=== PATIENT | male | born 1935 | race Caucasian/White ===

== ENCOUNTER 2018-11-22 13:33 | Inpatient (IN) | payer MEDICARE, OTHER ==
[~2018-11-22] VITALS: Ht 167.6 cm; Wt 80.3 kg
--- NOTE | 2018-11-22 13:55 | NUR ---
REPORT RECEIVED FROM ADELINA SHAFFER AT [facility]. THIS RN WILL AWAIT PT'S ARRIVAL.
[2018-11-22] MEDS ORDERED: ONDANSETRON 4 MG/2 ML (SDV) Z0FRAN IV PRN (14:00)
[2018-11-22] MEDS ORDERED: MILK OF MAGNESIA 400 MG/5 ML 30 ML UDC PO PRN (14:00)
[2018-11-22] MEDS ORDERED: ACETAMINOPHEN 500 MG TAB (TYLENOL) PO PRN (14:00)
[2018-11-22] MEDS ORDERED: BENZONATATE 100 MG (TESSALON) CAPSULE PO PRN (14:00)
[2018-11-22] MEDS ORDERED: ANTACID SUSP 30 ML UDC (MYLANTA) PO PRN (14:00)
--- NOTE | 2018-11-22 14:40 | NUR ---
MARIA L CORREA admitted to room 404-1, with an admitting diagnosis of SEPSIS, on 11/22/18 from [facility] ED via EMS. MARIA L CORREA introduced to surroundings, call light, bed controls, phone, TV, temperature control, lights, meal times, smoking policy, visitor policy, side rail policy, bathrooms and showers. Patient Rights given to patient in the handbook. MARIA L CORREA verbalizes understanding that [facility] is not responsible for the loss or damage to any personal effects or valuables that are kept in the patients possession during their hospitalization. MARIA L CORREA verbalizes understanding of Interdisciplinary Patient Education. Patient and family were informed about the Rapid Response Team and its purpose. THIS RN WILL ASSUME PT CARE AT THIS TIME.
[2018-11-22] MEDS ORDERED: PIPERACILLIN/TAZO 4.5 GM/NS 100 ML IV NR ×2 (15:00)
[2018-11-22] MEDS ORDERED: CATHETER FLUSH 10 ML SYR IV PRN (15:15)
[2018-11-22] MEDS: NS IV 1000 ML 1,000 ML IV SCH (15:26)
[2018-11-22 15:30] VITALS: BP 107/70
--- NOTE | 2018-11-22 15:35 | History & Physical-Hospitalist ---
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 He states he just couldn't wake up this morning and really dang snot give much other detail. He is very tearful during exam and states it is due to his stroke. He becomes easily distraught and states that his knows his history. No family is at bedside to assist with HPI or ROS. Most o fhistory is from report from MD at OSH. He reportedly has had a cough and fever and that is why his brought him to the ER. He was found to have an elevated white count and left sided infiltrate on CXR there and was transferred here for admission. Source: patient Exam Limitations: clinical condition Date Seen 11/22/18 Time Seen by a Provider: 15:35 Attending Physician Luis Tony MD PCP SelfSumeet MD Referring Physician Date of Admission Nov 22, 2018 at 14:40 Home Medications & Allergies Home Medications Reviewed patient Home Medication Reconciliation performed by pharmacy medication reconciliations mechanical system technician and/or nursing. Patients Allergies have been reviewed. Allergies Allergies Coded Allergies aspirin (Verified Allergy, Severe, 11/22/18) butalbital (Verified Allergy, Severe, 11/22/18) caffeine (Verified Allergy, Severe, 11/22/18) atropine (Verified Allergy, Unknown, 11/22/18) celecoxib (Verified Allergy, Unknown, 11/22/18) diphenoxylate (Verified Allergy, Unknown, 11/22/18) levofloxacin (Verified Allergy, Unknown, 11/22/18) strawberry (Verified Allergy, Unknown, 11/22/18) Uncoded Allergies BEE STING ( Allergy, Severe, 11/22/18) Past Snoiykq-Hxpult-Yvqwjp Hx Past Med/Social Hx: Reviewed Nursing Past Med/Soc Hx Patient Social History Marrital Status: Employed/Student: retired Smoking Status: Former Smoker Past Medical History Cardiac: Atrial Fibrillation, Hypertension Neurological: Stroke Genitourinary: Prostate Problems Endocrine: Diabetes, Non-Insulin dep Psychosocial: Depression Family History Reviewed Nursing Family Hx No Pertinent Family Hx Review of Systems ROS-Unable to Obtain: very limited but tearfulness Constitutional: see HPI, fever Respiratory: cough; No phlegm Physical Exam Physical Exam Vital Signs Vital Signs - First Documented 11/22/18 11/22/18 15:00 15:30 Temp 100.5 Pulse 134 Resp 18 B/P (MAP) 107/70 (82) Pulse Ox 95 O2 Delivery Nasal Cannula O2 Flow Rate 4.00 Capillary Refill : Height, Weight, BMI Height: '" Weight: 177lbs. 2.0oz. [id number]; BMI Method: General Appearance: Chronically ill, Other (tearful throughout must of exam) HEENT: PERRL/EOMI, Moist Mucous Membranes, Other (sunken eyes) Neck: Non Tender, Supple Respiratory: No Accessory Muscle Use, No Respiratory Distress, Crackles (left sided) Cardiovascular: Systolic Murmur, Tachycardia Gastrointestinal: Normal Bowel Sounds, Non Tender, Soft Extremity: Normal Capillary Refill, No Calf Tenderness, No Pedal Edema Neurologic/Psychiatric: Alert, Oriented x3, Other (labile affect, went from conversant and pleasant to weaping in seconds) Skin: Normal Color, Warm/Dry Results Results/Procedures Labs Laboratory Tests 11/23/18 06:00 Patient resulted labs reviewed. Assessment/Plan Admission Diagnosis Sepsis from CAP Admission Status: Inpatient Order (span 2 midnights) Reason for Inpatient Admission: Sepsis, needs IV abx, curb score elevated Diagnosis/Problems Diagnosis/Problems (1) Sepsis Status: Acute Assessment & Plan: Febrile with leukocytosis No hypotension, lactic acid normal at outside facility Received Zosyn, will continue Cultures done there, will await results Qualifiers: Sepsis type: sepsis due to unspecified organism Qualified Codes: A41.9 - Sepsis, unspecified organism (2) CAP (community acquired pneumonia) Status: Acute Assessment & Plan: LLL per outside records Contineu abx as above Will get strep pna and legionella antigens Qualifiers: Laterality: left Lung location: lower lobe of lung Qualified Codes: J18.1 - Lobar pneumonia, unspecified organism (3) CVA, old, hemiparesis Assessment & Plan: left sided weakness predates this admission from CVA 7 years ago PT/OT will in the hospital LUIS TONY MD Nov 22, 2018 15:35
[2018-11-22] MEDS: ACETAMINOPHEN 325 MG TABLET PO PRN (15:37)
[2018-11-22] MEDS ORDERED: METF-398 PO (15:49)
[2018-11-22] MEDS ORDERED: MONT10TA24 PO (15:49)
[2018-11-22] MEDS ORDERED: FINA5TAB6 PO (15:49)
[2018-11-22] MEDS ORDERED: WARF3TAB56 PO (15:49)
[2018-11-22] MEDS ORDERED: ATOR10TA66 PO (15:49)
[2018-11-22] MEDS ORDERED: TAMS0.4C2 PO (15:49)
[2018-11-22] MEDS ORDERED: TRIM100T PO (15:49)
[2018-11-22] MEDS ORDERED: LISI-556 PO (15:49)
[2018-11-22] MEDS ORDERED: SITA100T12 PO (15:49)
[2018-11-22] MEDS ORDERED: OMEP20CA12 PO (15:49)
[2018-11-22] MEDS ORDERED: WARF1TAB82 PO (15:49)
[2018-11-22] MEDS ORDERED: FLU QUADRIvalent (5+ YOA) 2018-2019 (AFLURIA) 0.5 ML IM ONE (16:00)
[2018-11-22] MEDS ORDERED: ASCO-262 PO (16:09)
[2018-11-22] MEDS ORDERED: MULT-35 PO (16:09)
[2018-11-22] MEDS ORDERED: NIAC500T24 PO (16:09)
[2018-11-22] MEDS ORDERED: IRON150C3 PO (16:09)
[2018-11-22] MEDS ORDERED: ACET-2267 PO (16:09)
[2018-11-22] MEDS ORDERED: FLAX100031 PO (16:09)
[2018-11-22] MEDS ORDERED: CHOL2000 PO (16:09)
[2018-11-22] MEDS ORDERED: FAMO-119 PO (16:09)
--- NOTE | 2018-11-22 16:11 | NUR ---
WENT OVER THE EXT MED HX WITH THE PATIENTS , SHE VERIFIED HOW HE TAKES HIS MEDICATIONS WELL LISTED HIS OTC MEDS. SHE STATES HIS LIPITOR DOSE HAS BEEN DECREASED TO 1/2 TAB DAILY RECENTLY.
--- NOTE | 2018-11-22 16:57 | NUR ---
THIS RN SPOKE WITH DR SHELLEY IN REGARDS TO PT DIET. NEW ORDER RECEIVED AT THIS TIME
[2018-11-22 17:05] VITALS: BP 107/70
[2018-11-22] MEDS ORDERED: RT-ALBUTEROL/IPRATROPIUM 3 ML (DUONEB) VIAL INH PRN (17:30)
[2018-11-22] MEDS ORDERED: RT-ALBUTEROL SULF 2.5 MG/3 ML PRE-MIX VIAL IH PRN (18:00)
[2018-11-22 19:20] VITALS: BP 106/71
[2018-11-22] MEDS: RT-ALBUTEROL SULF 2.5 MG/3 ML PRE-MIX VIAL IH SCH (19:33)
--- NOTE | 2018-11-22 20:00 | NUR ---
UPON ASSESSMENT, PATIENTS SCROTUM DOES HAVE SEVERAL SMALL AREAS WHERE SKIN IS BROKEN. CLEANSED WELL, APPLIED ZINC AND A SCROTAL SLING TO HELP KEEP AREA DRY. PATIENT SPILLS WHEN USING HIS URINAL. Addendum: 11/22/18 at 2257 by CHAVA HARVEY RN Amended: Links added.
[2018-11-22] MEDS ORDERED: RT-ALBUTEROL/IPRATROPIUM 3 ML (DUONEB) VIAL INH SCH (21:00)
[2018-11-22] MEDS: inSUlin ASPART (NovoLOG) 1 UNIT/0.01 ML (CHARGE PER UNIT) SC SCH (21:02)
[2018-11-22] MEDS: PIPERACILLIN SODIUM/TAZOBACTAM 4.5 GM in NS (IVPB) 100 ML IV SCH (21:02)
[2018-11-22 23:17] VITALS: BP 130/63
[2018-11-23] MEDS: NS IV 1000 ML 1,000 ML IV SCH (01:10)
[2018-11-23] MEDS: RT-ALBUTEROL SULF 2.5 MG/3 ML PRE-MIX VIAL IH SCH ×4 (03:06→20:18)
[2018-11-23 04:19] VITALS: BP 125/59
[2018-11-23] MEDS: PIPERACILLIN SODIUM/TAZOBACTAM 4.5 GM in NS (IVPB) 100 ML IV SCH ×3 (05:13→21:28)
[2018-11-23] MEDS: inSUlin ASPART (NovoLOG) 1 UNIT/0.01 ML (CHARGE PER UNIT) SC SCH ×4 (05:44→21:00)
[2018-11-23 06:15] LABS: BASOPHILS % (AUTO) 0 % (0-10); EOSINOPHILS # (AUTO) 0.1 10^3/uL (0.0-0.3); EOSINOPHILS % (AUTO) 1 % (0-10); HEMATOCRIT 29 % (40-54); HEMOGLOBIN 9.1 G/DL (13.3-17.7); LYMPHOCYTES # (AUTO) 2.8 X 10^3 (1.0-4.0); LYMPHOCYTES % (AUTO) 20 % (12-44); MEAN CORPUSCULAR HEMOGLOBIN 28 PG (25-34); MEAN CORPUSCULAR HGB CONC 31 G/DL (32-36); MEAN CORPUSCULAR VOLUME 90 FL (80-99); MEAN PLATELET VOLUME 9.5 FL (7.4-10.4); MONOCYTES # (AUTO) 1.2 X 10^3 (0.0-1.0); MONOCYTES % (AUTO) 8 % (0-12); NEUTROPHILS # (AUTO) 10.2 X 10^3 (1.8-7.8); NEUTROPHILS % (AUTO) 71 % (42-75); PLATELET COUNT 260 10^3/uL (130-400); RED BLOOD COUNT 3.24 10^6/uL (4.35-5.85); RED CELL DISTRIBUTION WIDTH 16.2 % (10.0-14.5); WHITE BLOOD COUNT 14.3 10^3/uL (4.3-11.0)
[2018-11-23 06:31] LABS: ANISOCYTOSIS SLIGHT; BAND NEUTROPHILS 4 %; BASOPHILS % (MANUAL) 0 %; EOSINOPHILS % (MANUAL) 0 %; HYPOCHROMASIA SLIGHT; LYMPHOCYTES % (MANUAL) 17 %; MONOCYTES % (MANUAL) 3 %; NEUTROPHILS % (MANUAL) 75 %; REACTIVE LYMPHOCYTES 1 %; ROULEAUX SLIGHT; TEAR DROP CELLS SLIGHT
[2018-11-23 06:46] LABS: ALANINE AMINOTRANSFERASE 8 U/L (0-55); ALBUMIN 2.6 GM/DL (3.2-4.5); ALKALINE PHOSPHATASE 39 U/L (40-136); BILIRUBIN,TOTAL 0.3 MG/DL (0.1-1.0); BUN/CREATININE RATIO 11; CALCIUM 8.1 MG/DL (8.5-10.1); CARBON DIOXIDE 17 MMOL/L (21-32); CHLORIDE 108 MMOL/L (98-107); CREATININE SERUM 1.15 MG/DL (0.60-1.30); GFR ESTIMATED > 60; GLUCOSE 135 MG/DL (70-105); POTASSIUM 4.4 MMOL/L (3.6-5.0); SODIUM 133 MMOL/L (135-145); TOTAL PROTEIN 5.4 GM/DL (6.4-8.2)
[2018-11-23 08:00] VITALS: BP 119/60
[2018-11-23] MEDS: ACETAMINOPHEN 325 MG TABLET PO PRN ×2 (08:17→17:43)
--- NOTE | 2018-11-23 09:09 | Physical Therapy Evaluation ---
PT Evaluation-General Medical Diagnosis Admission Date Nov 22, 2018 at 14:40 Medical Diagnosis: pneumonia Onset Date: Nov 22, 2018 Therapy Diagnosis Therapy Diagnosis: debility/weakness Height/Weight Height (Feet): 5 Height (Inches): 6.00 Weight (Pounds): 177 Weight (Ounces): 2.0 Precautions Precautions/Isolations: Fall Prevention, Standard Precautions Weight Bear Status Right Lower Extremity: Right Weight Bearing/Tolerated Left Lower Extremity: Left Weight Bearing/Tolerated Referral Physician: Cecily Reason for Referral: Evaluation/Treatment Medical History Pertinent Medical History: CVA (7yr left hemiparesis) Current History ER with fatigue/cough/fever Reviewed History: Yes Social History Home: Single Level Current Living Status: Spouse Entry Into Home: Ramp Prior/Core FIM Prior Level of Function Therapy Code Descriptions/Definitions Functional Barre Measure: 0=Not Assessed/NA 4=Minimal Assistance 1=Total Assistance 5=Supervision or Setup 2=Maximal Assistance 6=Modified Barre 3=Moderate Assistance 7=Complete Barre Therapy Quality Codes: 6 Independent with activity with or without an assistive device 5 Patient requires set up or clean up by helper. Patient completes activity by themselves 4 Supervision or touching assist (CGA). [place] provide cues , steadying assist 3 The helper provides less than half the effort to complete the activity 2 The helper provides more than half the effort to complete the activity 1 Dependent. The helper does all the effort to complete an activity 7 Patient refused to complete or attempt activity 9 The patient did not perform the activity before the current illness or injury 88 Not attempted due to Medical conditions or safety concerns Functional Abilities and Goals: Independent: Patient completed the activities by him/herself, with or without an assistive device, with no assistance from a helper. Needed Some Help: Patient needed partial assistance from another person to complete activities. Dependent: A helper completed the activities for the patient. Unknown: Not Applicable: Bed Mobility: 1 Transfers (B,C,W/C) (FIM): 1 Wheelchair Mobility: 1 Indoor Mobility (Ambulation): Dependent Stairs: Dependent Prior Devices Use: Manual wheelchair Prior Device Use: left chair Spouse performs all functional mobility/bed mobility/transfers to w/c and lift chair. Patient is dependent and non ambulatory PLOF PT Evaluation-Current Subjective Patient and spouse agree to up in recliner. Pain Numeric Pain Scale: 0-No Pain Location: No Pain Reported Objective Patient Orientation: Confused Problem Solving: Poor Attachments: Oxygen, IV ROM/Strength ROM Lower Extremities bilateral LE WFL Strength Lower Extremities right LE 3-/5 grossly left LE flaccid Integumentary/Posture Integumentary refer to nursing notes Bowel Incontinence: Yes Bladder Incontinence: Yes Posture WFL Neuromuscular (Tone, Coordination, Reflexes) flaccid left side/right side grossly intact Sensory Vision: Functional Hearing: Impaired Sensation Right Lower Extremit: Impaired Sensation Left Lower Extremity: Impaired Transfers Therapy Code Descriptions/Definitions Functional Barre Measure: 0=Not Assessed/NA 4=Minimal Assistance 1=Total Assistance 5=Supervision or Setup 2=Maximal Assistance 6=Modified Barre 3=Moderate Assistance 7=Complete Barre Transfers (B, C, W/C) (FIM): 1 Scootin Rollin Supine to/from Sit: 1 Sit to/from Stand: 1 bed t/f WC(FIM only if WC use): 1 dependent with all mobility to right Gait Mode of Locomotion: Wheelchair Anticipated Mode of Locomotion: Wheelchair Balance Sitting Static: Fair Sitting Dynamic: Poor Standing Static: Poor Standing Dynamic: Poor Assessment/Needs 83 y.o. male, will be seen short term by skilled PT to address functional mobility. Patient is dependent PLOF with all gross motor skills, ADLs, etc. Spouse performs all PLOF. Rehab Potential: Guarded PT Short Term Goals Short Term Goals Time Frame: Nov 30, 2018 Transfers (B,C,W/C) (FIM): 1 PT Plan Problem List Problem List: Activity Tolerance, Functional Strength, Safety, Balance, Transfer, Bed Mobility Treatment/Plan Treatment Plan: Continue Plan of Care Treatment Plan: Bed Mobility, Education, Functional Activity Don, Functional Strength, Safety, Therapeutic Exercise, Transfers Treatment Duration: Nov 30, 2018 Frequency: 5 times per week Estimated Hrs Per Day: .25 hour per day Patient and/or Family Agrees t: Yes Discharge Recommendations Therapy D/C Recommendations: Home w/ Family Support, Longterm Placement Time/GCodes Time In: 838 Time Out: 855 Total Billed Treatment Time: 17 Total Billed Treatment 1 visit EVMod 17 min MARLON BROWER PT Nov 23, 2018 09:09
[2018-11-23] MEDS: lisINopril 5 MG (PRINIVIL) TABLET PO SCH (09:19)
[2018-11-23] MEDS: FINASTERIDE (PROSCAR) 5 MG TAB PO SCH (09:19)
--- NOTE | 2018-11-23 11:25 | Progress Note-Hospitalist ---
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 He states he just couldn't wake up this morning and really dang snot give much other detail. He is very tearful during exam and states it is due to his stroke. He becomes easily distraught and states that his knows his history. No family is at bedside to assist with HPI or ROS. Most o fhistory is from report from MD at OSH. He reportedly has had a cough and fever and that is why his brought him to the ER. He was found to have an elevated white count and left sided infiltrate on CXR there and was transferred here for admission. Subjective/Events-last exam Pt reports feeling much better. States he is "great" Objective Exam Vital Signs Vital Signs Date Time Temp Pulse Resp B/P (MAP) Pulse Ox O2 Delivery O2 Flow Rate FiO2 11/23/18 08:00 97.7 100 20 119/60 (79) 98 Nasal Cannula 4.00 Capillary Refill : General Appearance: No Apparent Distress, Chronically ill Respiratory: No Accessory Muscle Use, No Respiratory Distress, Decreased Breath Sounds, Other (on oxygen) Cardiovascular: Regular Rate, Rhythm, No Murmur Neurologic/Psychiatric: Alert, Oriented x3 Results/Procedures Lab Laboratory Tests 11/23/18 06:00 Patient resulted labs reviewed. Assessment/Plan Assessment and Plan Assess & Plan/Chief Complaint Sepsis Diagnosis/Problems Diagnosis/Problems (1) Sepsis Status: Acute Assessment & Plan: No longer febrile, leukocytosis trending down Continue on Zosyn Cultures done there, will await results Qualifiers: Sepsis type: sepsis due to unspecified organism Qualified Codes: A41.9 - Sepsis, unspecified organism (2) CAP (community acquired pneumonia) Status: Acute Assessment & Plan: LLL per outside records Continue abx as above Will get strep pna and legionella antigens ST to evaluate to make sure no concerns for aspiration Qualifiers: Laterality: left Lung location: lower lobe of lung Qualified Codes: J18.1 - Lobar pneumonia, unspecified organism (3) CVA, old, hemiparesis Assessment & Plan: left sided weakness predates this admission from CVA 7 years ago PT/OT will in the hospital Clinical Quality Measures DVT/VTE Risk/Contraindication: Risk Factor Score Per Nursin RFS Level Per Nursing on Admit: 4+=Very High LUIS SHELLEY MD Nov 23, 2018 11:25
--- NOTE | 2018-11-23 11:42 | ST Dysphagia Evaluation ---
Speech Evaluation-General Medical Diagnosis pneumonia Onset Date: Nov 22, 2018 Therapy Diagnosis Therapy Diagnosis: Oropharyngeal Dysphagia Precautions Precautions: Aspiration Precautions/Isolations: Aspiration, Fall Prevention, Standard Precautions Medical History Pertinent Medical History: CVA (7yr left hemiparesis) Reviewed History: Yes Social History Current Living Status: Spouse Speech PLF/Current-Dysphagia Prior Level of Function Patient lived at home with his . He states he ate whatever he wanted without any problems. Subjective Patient was pleasant with the Bedside Dysphagia Evaluation. Patient's was present for the evaluation. Cognitive Status Patient Orientation: Person, Place, Time, Situation Oral Motor Skills Denture Type: Full- Upper & Lower Current Food Consistancy: Dysphagia Soft, Thin Liquids Ability to Follow Directions: Excellent Oral Expression Ability: No Impairment Patient does cry quite frequently which is a residual effect of his CVA approximately 7 years ago. Voice Voice Phonatory-Based Quality: Normal Voice Pitch: Normal Voice Loudness: Normal Face Facial Symmetry: Symmetrical Oral-Facial Assessment Oral-Facial Dentition: Normal Labial Seal Description: Normal Puff Cheeks: Normal Lingual Protrusion: Normal Lingual ROM: Normal Lingual Strength: Normal Gag Reflex Response: Normal Pharynx Velopharyngeal Move.: Normal Volitional Dry Swallow: Yes Voluntary Cough: Yes Can Clear Throat Volitionally: Yes Dysphagia Evaluation Consistencies Presented: Thin Liquid, Mechanical Soft, Ground, Pureed Patient exhibits adequate bolus management. Funct. Velo/Pharyngeal Symptom: Clears Throat Dietary Recommendations: Mechanical Soft Liquid Recommendations: Thin Swallowing Precautions: Alternate Liquids/Solids, Double Swallow, Liquids from Straw, Small Bites and Sips, Sitting Upright 90 Degrees, Sitting 90 Degrees 30 Post Intake Dysphagia Evaluation Summary Patient is an 83 year old male who came to the ED with a diagnosis of pneumonia. Patient was evaluated for swallow function via Bedside Dysphagia Evaluation. Patient stated he eats most everything he wanted when he was home as long as he has his teeth in. Patient did not exhibit any difficulty with all consistencies presented. Patient is on a Dysphagia II diet level at this time. Barriers to Learning Patient has residual effects of a previous CVA approximately 7 years ago. Speech Short Term Goals Short Term Goals Short Term Goals 1) Patient will tolerate least restrictive diet level without s/s of aspiration at 90% or greater. 2) Patient will utilize compensatory strategies for safety of oral intake at 90 % or greater. Speech Fourchette Sewer Goals Fourchette Sewer Goals Patient will maintain adequate nutrition and hydration via safe effective swallow function. Speech-Plan Patient/Family Goals Patient/Family Goals: Patient will return home with his when released from the hospital. Treatment Plan Speech Therapy Treatment Plan: Continue Plan of Care Patient is progressing well with diet level. Treatment Duration: Nov 27, 2018 Frequency: 3 times per week Estimated Hrs Per Day: .25 hour per day Rehab Potential: Guarded Barriers to Learning: Patient has residual effects of a previous CVA approximately 7 years ago. Pt/Family Agrees to Plan: Yes Safety Risks/Education Teaching Recipient: Patient, Significant Other Teaching Methods: Discussion Response to Teaching: Verbalize Understanding Education Topics Provided: Safety of oral intake, compensatory strategies. Time Speech Therapy Time In: 11:20 Speech Therapy Time Out: 11:35 Total Billed Time: 15 Billed Treatment Time LoulouABELARDO BETHANIA ST Nov 23, 2018 11:42
[2018-11-23 12:00] VITALS: BP 111/63
--- NOTE | 2018-11-23 12:49 | Occupational Therapy Eval ---
OT Evaluation-General/PLF Medical Diagnosis Admission Date Nov 22, 2018 at 14:40 Medical Diagnosis: pneumonia Onset Date: Nov 22, 2018 Therapy Diagnosis Therapy Diagnosis: debility Height/Weight Height (Feet): 5 Height (Inches): 6.00 Weight (Pounds): 177 Weight (Ounces): 2.0 Precautions Precautions/Isolations: Aspiration, Fall Prevention, Standard Precautions Safety Interventions: Notify Family, Bed Exit Alarm, Reorient-PRN Referral Physician: Cecily Medical History Pertinent Medical History: CVA (7yr left hemiparesis) Current History Pt admitted with pneumonia Social History Home: Single Level Current Living Status: Spouse Entry Into Home: Ramp ADL-Prior Level of Function Therapy Code Descriptions/Definitions Functional Meta Measure: 0=Not Assessed/NA 4=Minimal Assistance 1=Total Assistance 5=Supervision or Setup 2=Maximal Assistance 6=Modified Meta 3=Moderate Assistance 7=Complete Meta Therapy Quality Codes: 6 Independent with activity with or without an assistive device 5 Patient requires set up or clean up by helper. Patient completes activity by themselves 4 Supervision or touching assist (CGA). [place] provide cues , steadying assist 3 The helper provides less than half the effort to complete the activity 2 The helper provides more than half the effort to complete the activity 1 Dependent. The helper does all the effort to complete an activity 7 Patient refused to complete or attempt activity 9 The patient did not perform the activity before the current illness or injury 88 Not attempted due to Medical conditions or safety concerns Functional Abilities and Goals: Independent: Patient completed the activities by him/herself, with or without an assistive device, with no assistance from a helper. Needed Some Help: Patient needed partial assistance from another person to complete activities. Dependent: A helper completed the activities for the patient. Unknown: Not Applicable: ADL PLOF Comments Spouse states she assisted pt with all ADLs and transfers. Pt has a manual w/c for inside mobility and a power w/c when outside. Self Care: Dependent DME/Equipment: Grab Bars Pt does not get into the shower secondary to fall risk. Spouse gives him sponge baths. Drive Self: No OT Current Status Subjective Pt sitting in chair with spouse present, agrees to evaluation. No c/o pain Mental Status/Objective Patient Orientation: Person Attachments: Oxygen Current Glasses/Contacts: Yes Dentures/Partials: Yes Hand Dominance: Right Upper Extremity ROM Right Grossly WFL Left UE impaired secondary to prior CVA Upper Extremity Coordination Intact ADL-Treatment ADL-Current Pt sitting in chair. Participated in UE assessment. Pt able to move right UE ( somewhat limited elbow flexion secondary to placement of IV). No active movement of left UE secondary to prior CVA. Pt and spouse report that spouse assists pt with all ADLs and transfers at baseline. They state they have figured out a system to complete functional tasks and pt has the needed home equipment. Pt states he spends most of his time in the w/c or his lift chair. Pt was assisted to recliner this morning with PT, requiring total assist. Pt does not required skilled OT services at this time as he is at baseline, requiring assist for ADLs and transfers. Pt sitting in chair with all needs met and spouse present after session. Therapy Code Descriptions/Definitions Functional Meta Measure: 0=Not Assessed/NA 4=Minimal Assistance 1=Total Assistance 5=Supervision or Setup 2=Maximal Assistance 6=Modified Meta 3=Moderate Assistance 7=Complete Meta Therapy Quality Codes: 6 Independent with activity with or without an assistive device 5 Patient requires set up or clean up by helper. Patient completes activity by themselves 4 Supervision or touching assist (CGA). [place] provide cues , steadying assist 3 The helper provides less than half the effort to complete the activity 2 The helper provides more than half the effort to complete the activity 1 Dependent. The helper does all the effort to complete an activity 7 Patient refused to complete or attempt activity 9 The patient did not perform the activity before the current illness or injury 88 Not attempted due to Medical conditions or safety concerns Education OT Patient Education: Rehab process Teaching Recipient: Patient, Family Teaching Methods: Discussion OT Short Term Goals Short Term Goals Transfers (B,C,W/C) (FIM): 1 1=Demonstrate adherence to instructed precautions during ADL tasks. 2=Patient will verbalize/demonstrate understanding of assistive devices/ modifications for ADL. 3=Patient will improve strength/tolerance for activity to enable patient to perform ADL's. OT Snf Goals Snf Goals 1=Demonstrate adherence to instructed precautions during ADL tasks. 2=Patient will verbalize/demonstrate understanding of assistive devices/ modifications for ADL. 3=Patient will improve strength/tolerance for activity to enable patient to perform ADL's. OT Education/Plan Problem List/Assessment Assessment: No Skilled OT Needs ID'd Pt receives assist for ADLs and transfers at baseline. Pt admitted to hospital with pneumonia. No skilled OT intervention indicated at this time as pt is at baseline functioning, requiring assist for all functional tasks. Discharge Recommendations Plan/Recommendations: Discontinue OT Treatment Plan/Plan of Care Treatment,Training & Education: No Treatment Duration: Nov 23, 2018 Frequency: 1 time per week (one time-evaluation only) Estimated Hrs Per Day: Other (evaluation only-DC OT) Rehab Potential: Guarded Time/GCodes Start Time: 09:58 Stop Time: 10:10 Total Time Billed (hr/min): 12 Billed Treatment Time 1 visit, SMITHA(12minutes) HANS CASTREJON OT Nov 23, 2018 12:49
[2018-11-23 16:00] VITALS: BP 132/77
[2018-11-23] MEDS ORDERED: TAMSULOSIN 0.4 MG (FLOMAX) CAP PO SCH (17:30)
[2018-11-23] MEDS ORDERED: warFARin 2 MG (COUMADIN) TAB PO SCH (18:00)
[2018-11-23 20:34] VITALS: BP 137/77
[2018-11-23] MEDS ORDERED: TRIMETHOPRIM 100 MG TAB (PROLOPRIM) NON-FORMULARY PO SCH (21:00)
[2018-11-23] MEDS ORDERED: ATORVASTATIN 10 MG (LIPITOR) TABLET PO SCH (21:00)
[2018-11-23] MEDS ORDERED: MONTELUKAST 10 MG (SINGULAIR) TAB PO SCH (21:00)
[2018-11-24 00:10] VITALS: BP 132/63
[2018-11-24] MEDS: RT-ALBUTEROL SULF 2.5 MG/3 ML PRE-MIX VIAL IH SCH ×2 (03:18→08:59)
[2018-11-24 04:10] VITALS: BP 130/63
[2018-11-24 05:31] LABS: BASOPHILS % (AUTO) 0 % (0-10); EOSINOPHILS # (AUTO) 0.4 10^3/uL (0.0-0.3); EOSINOPHILS % (AUTO) 4 % (0-10); HEMATOCRIT 30 % (40-54); HEMOGLOBIN 9.3 G/DL (13.3-17.7); LYMPHOCYTES # (AUTO) 3.6 X 10^3 (1.0-4.0); LYMPHOCYTES % (AUTO) 36 % (12-44); MEAN CORPUSCULAR HEMOGLOBIN 28 PG (25-34); MEAN CORPUSCULAR HGB CONC 31 G/DL (32-36); MEAN CORPUSCULAR VOLUME 90 FL (80-99); MEAN PLATELET VOLUME 9.9 FL (7.4-10.4); MONOCYTES # (AUTO) 0.8 X 10^3 (0.0-1.0); MONOCYTES % (AUTO) 8 % (0-12); NEUTROPHILS # (AUTO) 5.4 X 10^3 (1.8-7.8); NEUTROPHILS % (AUTO) 53 % (42-75); PLATELET COUNT 255 10^3/uL (130-400); RED BLOOD COUNT 3.29 10^6/uL (4.35-5.85); RED CELL DISTRIBUTION WIDTH 16.3 % (10.0-14.5); WHITE BLOOD COUNT 10.2 10^3/uL (4.3-11.0)
[2018-11-24] MEDS: PIPERACILLIN SODIUM/TAZOBACTAM 4.5 GM in NS (IVPB) 100 ML IV SCH (05:53)
[2018-11-24 05:55] LABS: CARBON DIOXIDE 18 MMOL/L (21-32); CHLORIDE 108 MMOL/L (98-107); POTASSIUM 3.8 MMOL/L (3.6-5.0); SODIUM 136 MMOL/L (135-145)
[2018-11-24 05:56] LABS: ALANINE AMINOTRANSFERASE < 6 U/L (0-55); ALBUMIN 2.8 GM/DL (3.2-4.5); ALKALINE PHOSPHATASE 42 U/L (40-136); BILIRUBIN,TOTAL 0.4 MG/DL (0.1-1.0); BUN/CREATININE RATIO 9; CALCIUM 8.3 MG/DL (8.5-10.1); CREATININE SERUM 0.99 MG/DL (0.60-1.30); GFR ESTIMATED > 60; GLUCOSE 142 MG/DL (70-105); TOTAL PROTEIN 5.9 GM/DL (6.4-8.2)
[2018-11-24] MEDS: inSUlin ASPART (NovoLOG) 1 UNIT/0.01 ML (CHARGE PER UNIT) SC SCH ×2 (07:00→11:35)
[2018-11-24 08:00] VITALS: BP 132/65
[2018-11-24] MEDS: lisINopril 5 MG (PRINIVIL) TABLET PO SCH (08:26)
[2018-11-24] MEDS: FINASTERIDE (PROSCAR) 5 MG TAB PO SCH (08:27)
[2018-11-24] MEDS ORDERED: PANTOPRAZOLE 20 MG TABLET (PROTONIX) PO SCH (09:00)
--- NOTE | 2018-11-24 11:18 | NUR ---
patient only gets up to use the commode and to get into the chair; patient was moved earlier from bed to commode and then the chair and was still at 92%; patient was left on RA for over 1 hour and was still at 90%. Patient stood up x2 with assistance due to patient not being able to use his left arm and leg and did not drop below 89% and went right back up to 90% and above
[2018-11-24] MEDS ORDERED: AMOX-358 PO (11:20)
[2018-11-24] MEDS ORDERED: L.AC1CAP6 PO (11:20)
--- NOTE | 2018-11-24 11:21 | Discharge Inst-Simple/Standard ---
Discharge Inst-Standard Discharge Medications New, Converted or Re-Newed RX: Transmitted to Pharmacy Patient Instructions/Follow Up Plan of Care/Instructions/FU: Please continue to take your medications as written. Please follow up with your PCP next week. Activity as Tolerated: Yes Discharge Diet: Cardiac Diet Return to The Hospital For: Shortness of breath, chest pain, confusion, worsening fever, if you feel you are getting worse. Planned Outpatient Orders/Ref. Pneu Vac Indicated: Yes LUIS SHELLEY MD Nov 24, 2018 11:21
--- NOTE | 2018-11-24 11:22 | Discharge Summary-Hospitalist ---
Diagnosis/Chief Complaint Date of Admission Nov 22, 2018 at 14:40 Date of Discharge Discharge Date: Nov 24, 2018 Admission Diagnosis Sepsis from CAP Discharge Diagnosis (1) Sepsis Status: Acute Assessment & Plan: No longer febrile, leukocytosis trending down Continue on Zosyn Cultures done there, will await results (2) CAP (community acquired pneumonia) Status: Acute Assessment & Plan: LLL per outside records Continue abx as above Will get strep pna and legionella antigens ST to evaluate to make sure no concerns for aspiration (3) CVA, old, hemiparesis Assessment & Plan: left sided weakness predates this admission from CVA 7 years ago PT/OT will in the hospital Discharge Summary Discharge Physical Exam Allergies: Coded Allergies: aspirin (Verified Allergy, Severe, 11/22/18) butalbital (Verified Allergy, Severe, 11/22/18) atropine (Verified Allergy, Unknown, 11/22/18) celecoxib (Verified Allergy, Unknown, 11/22/18) diphenoxylate (Verified Allergy, Unknown, 11/22/18) levofloxacin (Verified Allergy, Unknown, 11/22/18) strawberry (Verified Allergy, Unknown, 11/22/18) Uncoded Allergies: BEE STING (Allergy, Severe, 11/22/18) Vitals & I&Os Vital Signs Date Time Temp Pulse Resp B/P (MAP) Pulse Ox O2 Delivery O2 Flow Rate FiO2 11/24/18 12:06 96 20 132/65 92 Room Air 11/24/18 10:00 2.00 11/24/18 08:00 99.3 General Appearance: No Apparent Distress, Chronically ill Respiratory: Lungs Clear, No Respiratory Distress Cardiovascular: Regular Rate, Rhythm, No Murmur Neurologic/Psychiatric: Alert, Oriented x3 Hospital Course Pt is an 83yoCM with a PMH of CVA and left sided weakness who was admitted due to sepsis from CAP from [facility]. He was treated with IV antibiotics and recovered well. He had an uneventful hospital course and was discharged home in stable condition. He and his were comfortable with plan to DC home and denied any needs. He is to follow up with his PCP to follow up this hospital stay. Labs (last 24 hrs) Patient resulted labs reviewed. Pending Labs Discussion & Recommendations Discharge Planning: >30 minutes discharge planning Discharge Home Medications: Active Scripts Active Probiotic (L.acidoph & Paracasei,B.lactis) 1 Each Capsule 1 Each PO TIDWM Augmentin 875-125 Tablet (Amoxicillin/Potassium Clav) 1 Each Tablet 1 Each PO BID Reported Pepcid (Famotidine) 20 Mg Tablet 20 Mg PO BID Tylenol Extra Strength (Acetaminophen) 500 Mg Tablet 1,000 Mg PO TID Vitamin D (Cholecalciferol (Vitamin D3)) 2,000 Unit Capsule 2,000 Unit PO DAILY Flax Seed Oil (Flaxseed Oil) 1,000 Mg Capsule 1,000 Mg PO DAILY Niacin (Niacinamide) 500 Mg Tablet 500 Mg PO DAILY Vitamin C (Ascorbate Calcium) 500 Mg Tablet 500 Mg PO DAILY Ferrex 150 (Iron Polysaccharide Complex) 150 Mg Capsule 150 Mg PO BID Daily Multiple Vitamin (Multivitamin) 1 Each Tablet 1 Tab PO DAILY Warfarin Sodium 3 Mg Tablet 1.5 Mg PO Q48H TAKES 1/2 (3MG) TABLET ALTERNATES WITH 2MG DOSE Warfarin Sodium 1 Mg Tablet 2 Mg PO Q48H TAKES 2 (1MG) TABLETS ALTERNATES WITH 1.5MG DOSE Montelukast Sodium 10 Mg Tablet 10 Mg PO HS Finasteride 5 Mg Tablet 5 Mg PO DAILY Atorvastatin Calcium 10 Mg Tablet 5 Mg PO HS TAKES 1/2 (10MG) TABLET Metformin HCl 850 Mg Tablet 850 Mg PO BID Trimethoprim 100 Mg Tablet 100 Mg PO HS Lisinopril 5 Mg Tablet 5 Mg PO DAILY Januvia (Sitagliptin Phosphate) 100 Mg Tablet 100 Mg PO DAILY Tamsulosin HCl 0.4 Mg Cap.er.24h 0.4 Mg PO 1730 Omeprazole 20 Mg Capsule.dr 20 Mg PO DAILY Instructions to patient/family Please see electronic discharge instructions given to patient. Clinical Quality Measures DVT/VTE Risk/Contraindication: Risk Factor Score Per Nursin RFS Level Per Nursing on Admit: 4+=Very High Problem Qualifiers (1) Sepsis: Sepsis type: sepsis due to unspecified organism Qualified Codes: A41.9 - Sepsis, unspecified organism (2) CAP (community acquired pneumonia): Laterality: left Lung location: lower lobe of lung Qualified Codes: J18.1 - Lobar pneumonia, unspecified organism LUIS SHELLEY MD Nov 24, 2018 11:22
[2018-11-24 12:06] VITALS: BP 132/65
[2018-11-24] MEDS ORDERED: warFARin 3 MG (COUMADIN) TAB PO SCH (18:00)
== END 2018-11-24 12:08 | disposition home or self-care (01) | DRG 871 ==
LOC: 4TH 14:40
PROVIDERS: ADMIT Family Medicine; ATTEND Family Medicine
DX: A41.9 Sepsis, unspecified organism (principal); J18.1 Lobar pneumonia, unspecified organism; I69.354 Hemiplegia and hemiparesis following cerebral infarction affecting left non-dominant side; Z88.1 Allergy status to other antibiotic agents; Z88.8 Allergy status to other drugs, medicaments and biological substances; Z87.891 Personal history of nicotine dependence; I48.91 Unspecified atrial fibrillation; I10 Essential (primary) hypertension; E11.9 Type 2 diabetes mellitus without complications; F32.9 Major depressive disorder, single episode, unspecified; Z79.01 Long term (current) use of anticoagulants; Z79.84 Long term (current) use of oral hypoglycemic drugs
CPT/HCPCS: 36415; 80053; 82962; 85007; 85025; 85027; 87449; 87899; 94640; 94760; 94761

== ENCOUNTER → 2019-10-07 | Outpatient (CLI) | payer MEDICARE, OTHER ==
[~2019-10-07] MED LIST: ACET-2267 PO; AMOX-358 PO; ASCO-262 PO; ATOR10TA66 PO; CHOL2000 PO; FAMO-119 PO; FINA5TAB6 PO; FLAX100031 PO; IRON150C3 PO; L.AC1CAP6 PO; LISI-556 PO; METF-398 PO; MONT10TA24 PO; MULT-35 PO; NIAC500T24 PO; OMEP20CA13 PO; SITA100T12 PO; TAMS0.4C2 PO; TRIM100T PO; WARF1TAB82 PO; WARF3TAB56 PO
--- NOTE | 2019-10-07 13:35 | Diagnostic Imaging Report ---
INDICATION: Bronchitis and cough. PA and lateral chest obtained at 1:03 p.m. Heart is top limits normal in size. Mediastinal silhouette is unremarkable. There are chronic-appearing increased interstitial markings. There is no overt consolidation or pneumothorax or pleural fluid. IMPRESSION: Chronic-appearing increased interstitial markings with no definite acute abnormality. Dictated by: Dictated on workstation # [id number]
== END ==
LOC: RAD FS 13:14
PROVIDERS: ATTEND Family Medicine
DX: J20.9 Acute bronchitis, unspecified (principal)
CPT/HCPCS: 71046

== ENCOUNTER 2020-01-12 01:49 | Emergency (ER) | payer MEDICARE, OTHER ==
[~2020-01-12] VITALS: Ht 167.7 cm; Wt 75.0 kg
[~2020-01-12 01:49] MED LIST changes: -MONT10TA24 PO; +MONT10TA26 PO; -OMEP20CA13 PO; +OMEP20CA18 PO
--- NOTE | 2020-01-12 02:13 | ED General ---
General Stated Complaint: GENERAL PROBLEMS Source of Information: Patient, EMS, Spouse History of Present Illness Date Seen by Provider: Jan 12, 2020 Time Seen by Provider: 01:49 Initial Comments 84-year-old male presenting with complaints of vomiting and extensive bruising on his chest and right arm. He recently has been on multiple antibiotics for respiratory infections. He still has a cough and some congestion. He tonight was trying to lay down and had an episode of vomiting with some bilious green colored emesis. He has had no fever or chills. He has no abdominal pain. He still has a little bit of nausea. He continues to have some cough and the was worried that he was having some wheezing after vomiting. He had a good-sized bowel movement today. His bowel movements or dark because of taking iron supplements for anemia. Allergies and Home Medications Allergies Coded Allergies: aspirin (Verified Allergy, Severe, 11/22/18) butalbital (Verified Allergy, Severe, 11/22/18) atropine (Verified Allergy, Unknown, 11/22/18) celecoxib (Verified Allergy, Unknown, 11/22/18) diphenoxylate (Verified Allergy, Unknown, 11/22/18) levofloxacin (Verified Allergy, Unknown, 11/22/18) strawberry (Verified Allergy, Unknown, 11/22/18) Uncoded Allergies: BEE STING (Allergy, Severe, 11/22/18) Home Medications Acetaminophen 500 Mg Tablet, 1,000 MG PO TID, (Reported) Amoxicillin/Potassium Clav 1 Each Tablet, 1 EACH PO BID Prescribed by: LUIS SHELLEY on 11/24/18 1120 Ascorbate Calcium 500 Mg Tablet, 500 MG PO DAILY, (Reported) Atorvastatin Calcium 10 Mg Tablet, 5 MG PO HS, (Reported) TAKES 1/2 (10MG) TABLET Cholecalciferol (Vitamin D3) 2,000 Unit Capsule, 2,000 UNIT PO DAILY, (Reported) Famotidine 20 Mg Tablet, 20 MG PO BID, (Reported) Finasteride 5 Mg Tablet, 5 MG PO DAILY, (Reported) Flaxseed Oil 1,000 Mg Capsule, 1,000 MG PO DAILY, (Reported) Iron Polysaccharide Complex 150 Mg Capsule, 150 MG PO BID, (Reported) L.acidoph & Paracasei,B.lactis 1 Each Capsule, 1 EACH PO TIDWM Prescribed by: LUIS SHELLEY on 11/24/18 1120 Lisinopril 5 Mg Tablet, 5 MG PO DAILY, (Reported) Metformin HCl 850 Mg Tablet, 850 MG PO BID, (Reported) Montelukast Sodium 10 Mg Tablet, 10 MG PO HS, (Reported) Multivitamin 1 Each Tablet, 1 TAB PO DAILY, (Reported) Niacinamide 500 Mg Tablet, 500 MG PO DAILY, (Reported) Omeprazole 20 Mg Capsule.dr, 20 MG PO DAILY, (Reported) Sitagliptin Phosphate 100 Mg Tablet, 100 MG PO DAILY, (Reported) Tamsulosin HCl 0.4 Mg Cap.er.24h, 0.4 MG PO 1730, (Reported) Trimethoprim 100 Mg Tablet, 100 MG PO HS, (Reported) Warfarin Sodium 1 Mg Tablet, 2 MG PO Q48H, (Reported) TAKES 2 (1MG) TABLETS ALTERNATES WITH 1.5MG DOSE Warfarin Sodium 3 Mg Tablet, 1.5 MG PO Q48H, (Reported) TAKES 1/2 (3MG) TABLET ALTERNATES WITH 2MG DOSE Patient Home Medication List Home Medication List Reviewed: Yes Review of Systems Review of Systems Constitutional: No chills, No diaphoresis, No fever; malaise EENTM: no symptoms reported Respiratory: cough; No orthopnea, No phlegm; short of breath; No stridor; wheezing Cardiovascular: No chest pain Gastrointestinal: No constipation, No diarrhea; nausea, vomiting (x1) Genitourinary: no symptoms reported Musculoskeletal: other (presenting and soreness to his right upper extremity and chest) Skin: other (bruising and soreness to the right upper extremity and chest) Psychiatric/Neurological: Weakness (chronic left-sided weakness due to prior stroke) Past Eggkwno-Tzcwgx-Yhigys Hx Past Med/Social Hx: Reviewed Nursing Past Med/Soc Hx Patient Social History Type Used: Cigarettes Former Smoker, Quit: Nov 22, 1968 Recent Foreign Travel: No Contact w/Someone Who Travel: No Seasonal Allergies Seasonal Allergies: Yes Past Medical History Surgeries: Yes Respiratory: No Cardiac: Yes (THROMBOSIS) Atrial Fibrillation, Hypertension Neurological: Yes Stroke Genitourinary: No Prostate Problems Gastrointestinal: Yes Gastroesophageal Reflux Musculoskeletal: Yes Arthritis Endocrine: Yes Diabetes, Non-Insulin dep HEENT: No Cancer: No Psychosocial: No Depression Integumentary: No Family Medical History Cardiovascular disease 19 FATHER, Dementia G8 BROTHER G8 SISTER, FH: cancer 19 MOTHER, FH: cancer 19 MOTHER, No Pertinent Family Hx Physical Exam Vital Signs Vital Signs - First Documented 01/12/20 01:58 Temp 36.8 Pulse 106 B/P (MAP) 145/61 (89) Pulse Ox 96 O2 Delivery Room Air Capillary Refill : Height, Weight, BMI Height: 5'6.00" Weight: 177lbs. 2.0oz. [id number]; 28.6 BMI Method: General Appearance: No Apparent Distress, WD/WN HEENT: PERRL/EOMI, Pharynx Normal Neck: Full Range of Motion, Normal Inspection, Non Tender, Supple Respiratory: Lungs Clear, Normal Breath Sounds, Other (mild tenderness to the chest wall where he has bruising) Cardiovascular: Normal Peripheral Pulses, Tachycardia Gastrointestinal: No Pulsatile Mass, Non Tender, Soft Rectal: Normal Exam, Heme Negative Stool, Black Stool Extremity: Normal Capillary Refill, No Calf Tenderness, No Pedal Edema Neurologic/Psychiatric: Alert, Oriented x3, Other (left-sided weakness from chronic stroke) Skin: Warm/Dry, Ecchymosis (extensive bruising to the right upper arm and across his upper torso) Progress/Results/Core Measures Suspected Sepsis SIRS Temperature: Pulse: Respiratory Rate: Laboratory Tests 01/12/20 02:00: White Blood Count 10.5 Blood Pressure / Mean: Laboratory Tests 01/12/20 02:00: Creatinine 1.36H, INR Comment 1.9H, Platelet Count 220, Total Bilirubin 0.4 Results/Orders Lab Results Laboratory Tests Test 01/12/20 02:00 Range/Units White Blood Count 10.5 4.3-11.0 10^3/uL Red Blood Count 2.41 L 4.35-5.85 10^6/uL Hemoglobin 7.6 L 13.3-17.7 G/DL Hematocrit 24 L 40-54 % Mean Corpuscular Volume 99 80-99 FL Mean Corpuscular Hemoglobin 32 25-34 PG Mean Corpuscular Hemoglobin Concent 32 32-36 G/DL Red Cell Distribution Width 13.8 10.0-14.5 % Platelet Count 220 130-400 10^3/uL Mean Platelet Volume 10.5 H 7.4-10.4 FL Neutrophils (%) (Auto) 44 42-75 % Lymphocytes (%) (Auto) 41 12-44 % Monocytes (%) (Auto) 10 0-12 % Eosinophils (%) (Auto) 4 0-10 % Basophils (%) (Auto) 0 0-10 % Neutrophils # (Auto) 4.6 1.8-7.8 X 10^3 Lymphocytes # (Auto) 4.4 H 1.0-4.0 X 10^3 Monocytes # (Auto) 1.0 0.0-1.0 X 10^3 Eosinophils # (Auto) 0.5 H 0.0-0.3 10^3/uL Basophils # (Auto) 0.0 0.0-0.1 10^3/uL Prothrombin Time 22.4 H 12.2-14.7 SEC INR Comment 1.9 H 0.8-1.4 Activated Partial Thromboplast Time 48 H 24-35 SEC Sodium Level 131 L 135-145 MMOL/L Potassium Level 5.3 H 3.6-5.0 MMOL/L Chloride Level 99 98-107 MMOL/L Carbon Dioxide Level 18 L 21-32 MMOL/L Anion Gap 14 5-14 MMOL/L Blood Urea Nitrogen 20 H 7-18 MG/DL Creatinine 1.36 H 0.60-1.30 MG/DL Estimat Glomerular Filtration Rate 50 BUN/Creatinine Ratio 15 Glucose Level 126 H 70-105 MG/DL Calcium Level 8.2 L 8.5-10.1 MG/DL Corrected Calcium 9.2 8.5-10.1 MG/DL Total Bilirubin 0.4 0.1-1.0 MG/DL Aspartate Amino Transf (AST/SGOT) 16 5-34 U/L Alanine Aminotransferase (ALT/SGPT) 9 0-55 U/L Alkaline Phosphatase 56 40-136 U/L Total Protein 5.9 L 6.4-8.2 GM/DL Albumin 2.7 L 3.2-4.5 GM/DL Lipase 26 8-78 U/L My Orders Orders - RAMANDEEP LUTZ MD Comprehensive Metabolic Panel (01/12/20 02:14) Lipase (01/12/20 02:14) Ed Iv/Invasive Line Start (01/12/20 02:14) Cbc With Automated Diff (01/12/20 02:14) Fecal Occult Bedside (01/12/20 02:14) Protime With Inr (01/12/20 02:14) Partial Thromboplastin Time (01/12/20 02:14) Chest 1 View Ap/Pa Only (01/12/20 02:14) Ondansetron Injection (Zofran Injectio (01/12/20 02:15) Ns Iv 500 Ml (Sodium Chloride 0.9%) (01/12/20 03:03) Rx-Ondansetron Po (Rx-Zofran Po) (01/12/20 03:45) Vital Signs/I&O 01/12/20 01:58 Temp 36.8 Pulse 106 B/P (MAP) 145/61 (89) Pulse Ox 96 O2 Delivery Room Air Capillary Refill : Progress Note #1: Progress Note Obtain basic lab with coags. Order a chest x-ray to evaluate his reported cough and wheezing at home. Progress Note #2: Time: 02:59 Progress Note Labs show mild worsening of his anemia with hemoglobin down to 7.6 from baseline of around 9 from a year ago. Has INR is 1.9. His creatinine is slightly elevated to go along with being little bit dry. His potassium is also a little bit high at 5.3. This is likely somewhat due to the hemolysis of the blood and bruising in his tissue as well as being a little bit dry. Will give a small fluid bolus and then he could be discharged to home to follow up with clinic about his breathing and his anemia from coumadin and antibiotics. Progress Note #3: Time: 03:29 Progress Note Reviewed results with patient and family. Will give him the 500 ML bolus of normal saline prior to discharge. Counseled that the bruising is likely due to his blood being a little to them when he threw up a few days ago. Now looks more therapeutic on his INR. Have him recheck his labs with Dr. Shaffer about his renal insufficiency as well as a mild elevation of his potassium. Encouraged to drink more fluids and water to help flush out his kidneys and the potassium. Diagnostic Imaging Diagonstic Imaging: Xray Plain Films/CT/US/NM/MRI: chest Comments On my review of his 1 view chest x-ray he has no definite acute infiltrate or effusion Departure Impression Primary Impression: Anemia, blood loss Additional Impressions: Dehydration Superficial bruising of chest wall Qualified Codes: S20.211A - Contusion of right front wall of thorax, initial encounter Hyperkalemia Renal insufficiency, mild Disposition: 01 HOME, SELF-CARE Condition: Stable Departure-Patient Inst. Decision time for Depature: 03:32 Referrals: GREGG SEARS MD (PCP/Family) Primary Care Physician Patient Instructions: Gastritis (DC), HEMATOMA, Hyperkalemia (DC), Nausea and Vomiting, Adult (DC) Add. Discharge Instructions: Continue on your regular medicines. Finish out the Cephalexin antibiotic Use the Dissolving nausea medicine if needed to help settle your stomach. Keep your appointment with Dr. Sears on and let him know your Hemoglobin was 7.6 and Potassium was 5.3. Drink more water and stay well hydrated Images Torso/Trunk 1 - Ecchymosis (extensive superficial ecchymosis/bruising to right arm and chest) RAMANDEEP LUTZ MD Jan 12, 2020 02:13
[2020-01-12] MEDS ORDERED: ONDANSETRON 4 MG/2 ML (SDV) Z0FRAN IVP STA (02:15)
[2020-01-12 02:19] LABS: HEMATOCRIT 24 % (40-54); HEMOGLOBIN 7.6 G/DL (13.3-17.7); MEAN CORPUSCULAR HEMOGLOBIN 32 PG (25-34); MEAN CORPUSCULAR VOLUME 99 FL (80-99); WHITE BLOOD COUNT 10.5 10^3/uL (4.3-11.0)
[2020-01-12 02:20] LABS: BASOPHILS % (AUTO) 0 % (0-10); EOSINOPHILS # (AUTO) 0.5 10^3/uL (0.0-0.3); EOSINOPHILS % (AUTO) 4 % (0-10); LYMPHOCYTES # (AUTO) 4.4 X 10^3 (1.0-4.0); LYMPHOCYTES % (AUTO) 41 % (12-44); MEAN CORPUSCULAR HGB CONC 32 G/DL (32-36); MEAN PLATELET VOLUME 10.5 FL (7.4-10.4); MONOCYTES % (AUTO) 10 % (0-12); NEUTROPHILS # (AUTO) 4.6 X 10^3 (1.8-7.8); NEUTROPHILS % (AUTO) 44 % (42-75); PLATELET COUNT 220 10^3/uL (130-400); RED CELL DISTRIBUTION WIDTH 13.8 % (10.0-14.5)
[2020-01-12 02:27] LABS: INR 1.9 (0.8-1.4); PROTHROMBIN TIME PATIENT 22.4 SEC (12.2-14.7)
[2020-01-12 02:37] LABS: CREATININE SERUM 1.36 MG/DL (0.60-1.30); POTASSIUM 5.3 MMOL/L (3.6-5.0)
[2020-01-12 02:38] LABS: ALBUMIN 2.7 GM/DL (3.2-4.5); BILIRUBIN,TOTAL 0.4 MG/DL (0.1-1.0); CALCIUM 8.2 MG/DL (8.5-10.1); TOTAL PROTEIN 5.9 GM/DL (6.4-8.2)
--- NOTE | 2020-01-12 02:40 | NUR ---
PT. REPORTED HIS EMESIS WAS YELLOW IN COLOR.
[2020-01-12] MEDS ORDERED: NS IV 500 ML 500 ML IV STA (03:03)
[2020-01-12 03:37] VITALS: BP 136/72
[2020-01-12] MEDS ORDERED: RX-ONDANSETRON 4 MG ODT (ZOFRAN) PPK #4 PO PRN (03:45)
--- NOTE | 2020-01-12 07:56 | Diagnostic Imaging Report ---
EXAMINATION: Chest 1 view HISTORY: Vomiting. Aching. COMPARISON: 10/07/2019. FINDINGS: Patchy bibasilar opacities are present. No focal consolidation is seen. No large pleural effusion or pneumothorax is seen. The cardiomediastinal silhouette is normal in size and contour. There is calcified aortic atherosclerotic plaque. No acute osseous abnormality is seen. IMPRESSION: 1. Patchy bibasilar opacities, which may represent infectious or inflammatory process. A component of atelectasis may also be present. Dictated by: Dictated on workstation # [id number]
== END 2020-01-12 03:51 | disposition home or self-care (01) ==
LOC: EDUNIT# 01:49 → ER FS 01:58
DX: S20.211A Contusion of right front wall of thorax, initial encounter (principal); D50.0 Iron deficiency anemia secondary to blood loss (chronic); E86.0 Dehydration; E87.5 Hyperkalemia; N28.9 Disorder of kidney and ureter, unspecified; I10 Essential (primary) hypertension; E11.9 Type 2 diabetes mellitus without complications; I48.91 Unspecified atrial fibrillation; F32.9 Major depressive disorder, single episode, unspecified; K21.9 Gastro-esophageal reflux disease without esophagitis; Z86.73 Personal history of transient ischemic attack (TIA), and cerebral infarction without residual deficits; Z88.6 Allergy status to analgesic agent; Z88.1 Allergy status to other antibiotic agents; Z88.8 Allergy status to other drugs, medicaments and biological substances; Z79.84 Long term (current) use of oral hypoglycemic drugs; Z79.01 Long term (current) use of anticoagulants; Z87.891 Personal history of nicotine dependence; Z82.49 Family history of ischemic heart disease and other diseases of the circulatory system
CPT/HCPCS: 36415; 71045; 80053; 82274; 83690; 85025; 85610; 85730

== ENCOUNTER 2022-02-13 00:32 | Emergency (ER) | payer MEDICARE, OTHER ==
[~2022-02-13] VITALS: Ht 167.7 cm; Wt 70.3 kg
[~2022-02-13 00:32] MED LIST changes: -LISI-556 PO; +LISI5TAB20 PO; +MONT-40 PO; -MONT10TA26 PO; -WARF1TAB82 PO; +WRF1T PO
--- NOTE | 2022-02-13 00:38 | ED General ---
General Stated Complaint: NAUSEA;DIZZINESS History of Present Illness Date Seen by Provider: Feb 13, 2022 Time Seen by Provider: 00:35 Initial Comments 86-year-old male sent in by family for evaluation. 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 Family reports that he was getting a breathing treatment shortly prior to arrival when he became very shaky. He had a little bit of nausea associated with it. His reports they gave him Ativan and the shaking resolved. However they wanted him evaluated for potential another stroke. Upon arrival he is at his baseline with no new deficits. Patient himself has no complaints outside of a chronic headache. Allergies and Home Medications Allergies Coded Allergies: aspirin (Verified Allergy, Severe, 11/22/18) butalbital (Verified Allergy, Severe, 11/22/18) atropine (Verified Allergy, Unknown, 11/22/18) celecoxib (Verified Allergy, Unknown, 11/22/18) diphenoxylate (Verified Allergy, Unknown, 11/22/18) levofloxacin (Verified Allergy, Unknown, 11/22/18) strawberry (Verified Allergy, Unknown, 11/22/18) Uncoded Allergies: BEE STING (Allergy, Severe, 11/22/18) Patient Home Medication List Home Medication List Reviewed: Yes Acetaminophen (Tylenol Extra Strength) 500 Mg Tablet, 1,000 MG PO TID, (Reported) Entered as Reported by: OANH SALDAÑA on 11/22/18 1609 Amoxicillin/Potassium Clav (Augmentin 875-125 Tablet) 1 Each Tablet, 1 EACH PO BID Prescribed by: LUIS SHELLEY on 11/24/18 1120 Ascorbate Calcium (Vitamin C) 500 Mg Tablet, 500 MG PO DAILY, (Reported) Entered as Reported by: OANH SALDAÑA on 11/22/18 1609 Atorvastatin Calcium (Atorvastatin Calcium) 10 Mg Tablet, 5 MG PO HS, (Reported) Entered as Reported by: OANH SALDAÑA on 11/22/18 1549 Cephalexin (Cephalexin) 500 Mg Tablet, 500 MG PO QID Prescribed by: CHARLEY APPIAH on 02/13/22 0151 Cholecalciferol (Vitamin D3) (Vitamin D) 2,000 Unit Capsule, 2,000 UNIT PO DAILY, (Reported) Entered as Reported by: OANH SALDAÑA on 11/22/18 160 Famotidine (Pepcid) 20 Mg Tablet, 20 MG PO BID, (Reported) Entered as Reported by: OANH SALDAÑA on 11/22/18 160 Finasteride (Finasteride) 5 Mg Tablet, 5 MG PO DAILY, (Reported) Entered as Reported by: OANH SALDAÑA on 11/22/18 154 Flaxseed Oil (Flax Seed Oil) 1,000 Mg Capsule, 1,000 MG PO DAILY, (Reported) Entered as Reported by: OANH SALDAÑA on 11/22/18 160 Iron Polysaccharide Complex (Ferrex 150) 150 Mg Capsule, 150 MG PO BID, (Reported) Entered as Reported by: OANH SALDAÑA on 11/22/181608 L.acidoph & Paracasei,B.lactis (Probiotic) 1 Each Capsule, 1 EACH PO TIDWM Prescribed by: LUIS SHELLEY on 11/24/18 1120 Lisinopril (Lisinopril) 5 Mg Tablet, 5 MG PO DAILY, (Reported) Entered as Reported by: OANH SALDAÑA on 11/22/18 154 Metformin HCl (Metformin HCl) 850 Mg Tablet, 850 MG PO BID, (Reported) Entered as Reported by: OANH SALDAÑA on 11/22/181548 Montelukast Sodium (Montelukast Sodium) 10 Mg Tablet, 10 MG PO HS, (Reported) Entered as Reported by: OANH SALADÑA on 11/22/18 154 Multivitamin (Daily Multiple Vitamin) 1 Each Tablet, 1 TAB PO DAILY, (Reported) Entered as Reported by: OANH SALDAÑA on 11/22/181608 Niacinamide (Niacin) 500 Mg Tablet, 500 MG PO DAILY, (Reported) Entered as Reported by: OANH SALDAÑA on 11/22/181608 Omeprazole (Omeprazole) 20 Mg Capsule.dr, 20 MG PO DAILY, (Reported) Entered as Reported by: OANH SALDAÑA on 11/22/18 154 Sitagliptin Phosphate (Januvia) 100 Mg Tablet, 100 MG PO DAILY, (Reported) Entered as Reported by: OANH SALDAÑA on 11/22/181548 Tamsulosin HCl (Tamsulosin HCl) 0.4 Mg Cap.er.24h, 0.4 MG PO 1730, (Reported) Entered as Reported by: OANH SALDAÑA on 11/22/181548 Trimethoprim (Trimethoprim) 100 Mg Tablet, 100 MG PO HS, (Reported) Entered as Reported by: OANH SALDAÑA on 11/22/181548 Warfarin Sodium (Warfarin Sodium) 1 Mg Tablet, 2 MG PO Q48H, (Reported) Entered as Reported by: OANH SALDAÑA on 11/22/181548 Warfarin Sodium (Warfarin Sodium) 3 Mg Tablet, 1.5 MG PO Q48H, (Reported) Entered as Reported by: OANH SALDAÑA on 11/22/181548 Review of Systems Review of Systems Constitutional: see HPI EENTM: no symptoms reported Respiratory: no symptoms reported Cardiovascular: no symptoms reported Gastrointestinal: no symptoms reported Genitourinary: no symptoms reported Musculoskeletal: see HPI Skin: no symptoms reported Psychiatric/Neurological: See HPI Physical Exam Vital Signs Vital Signs - First Documented 02/13/22 00:35 Temp 36.2 Pulse 110 Resp 18 B/P (MAP) 172/91 (118) Pulse Ox 97 O2 Delivery Room Air Capillary Refill : Height, Weight, BMI Height: 5'6.00" Weight: 177lbs. 2.0oz. 80.875637nz; 26.00 BMI Method: General Appearance: No Apparent Distress, WD/WN, Other (Patient pleasant) Neck: Supple Respiratory: Lungs Clear, Normal Breath Sounds Cardiovascular: Regular Rate, Rhythm, No Edema Gastrointestinal: Non Tender, Soft Extremity: Normal Capillary Refill Neurologic/Psychiatric: Alert, Oriented x3, Normal Mood/Affect, Other (Patient baseline with complete left-sided flank flaccidity. No new focal deficits.) Progress/Results/Core Measures Suspected Sepsis SIRS Temperature: Pulse: Respiratory Rate: Laboratory Tests 02/13/22 00:43: White Blood Count 11.8H Blood Pressure / Mean: Laboratory Tests 02/13/22 00:43: Creatinine 1.37H, Platelet Count 229, Total Bilirubin 0.2 Results/Orders Lab Results Laboratory Tests Test 02/13/22 00:43 02/13/22 00:45 02/13/22 01:29 Range/Units White Blood Count 11.8 H 4.3-11.0 10^3/uL Red Blood Count 3.13 L 4.30-5.52 10^6/uL Hemoglobin 10.3 L 13.3-17.7 g/dL Hematocrit 32 L 40-54 % Mean Corpuscular Volume 102 H 80-99 fL Mean Corpuscular Hemoglobin 33 25-34 pg Mean Corpuscular Hemoglobin Concent 32 32-36 g/dL Red Cell Distribution Width 13.2 10.0-14.5 % Platelet Count 229 130-400 10^3/uL Mean Platelet Volume 9.9 9.0-12.2 fL Immature Granulocyte % (Auto) 0 % Neutrophils (%) (Auto) 31 L 42-75 % Lymphocytes (%) (Auto) 58 H 12-44 % Monocytes (%) (Auto) 9 0-12 % Eosinophils (%) (Auto) 2 0-10 % Basophils (%) (Auto) 0 0-10 % Neutrophils # (Auto) 3.7 1.8-7.8 10^3/uL Lymphocytes # (Auto) 6.8 H 1.0-4.0 10^3/uL Monocytes # (Auto) 1.0 0.0-1.0 10^3/uL Eosinophils # (Auto) 0.3 0.0-0.3 10^3/uL Basophils # (Auto) 0.0 0.0-0.1 10^3/uL Immature Granulocyte # (Auto) 0.0 0.0-0.1 10^3/uL Sodium Level 130 L 135-145 MMOL/L Potassium Level 5.1 H 3.6-5.0 MMOL/L Chloride Level 96 L 98-107 MMOL/L Carbon Dioxide Level 22 21-32 MMOL/L Anion Gap 12 5-14 MMOL/L Blood Urea Nitrogen 32 H 7-18 MG/DL Creatinine 1.37 H 0.60-1.30 MG/DL Estimat Glomerular Filtration Rate 50 BUN/Creatinine Ratio 23 Glucose Level 189 H 70-105 MG/DL Calcium Level 8.5 8.5-10.1 MG/DL Corrected Calcium 9.5 8.5-10.1 MG/DL Total Bilirubin 0.2 0.1-1.0 MG/DL Aspartate Amino Transf (AST/SGOT) 18 5-34 U/L Alanine Aminotransferase (ALT/SGPT) 8 0-55 U/L Alkaline Phosphatase 80 40-136 U/L Troponin I < 0.30 <0.30 NG/ML C-Reactive Protein 0.87 H <0.50 MG/DL Total Protein 6.5 6.4-8.2 GM/DL Albumin 2.8 L 3.2-4.5 GM/DL Glucometer 181 H 70-110 MG/DL Urine Color YELLOW Urine Clarity CLOUDY Urine pH 5.0 5-9 Urine Specific [place] 1.015 L 1.016-1.022 Urine Protein TRACE H NEGATIVE Urine Glucose (UA) NEGATIVE NEGATIVE Urine Ketones NEGATIVE NEGATIVE Urine Nitrite NEGATIVE NEGATIVE Urine Bilirubin NEGATIVE NEGATIVE Urine Urobilinogen 0.2 < = 1.0 MG/DL Urine Leukocyte Esterase 3+ H NEGATIVE Urine RBC (Auto) 2+ H NEGATIVE Urine RBC /HPF Urine WBC TNTC H /HPF Urine Crystals NONE /LPF Urine Bacteria /HPF Urine Casts NONE /LPF Urine Mucus NEGATIVE /LPF Urine Culture Indicated YES My Orders Orders - CHARLEY APPIAH DO Ct Head Wo (02/13/22 00:38) Cbc With Automated Diff (02/13/22 00:38) Comprehensive Metabolic Panel (02/13/22 00:38) Ua Culture If Indicated (02/13/22 00:38) Crp Fs (02/13/22 00:38) Troponin I Fs (02/13/22 00:38) Ekg Tracing (02/13/22 00:38) Monitor-Rhythm Ecg Trace Only (02/13/22 00:38) Ed Iv/Invasive Line Start (02/13/22 00:41) Ns Iv 500 Ml (Sodium Chloride 0.9%) (02/13/22 00:45) Accucheck Stat ONCE (02/13/22 00:41) Urine Culture (02/13/22 01:29) Medications Given in ED Current Medications Medications Dose Ordered Sig/Mi Route Start Time Stop Time Status Last Admin Dose Admin Sodium Chloride 500 ml @ 0 mls/hr Q0M ONCE IV 02/13/22 00:45 02/13/22 00:46 DC 02/13/22 00:50 999 MLS/HR Vital Signs/I&O 02/13/22 02/13/22 00:35 01:51 Temp 36.2 Pulse 110 112 Resp 18 18 B/P (MAP) 172/91 (118) 164/96 Pulse Ox 97 98 O2 Delivery Room Air Room Air Capillary Refill : Progress Note : Progress Note Patient remained pleasant and at baseline throughout stay with no signs of any strokelike activity or TIA. Patient does have urinalysis consistent with a urinary tract infection. Patient will be be prescribed Keflex which she can start first thing in the morning. Recommend he follow-up with a primary care provider about a week to recheck his urine. Patient stable and discharged home ECG Initial ECG Impression Date: Feb 13, 2022 Initial ECG Impression Time: 00:39 Initial ECG Rhythm: S.Tach, PAC Comment no acute st changes Diagnostic Imaging Diagonstic Imaging: CT Plain Films/CT/US/NM/MRI: head Comments No acute intracranial abnormality Reviewed: Reviewed [place] Study Departure Impression Primary Impression: Acute cystitis with hematuria Disposition: HOME, SELF-CARE Condition: Stable Departure-Patient Inst. Patient Instructions: Urinary Tract Infection, Adult ED Add. Discharge Instructions: Follow-up with your primary care provider in 1 week to recheck your urine or with any other concerns Scripts Cephalexin (Cephalexin) 500 Mg Tablet 500 MG PO QID, #20 TAB 0 Refills Prov: CHARLEY APPIAH DO 02/13/22 CHARLEY APPIAH DO Feb 13, 2022 00:38
[2022-02-13] MEDS ORDERED: NS IV 500 ML 500 ML IV ONE (00:45)
[2022-02-13 00:52] LABS: BASOPHILS % (AUTO) 0 % (0-10); EOSINOPHILS # (AUTO) 0.3 10^3/uL (0.0-0.3); EOSINOPHILS % (AUTO) 2 % (0-10); HEMATOCRIT 32 % (40-54); HEMOGLOBIN 10.3 g/dL (13.3-17.7); LYMPHOCYTES # (AUTO) 6.8 10^3/uL (1.0-4.0); LYMPHOCYTES % (AUTO) 58 % (12-44); MEAN CORPUSCULAR HEMOGLOBIN 33 pg (25-34); MEAN CORPUSCULAR HGB CONC 32 g/dL (32-36); MEAN CORPUSCULAR VOLUME 102 fL (80-99); MEAN PLATELET VOLUME 9.9 fL (9.0-12.2); MONOCYTES % (AUTO) 9 % (0-12); NEUTROPHILS # (AUTO) 3.7 10^3/uL (1.8-7.8); NEUTROPHILS % (AUTO) 31 % (42-75); PLATELET COUNT 229 10^3/uL (130-400); WHITE BLOOD COUNT 11.8 10^3/uL (4.3-11.0)
[2022-02-13 01:12] LABS: ALANINE AMINOTRANSFERASE 8 U/L (0-55); ALBUMIN 2.8 GM/DL (3.2-4.5); ALKALINE PHOSPHATASE 80 U/L (40-136); BILIRUBIN,TOTAL 0.2 MG/DL (0.1-1.0); BUN/CREATININE RATIO 23; CALCIUM 8.5 MG/DL (8.5-10.1); CARBON DIOXIDE 22 MMOL/L (21-32); CHLORIDE 96 MMOL/L (98-107); CREATININE SERUM 1.37 MG/DL (0.60-1.30); GFR ESTIMATED 50; GLUCOSE 189 MG/DL (70-105); POTASSIUM 5.1 MMOL/L (3.6-5.0); SODIUM 130 MMOL/L (135-145); TOTAL PROTEIN 6.5 GM/DL (6.4-8.2)
[2022-02-13 01:43] LABS: BILIRUBIN,URINE NEGATIVE (NEGATIVE); CLARITY,URINE CLOUDY; COLOR,URINE YELLOW; GLUCOSE, URINE (UA) NEGATIVE (NEGATIVE); KETONES,URINE NEGATIVE (NEGATIVE); LEUKOCYTE ESTERASE ,URINE 3+ (NEGATIVE); NITRITE,URINE NEGATIVE (NEGATIVE); PROTEIN,URINE TRACE (NEGATIVE); WBC,URINE TNTC /HPF
[2022-02-13 01:51] VITALS: BP 164/96
[2022-02-13] MEDS ORDERED: CEPH500T PO (01:51)
--- NOTE | 2022-02-13 06:55 | Diagnostic Imaging Report ---
PROCEDURE: CT head without contrast. TECHNIQUE: Multiple contiguous axial images were obtained through the brain without the use of intravenous contrast. Auto Exposure Controls were utilized during the CT exam to meet ALARA standards for radiation dose reduction. INDICATION: History of stroke 10 years ago. Dizziness, nausea. COMPARISON: None FINDINGS: The ventricles and cortical sulci are prominent. There is no midline shift or mass effect. No acute intracranial hemorrhage is seen. There is a focal hypodensity in the right basal ganglia and thalamus, which may be from old infarct. There is calcification in the left cerebellum which may be from chronic insult as well. Areas of decreased attenuation are seen in the subcortical and periventricular white matter. These likely represent chronic microvascular disease. No CT evidence of acute territorial ischemia is seen. The calvarium is intact. The visible paranasal sinuses are clear. There is marked leftward deviation of the anterior nasal septum. There is fluid in the mastoid air cells bilaterally, right greater than left. There is calcific atherosclerosis. IMPRESSION: 1. No acute intracranial hemorrhage. No CT evidence of acute territorial ischemia. 2. Additional chronic findings as described above. No significant changes from the preliminary report. Dictated by: Dictated on workstation # [id number]
== END 2022-02-13 02:20 | disposition home or self-care (01) ==
LOC: EDUNIT# 00:32 → ER FS 00:34
DX: N30.01 Acute cystitis with hematuria (principal)
CPT/HCPCS: 36415; 70450; 80053; 81000; 82947; 84484; 85025; 86141; 87077; 87088; 87186; 93005; 93041

== ENCOUNTER 2022-03-30 19:14 | Emergency (ER) | payer MEDICARE, OTHER ==
[~2022-03-30 19:14] MED LIST changes: +CEPH500T PO
[2022-03-30 19:50] LABS: BASOPHILS % (AUTO) 0 % (0-10); EOSINOPHILS # (AUTO) 0.1 10^3/uL (0.0-0.3); EOSINOPHILS % (AUTO) 2 % (0-10); HEMATOCRIT 28 % (40-54); HEMOGLOBIN 9.5 g/dL (13.3-17.7); LYMPHOCYTES # (AUTO) 2.4 10^3/uL (1.0-4.0); LYMPHOCYTES % (AUTO) 38 % (12-44); MEAN CORPUSCULAR HEMOGLOBIN 33 pg (25-34); MEAN CORPUSCULAR HGB CONC 34 g/dL (32-36); MEAN CORPUSCULAR VOLUME 98 fL (80-99); MEAN PLATELET VOLUME 9.9 fL (9.0-12.2); MONOCYTES # (AUTO) 0.7 10^3/uL (0.0-1.0); MONOCYTES % (AUTO) 11 % (0-12); NEUTROPHILS # (AUTO) 3.1 10^3/uL (1.8-7.8); NEUTROPHILS % (AUTO) 49 % (42-75); PLATELET COUNT 242 10^3/uL (130-400); WHITE BLOOD COUNT 6.3 10^3/uL (4.3-11.0)
[2022-03-30 20:00] LABS: INR 1.8 (0.8-1.4); PROTHROMBIN TIME PATIENT 21.4 SEC (12.2-14.7)
[2022-03-30 20:21] LABS: CLARITY,URINE TURBID; COLOR,URINE YELLOW; GLUCOSE, URINE (UA) NEGATIVE (NEGATIVE); KETONES,URINE NEGATIVE (NEGATIVE); PROTEIN,URINE TRACE (NEGATIVE)
[2022-03-30 20:22] LABS: BACTERIA,URINE LARGE /HPF; BILIRUBIN,URINE NEGATIVE (NEGATIVE); LEUKOCYTE ESTERASE ,URINE 3+ (NEGATIVE); NITRITE,URINE POSITIVE (NEGATIVE); WBC,URINE TNTC /HPF
[2022-03-30 20:28] LABS: CALCIUM 8.7 MG/DL (8.5-10.1); CREATININE SERUM 1.07 MG/DL (0.60-1.30); MAGNESIUM 1.5 MG/DL (1.6-2.4); POTASSIUM 6.1 MMOL/L (3.6-5.0)
[2022-03-30 20:29] LABS: ALBUMIN 3.3 GM/DL (3.2-4.5); BILIRUBIN,TOTAL 0.2 MG/DL (0.1-1.0); TOTAL PROTEIN 6.7 GM/DL (6.4-8.2)
[2022-03-30] MEDS ORDERED: cefTRIAXone 1 GM PRE-MIX 50 ML IV STA (20:44)
[2022-03-30] MEDS ORDERED: MAGNESIUM 1 GM/100 ML IVPB 100 ML IV ONE (20:45)
[2022-03-30] MEDS ORDERED: NS IV 1000 ML 1,000 ML IV SCH (20:45)
--- NOTE | 2022-03-30 21:29 | Diagnostic Imaging Report ---
CLINICAL INDICATION: Patient with malaise and hyponatremia. EXAM: Portable chest x-ray upright view. COMPARISON: Chest x-ray dated 01/12/2020. FINDINGS: Lungs/pleura: There is interval development of mild patchy airspace infiltrates throughout both lungs. There is no pneumothorax. There is no pleural effusion. Mediastinum: Hiatal hernia is again seen. Pulmonary vasculature: Unremarkable. Heart: Unremarkable. Bones/extrathoracic soft tissue: There are degenerative spurs involving the thoracic spine. IMPRESSION: There is interval development of patchy infiltrates throughout both lungs concerning for pneumonia. Dictated by: Dictated on workstation # [id number]
--- NOTE | 2022-03-30 21:47 | ED General ---
General Chief Complaint: General Problems/Pain Stated Complaint: OVERHEATED,NAUSEA Nursing Triage Note: Patient presents per POV drivevn by family arriving into ER in his wheelchair with gait belt noted in place. Pt states he felt "alittle blase' tonight". 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 Pt has no chief c/o. Source of Information: Patient, Family, Old Records Exam Limitations: No Limitations History of Present Illness Date Seen by Provider: March 30, 2022 Time Seen by Provider: 19:20 Initial Comments Mr. Lynn is an 86-year-old gentleman who presents to the emergency room by private vehicle accompanied by his and son with complaints of generally feeling ill this evening. He has a hard time defining his symptoms but states he feels matt. He has had some minor cough but no significant shortness of breath. He denies any significant pain. 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 He denies any vomiting or diarrhea. He is afebrile. He has some tenderness to palpation in the suprapubic region. He does have a history of urinary tract infections. Dr. Sears is his primary care provider. Allergies and Home Medications Allergies Coded Allergies: aspirin (Verified Allergy, Severe, 11/22/18) butalbital (Verified Allergy, Severe, 11/22/18) atropine (Verified Allergy, Unknown, 11/22/18) celecoxib (Verified Allergy, Unknown, 11/22/18) diphenoxylate (Verified Allergy, Unknown, 11/22/18) levofloxacin (Verified Allergy, Unknown, 11/22/18) strawberry (Verified Allergy, Unknown, 11/22/18) Uncoded Allergies: BEE STING (Allergy, Severe, 11/22/18) Patient Home Medication List Home Medication List Reviewed: Yes Acetaminophen (Tylenol Extra Strength) 500 Mg Tablet, 1,000 MG PO TID, (Reported) Entered as Reported by: OANH SALDAÑA on 11/22/181608 Last Action: Last Taken Edited Ascorbate Calcium (Vitamin C) 500 Mg Tablet, 500 MG PO DAILY, (Reported) Entered as Reported by: OANH SALDAÑA on 11/22/181608 Last Action: Last Taken Edited Atorvastatin Calcium (Atorvastatin Calcium) 10 Mg Tablet, 5 MG PO HS, (Reported) Entered as Reported by: OANH SALDAÑA on 11/22/181548 Last Action: Last Taken Edited Cefdinir (Cefdinir) 300 Mg Capsule, 300 MG PO BID Prescribed by: OZIEL POE on 03/30/222217 Cholecalciferol (Vitamin D3) (Vitamin D) 2,000 Unit Capsule, 2,000 UNIT PO DAILY, (Reported) Entered as Reported by: OANH SALDAÑA on 11/22/181608 Last Action: Last Taken Edited Doxycycline Hyclate (Doxycycline Hyclate) 100 Mg Tablet, 100 MG PO BID Prescribed by: OZIEL POE on 03/30/222217 Famotidine (Pepcid) 20 Mg Tablet, 20 MG PO BID, (Reported) Entered as Reported by: OANH SALDAÑA on 11/22/181608 Last Action: Last Taken Edited Finasteride (Finasteride) 5 Mg Tablet, 5 MG PO DAILY, (Reported) Entered as Reported by: OANH SALDAÑA on 11/22/181548 Last Action: Last Taken Edited Flaxseed Oil (Flax Seed Oil) 1,000 Mg Capsule, 1,000 MG PO DAILY, (Reported) Entered as Reported by: OANH SALDAÑA on 11/22/181608 Last Action: Last Taken Edited Iron Polysaccharide Complex (Ferrex 150) 150 Mg Capsule, 150 MG PO BID, (Reported) Entered as Reported by: OANH SALDAÑA on 11/22/181608 Last Action: Last Taken Edited L.acidoph & Paracasei,B.lactis (Probiotic) 1 Each Capsule, 1 EACH PO TIDWM Prescribed by: LUIS SHELLEY on 11/24/18 1120 Last Action: Last Taken Edited Lisinopril (Lisinopril) 5 Mg Tablet, 5 MG PO DAILY, (Reported) Entered as Reported by: OANH SALDAÑA on 11/22/181548 Last Action: Last Taken Edited Magnesium Oxide (Magnesium Oxide) 400 Mg Tablet, 400 MG PO DAILY Prescribed by: OZIEL POE on 03/30/222223 Metformin HCl (Metformin HCl) 850 Mg Tablet, 850 MG PO BID, (Reported) Entered as Reported by: OANH SALDAÑA on 11/22/181548 Last Action: Last Taken Edited Montelukast Sodium (Montelukast Sodium) 10 Mg Tablet, 10 MG PO HS, (Reported) Entered as Reported by: OANH SALDAÑA on 11/22/181548 Last Action: Last Taken Edited Multivitamin (Daily Multiple Vitamin) 1 Each Tablet, 1 TAB PO DAILY, (Reported) Entered as Reported by: OANH SALDAÑA on 11/22/181608 Last Action: Last Taken Edited Niacinamide (Niacin) 500 Mg Tablet, 500 MG PO DAILY, (Reported) Entered as Reported by: OANH SALDAÑA on 11/22/181608 Last Action: Last Taken Edited Omeprazole (Omeprazole) 20 Mg Capsule.dr, 20 MG PO DAILY, (Reported) Entered as Reported by: OANH SALDAÑA on 11/22/181548 Last Action: Last Taken Edited Sitagliptin Phosphate (Januvia) 100 Mg Tablet, 100 MG PO DAILY, (Reported) Entered as Reported by: OANH SALDAAÑ on 11/22/181548 Last Action: Last Taken Edited Tamsulosin HCl (Tamsulosin HCl) 0.4 Mg Cap.er.24h, 0.4 MG PO 1730, (Reported) Entered as Reported by: OANH SALDAÑA on 11/22/181548 Last Action: Last Taken Edited Trimethoprim (Trimethoprim) 100 Mg Tablet, 100 MG PO HS, (Reported) Entered as Reported by: OANH SALDAÑA on 11/22/181548 Last Action: Last Taken Edited Warfarin Sodium (Warfarin Sodium) 1 Mg Tablet, 2 MG PO Q48H, (Reported) Entered as Reported by: OANH SALDAÑA on 11/22/181548 Last Action: Last Taken Edited Warfarin Sodium (Warfarin Sodium) 3 Mg Tablet, 1.5 MG PO Q48H, (Reported) Entered as Reported by: OANH SALDAÑA on 11/22/181548 Last Action: Last Taken Edited Discontinued Medications Amoxicillin/Potassium Clav (Augmentin 875-125 Tablet) 1 Each Tablet, 1 EACH PO BID Discontinued Reason: Referral/FU Appt-Addtl Prescribed by: LUIS SHELLEY on 11/24/18 1120 Last Action: Discontinued Cephalexin (Cephalexin) 500 Mg Tablet, 500 MG PO QID Discontinued Reason: Referral/FU Appt-Addtl Prescribed by: CHARLEY APPIAH on 02/13/22 0151 Last Action: Discontinued Review of Systems Review of Systems Constitutional: see HPI EENTM: no symptoms reported Respiratory: see HPI Cardiovascular: no symptoms reported Gastrointestinal: no symptoms reported Genitourinary: see HPI Musculoskeletal: no symptoms reported Skin: no symptoms reported Psychiatric/Neurological: See HPI Hematologic/Lymphatic: No Symptoms Reported Immunological/Allergic: no symptoms reported Past Ipdkobk-Spipcu-Kjeuzw Hx Patient Social History Tobacco Use?: No Smoking Status: Former Smoker Substance use?: No Alcohol Use?: No Pt feels they are or have been: No Immunizations Up To Date Influenza Vaccine Up-to-Date: No; Not Current First/Initial COVID19 Vaccinat: unvaccinated Seasonal Allergies Seasonal Allergies: Yes Past Medical History Surgery/Hospitalization HX: Essential HTN, DM Type II, CVA with Left hemiparaesis, Hx A Fib, GERD, Depression Surgeries: Yes (HERNIA REPAIR) Vasectomy Respiratory: Yes Pneumonia Currently Using CPAP: No Currently Using BIPAP: No Cardiac: Yes (THROMBOSIS) Atrial Fibrillation, Hypertension Neurological: Yes Stroke Genitourinary: Yes Prostate Problems Gastrointestinal: Yes Gastroesophageal Reflux Musculoskeletal: Yes Arthritis Endocrine: Yes Diabetes, Non-Insulin dep HEENT: No Cancer: No Psychosocial: No Depression Integumentary: No Family Medical History Cardiovascular disease 19 FATHER, Dementia G8 BROTHER G8 SISTER, FH: cancer 19 MOTHER, FH: cancer 19 MOTHER, No Pertinent Family Hx Physical Exam Vital Signs Vital Signs - First Documented 03/30/22 19:20 Temp 36.6 Pulse 104 Resp 20 B/P (MAP) 166/78 (107) Pulse Ox 95 O2 Delivery Room Air Capillary Refill : Less Than 3 Seconds Height, Weight, BMI Height: 5'6.00" Weight: 177lbs. 2.0oz. 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, Other (Left-sided paralysis) Skin: Normal Color, Warm/Dry Progress/Results/Core Measures Suspected Sepsis SIRS Temperature: Pulse: 104 Respiratory Rate: 20 Laboratory Tests 03/30/22 19:30: White Blood Count 6.3 Blood Pressure 166 /78 Mean: 107 Laboratory Tests 03/30/22 19:30: Creatinine 1.07, INR Comment 1.8H, Platelet Count 242, Total Bilirubin 0.2 Results/Orders Lab Results Laboratory Tests Test 03/30/22 19:30 03/30/22 19:48 03/30/22 22:00 Range/Units White Blood Count 6.3 4.3-11.0 10^3/uL Red Blood Count 2.91 L 4.30-5.52 10^6/uL Hemoglobin 9.5 L 13.3-17.7 g/dL Hematocrit 28 L 40-54 % Mean Corpuscular Volume 98 80-99 fL Mean Corpuscular Hemoglobin 33 25-34 pg Mean Corpuscular Hemoglobin Concent 34 32-36 g/dL Red Cell Distribution Width 13.0 10.0-14.5 % Platelet Count 242 130-400 10^3/uL Mean Platelet Volume 9.9 9.0-12.2 fL Immature Granulocyte % (Auto) 0 % Neutrophils (%) (Auto) 49 42-75 % Lymphocytes (%) (Auto) 38 12-44 % Monocytes (%) (Auto) 11 0-12 % Eosinophils (%) (Auto) 2 0-10 % Basophils (%) (Auto) 0 0-10 % Neutrophils # (Auto) 3.1 1.8-7.8 10^3/uL Lymphocytes # (Auto) 2.4 1.0-4.0 10^3/uL Monocytes # (Auto) 0.7 0.0-1.0 10^3/uL Eosinophils # (Auto) 0.1 0.0-0.3 10^3/uL Basophils # (Auto) 0.0 0.0-0.1 10^3/uL Immature Granulocyte # (Auto) 0.0 0.0-0.1 10^3/uL Prothrombin Time 21.4 H 12.2-14.7 SEC INR Comment 1.8 H 0.8-1.4 Sodium Level 128 L 135-145 MMOL/L Potassium Level 6.1 H 3.6-5.0 MMOL/L Chloride Level 100 98-107 MMOL/L Carbon Dioxide Level 19 L 21-32 MMOL/L Anion Gap 9 5-14 MMOL/L Blood Urea Nitrogen 24 H 7-18 MG/DL Creatinine 1.07 0.60-1.30 MG/DL Estimat Glomerular Filtration Rate 68 BUN/Creatinine Ratio 22 Glucose Level 176 H 70-105 MG/DL Calcium Level 8.7 8.5-10.1 MG/DL Corrected Calcium 9.3 8.5-10.1 MG/DL Magnesium Level 1.5 L 1.6-2.4 MG/DL Total Bilirubin 0.2 0.1-1.0 MG/DL Aspartate Amino Transf (AST/SGOT) 18 5-34 U/L Alanine Aminotransferase (ALT/SGPT) 10 0-55 U/L Alkaline Phosphatase 86 40-136 U/L C-Reactive Protein 1.82 H <0.50 MG/DL Total Protein 6.7 6.4-8.2 GM/DL Albumin 3.3 3.2-4.5 GM/DL Urine Color YELLOW Urine Clarity TURBID Urine pH 6.0 5-9 Urine Specific Blanco 1.010 L 1.016-1.022 Urine Protein TRACE H NEGATIVE Urine Glucose (UA) NEGATIVE NEGATIVE Urine Ketones NEGATIVE NEGATIVE Urine Nitrite POSITIVE H NEGATIVE Urine Bilirubin NEGATIVE NEGATIVE Urine Urobilinogen 0.2 < = 1.0 MG/DL Urine Leukocyte Esterase 3+ H NEGATIVE Urine RBC (Auto) 2+ H NEGATIVE Urine RBC 2-5 H /HPF Urine WBC TNTC H /HPF Urine Squamous Epithelial Cells NONE /HPF Urine Crystals NONE /LPF Urine Bacteria LARGE H /HPF Urine Casts NONE /LPF Urine Mucus MODERATE H /LPF Urine Culture Indicated YES SARS-CoV-2 RNA (RT-PCR) Not Detected Not Detecte My Orders Orders - OZIEL CHILEL MD Cbc With Automated Diff (03/30/22 19:34) Comprehensive Metabolic Panel (03/30/22 19:34) Magnesium (03/30/22 19:34) Protime With Inr (03/30/22 19:34) Ua Culture If Indicated (03/30/22 19:34) Crp Fs (03/30/22 19:34) Ed Iv/Invasive Line Start (03/30/22 19:34) Bladder Scan (03/30/22 19:34) Urine Culture (03/30/22 19:48) Ekg Tracing (03/30/22 20:41) Magnesium 1 Gm/100 Ml Ivpb (Magnesium Guzman (03/30/22 20:45) Ns Iv 1000 Ml (Sodium Chloride 0.9%) (03/30/22 20:45) Chest 1 View Ap/Pa Only (03/30/22 20:42) Ceftriaxone 1 Gm Pre-Mix (Rocephin 1 Gm (03/30/22 20:44) Doxycycline Hyclate Tablet (Vibramycin T (03/30/22 22:10) Covid 19 Inhouse Test (03/30/22 22:14) Medications Given in ED Current Medications Medications Dose Ordered Sig/Mi Route Start Time Stop Time Status Last Admin Dose Admin Magnesium Sulfate/ Dextrose 100 ml @ 100 mls/hr ONCE ONCE IV 03/30/22 20:45 03/30/22 21:51 DC 03/30/22 21:19 100 MLS/HR Vital Signs/I&O 03/30/22 03/30/22 19:20 22:29 Temp 36.6 36.4 Pulse 104 95 Resp 20 20 B/P (MAP) 166/78 (107) 158/71 Pulse Ox 95 95 O2 Delivery Room Air Room Air 03/30/22 23:59 Intake Total 1150 ml Output Total 96 ml Balance 1054 ml Capillary Refill : Less Than 3 Seconds Blood Pressure Mean: 107 Progress Note : Progress Note Mr. Lynn was found to have multiple issues including electrolyte abnormalities, urinary tract infection, and suspicion for pneumonia based on chest x-ray. He received a liter of IV normal saline to help treat hyponatremia and hyperkalemia. Urinary tract infection was treated with Rocephin. Pneumonia was treated with Rocephin and doxycycline. Patient and family felt comfortable returning home and caring for him there. COVID and influenza swabs were negative. A gram of magnesium was infused by IV route and further oral magnesium was prescribed. See discharge instructions for further discussion. Patient does have a history of prostate problems and was exhibiting suprapubic tenderness. For this reason a bladder scan was obtained which yielded 97 mL. Catheter was not necessary. ECG Initial ECG Impression Date: March 30, 2022 Initial ECG Impression Time: 21:04 Initial ECG Rate: 92 Initial ECG Rhythm: Normal Sinus Comment Sinus rhythm with no ST elevation or depression. No abnormal intervals. Left axis deviation suggestive of LVH. Diagnostic Imaging Diagonstic Imaging: Xray Plain Films/CT/US/NM/MRI: chest Comments Chest x-ray viewed by me and report reviewed. See report below: NAME: MARIA L LYNN [facility] REC#: [id number] PT STATUS: REG ER : 1935 PHYSICIAN: OZIEL CHILEL MD ADMIT DATE: 03/30/22/ER FS Draft Date of Exam:03/30/22 CHEST 1 VIEW AP/PA ONLY CLINICAL INDICATION: Patient with malaise and hyponatremia. EXAM: Portable chest x-ray upright view. COMPARISON: Chest x-ray dated 01/12/2020. FINDINGS: Lungs/pleura: There is interval development of mild patchy airspace infiltrates throughout both lungs. There is no pneumothorax. There is no pleural effusion. Mediastinum: Hiatal hernia is again seen. Pulmonary vasculature: Unremarkable. Heart: Unremarkable. Bones/extrathoracic soft tissue: There are degenerative spurs involving the thoracic spine. IMPRESSION: There is interval development of patchy infiltrates throughout both lungs concerning for pneumonia. Dictated on workstation # [id number] Dict: 03/30/222125 Trans: 03/30/222128 [facility] [id number] Interpreted by: SARMAD SEGAL MD Departure Impression Primary Impression: Urinary tract infection Qualified Codes: N39.0 - Urinary tract infection, site not specified Additional Impressions: CAP (community acquired pneumonia) Qualified Codes: J18.9 - Pneumonia, unspecified organism Hyponatremia Hyperkalemia Hypomagnesemia Malaise Person under investigation for COVID-19 Disposition: 01 HOME, SELF-CARE Condition: Improved Departure-Patient Inst. Decision time for Depature: 22:15 Referrals: GREGG SEARS MD (PCP/Family) Primary Care Physician Patient Instructions: Community-Acquired Pneumonia in Adults, Urinary Tract In fections in Adults Add. Discharge Instructions: Start your antibiotics tomorrow morning. STOP your potassium supplement as your potassium level in the ER was high. Discussed this with your primary care provider at your follow-up appointment. Drink plenty of water and other clear liquids to stay well-hydrated and to help flush out your bladder infection and high potassium level. Keep your follow-up appointment with Dr. Sears. Call with questions or concerns. Your COVID-19 results should be available by tomorrow morning. If you have not heard from the hospital by midmorning, please call to obtain your result. Return to the ER if you have worsening symptoms despite following these instructions. All discharge instructions reviewed with patient and/or family. Voiced understanding. Scripts Magnesium Oxide (Magnesium Oxide) 400 Mg Tablet 400 MG PO DAILY, #10 TAB Prov: OZIEL CHILEL MD 03/30/22 Cefdinir (Cefdinir) 300 Mg Capsule 300 MG PO BID, #20 CAP Prov: OZIEL CHILEL MD 03/30/22 Doxycycline Hyclate (Doxycycline Hyclate) 100 Mg Tablet 100 MG PO BID, #20 TAB Prov: OZIEL CHILEL MD 03/30/22 Copy Copies To 1: GREGG SEARS MD, JOSHUA T MD March 30, 2022 21:47
[2022-03-30] MEDS ORDERED: DOXYCYCLINE 100 MG (VIBRAMYCIN) TABLET PO STA (22:10)
[2022-03-30] MEDS ORDERED: DOXY100T2 PO (22:18)
[2022-03-30] MEDS ORDERED: CEFD300C3 PO (22:18)
[2022-03-30] MEDS ORDERED: MAGN400T7 PO (22:24)
[2022-03-30 22:29] VITALS: BP 158/71
== END 2022-03-30 22:29 | disposition home or self-care (01) ==
LOC: EDUNIT# 19:14 → ER FS 19:15
DX: J18.9 Pneumonia, unspecified organism (principal); N39.0 Urinary tract infection, site not specified; E87.1 Hypo-osmolality and hyponatremia; E87.5 Hyperkalemia; E83.42 Hypomagnesemia; G83.9 Paralytic syndrome, unspecified; Z86.73 Personal history of transient ischemic attack (TIA), and cerebral infarction without residual deficits; Z87.891 Personal history of nicotine dependence; Z99.89 Dependence on other enabling machines and devices; Z99.3 Dependence on wheelchair; Z20.822 Contact with and (suspected) exposure to COVID-19; Z28.310 Unvaccinated for COVID-19
CPT/HCPCS: 36415; 71045; 80053; 81000; 83735; 85025; 85610; 86141; 87077; 87088; 87186; 87636; 93005

== ENCOUNTER 2022-05-07 15:25 | Emergency (ER) | payer MEDICARE, OTHER ==
[~2022-05-07 15:25] MED LIST changes: +CEFD300C3 PO; +DOXY100T2 PO; +MAGN400T7 PO
[2022-05-07 15:42] LABS: BASOPHILS % (AUTO) 1 % (0-10); EOSINOPHILS # (AUTO) 0.1 10^3/uL (0.0-0.3); EOSINOPHILS % (AUTO) 1 % (0-10); HEMATOCRIT 32 % (40-54); HEMOGLOBIN 10.1 g/dL (13.3-17.7); LYMPHOCYTES # (AUTO) 3.1 10^3/uL (1.0-4.0); LYMPHOCYTES % (AUTO) 51 % (12-44); MEAN CORPUSCULAR HEMOGLOBIN 31 pg (25-34); MEAN CORPUSCULAR HGB CONC 32 g/dL (32-36); MEAN CORPUSCULAR VOLUME 99 fL (80-99); MEAN PLATELET VOLUME 9.6 fL (9.0-12.2); MONOCYTES # (AUTO) 0.5 10^3/uL (0.0-1.0); MONOCYTES % (AUTO) 9 % (0-12); NEUTROPHILS # (AUTO) 2.4 10^3/uL (1.8-7.8); NEUTROPHILS % (AUTO) 38 % (42-75); PLATELET COUNT 212 10^3/uL (130-400); WHITE BLOOD COUNT 6.2 10^3/uL (4.3-11.0)
[2022-05-07 15:52] LABS: INR 2.2 (0.8-1.4); PROTHROMBIN TIME PATIENT 25.2 SEC (12.2-14.7)
--- NOTE | 2022-05-07 15:53 | ED General ---
General Chief Complaint: General Problems/Pain Stated Complaint: FEELING FAINT Nursing Triage Note: Patient has been brought to ER by family. reports that after eating patient was watching TV when he became shakey, felt nauseated, and felt faint. was concerned and brought patient to ER for evaluation. She reports that he is feeling better. Source of Information: Patient, Family Exam Limitations: No Limitations History of Present Illness Date Seen by Provider: May 07, 2022 Time Seen by Provider: 15:28 Initial Comments 86-year-old male with past medical history of previous stroke with residual left-sided weakness, pAfib on Warfarin, HTN, DM coming in due to general shakiness and not feeling well. He had an event just prior to arrival where he felt shaky, lightheaded, and nauseous. Came here for evaluation. Has had similar events within the past several months, this is the third time being seen in the ER for similar presentation. Both times he did have a urinalysis. He is complaining of some suprapubic discomfort. No fever, chest pain, shortness of breath, new weakness or numbness, vomiting, diarrhea, or any other concerns. Have been eating and drinking normally. Allergies and Home Medications Allergies Coded Allergies: aspirin (Verified Allergy, Severe, 11/22/18) butalbital (Verified Allergy, Severe, 11/22/18) atropine (Verified Allergy, Unknown, 11/22/18) celecoxib (Verified Allergy, Unknown, 11/22/18) diphenoxylate (Verified Allergy, Unknown, 11/22/18) levofloxacin (Verified Allergy, Unknown, 11/22/18) strawberry (Verified Allergy, Unknown, 11/22/18) Uncoded Allergies: BEE STING (Allergy, Severe, 11/22/18) Patient Home Medication List Home Medication List Reviewed: Yes Acetaminophen (Tylenol Extra Strength) 500 Mg Tablet, 1,000 MG PO TID, (Reported) Entered as Reported by: OANH SALDAÑA on 11/22/18 1609 Ascorbate Calcium (Vitamin C) 500 Mg Tablet, 500 MG PO DAILY, (Reported) Entered as Reported by: OANH SALDAÑA on 11/22/18 1609 Atorvastatin Calcium (Atorvastatin Calcium) 10 Mg Tablet, 5 MG PO HS, (Reported) Entered as Reported by: OANH SALDAÑA on 11/22/18 1549 Cefdinir (Cefdinir) 300 Mg Capsule, 300 MG PO BID Prescribed by: OZIEL POE on 03/30/222217 Cefdinir (Cefdinir) 300 Mg Capsule, 300 MG PO BID Prescribed by: LALIT BARAJAS on 05/07/22 1620 Cholecalciferol (Vitamin D3) (Vitamin D) 2,000 Unit Capsule, 2,000 UNIT PO DAILY, (Reported) Entered as Reported by: OANH SALDAÑA on 11/22/18 160 Doxycycline Hyclate (Doxycycline Hyclate) 100 Mg Tablet, 100 MG PO BID Prescribed by: OZIEL POE on 03/30/222217 Famotidine (Pepcid) 20 Mg Tablet, 20 MG PO BID, (Reported) Entered as Reported by: OANH SALDAÑA on 11/22/18 160 Finasteride (Finasteride) 5 Mg Tablet, 5 MG PO DAILY, (Reported) Entered as Reported by: OANH SALDAÑA on 11/22/18 154 Flaxseed Oil (Flax Seed Oil) 1,000 Mg Capsule, 1,000 MG PO DAILY, (Reported) Entered as Reported by: OANH SALDAÑA on 11/22/18 160 Iron Polysaccharide Complex (Ferrex 150) 150 Mg Capsule, 150 MG PO BID, (Reported) Entered as Reported by: OANH SALDAÑA on 11/22/18 160 L.acidoph & Paracasei,B.lactis (Probiotic) 1 Each Capsule, 1 EACH PO TIDWM Prescribed by: LUIS SHELLEY on 11/24/18 1120 Lisinopril (Lisinopril) 5 Mg Tablet, 5 MG PO DAILY, (Reported) Entered as Reported by: OANH SALDAAÑ on 11/22/18 154 Magnesium Oxide (Magnesium Oxide) 400 Mg Tablet, 400 MG PO DAILY Prescribed by: OZIEL POE on 03/30/222223 Metformin HCl (Metformin HCl) 850 Mg Tablet, 850 MG PO BID, (Reported) Entered as Reported by: OANH SALDAÑA on 11/22/18 154 Montelukast Sodium (Montelukast Sodium) 10 Mg Tablet, 10 MG PO HS, (Reported) Entered as Reported by: OANH SALDAÑA on 1/3/1548 Multivitamin (Daily Multiple Vitamin) 1 Each Tablet, 1 TAB PO DAILY, (Reported) Entered as Reported by: OANH SALDAÑA on 11/22/181608 Niacinamide (Niacin) 500 Mg Tablet, 500 MG PO DAILY, (Reported) Entered as Reported by: OANH SALDAÑA on 11/22/181608 Omeprazole (Omeprazole) 20 Mg Capsule.dr, 20 MG PO DAILY, (Reported) Entered as Reported by: OANH SALDAÑA on 11/22/181548 Sitagliptin Phosphate (Januvia) 100 Mg Tablet, 100 MG PO DAILY, (Reported) Entered as Reported by: OANH SALDAÑA on 11/22/181548 Tamsulosin HCl (Tamsulosin HCl) 0.4 Mg Cap.er.24h, 0.4 MG PO 1730, (Reported) Entered as Reported by: OANH SALDAÑA on 11/22/181548 Trimethoprim (Trimethoprim) 100 Mg Tablet, 100 MG PO HS, (Reported) Entered as Reported by: OANH SALDAÑA on 11/22/181548 Warfarin Sodium (Warfarin Sodium) 1 Mg Tablet, 2 MG PO Q48H, (Reported) Entered as Reported by: OANH SALDAÑA on 11/22/181548 Warfarin Sodium (Warfarin Sodium) 3 Mg Tablet, 1.5 MG PO Q48H, (Reported) Entered as Reported by: OANH SALDAÑA on 11/22/181548 Review of Systems Review of Systems Constitutional: No fever EENTM: No blurred vision Respiratory: No cough Cardiovascular: No chest pain Gastrointestinal: nausea Genitourinary: no symptoms reported Musculoskeletal: no symptoms reported Skin: no symptoms reported Psychiatric/Neurological: See HPI Hematologic/Lymphatic: No Symptoms Reported Immunological/Allergic: no symptoms reported All Other Systems Reviewed Negative Unless Noted: Yes Past Eelvbfw-Luzfyy-Diyqao Hx Patient Social History Tobacco Use?: Yes Tobacco type used: Cigarettes Smoking Status: Former Smoker Use of E-Cig and/or Vaping dev: No Substance use?: No Alcohol Use?: No Pt feels they are or have been: No Immunizations Up To Date First/Initial COVID19 Vaccinat: unvaccinated Second COVID19 Vaccination Gregorio: unvaccinated Third COVID19 Vaccination Date: unvaccinated Seasonal Allergies Seasonal Allergies: Yes Past Medical History Surgery/Hospitalization HX: Essential HTN, DM Type II, CVA with Left hemiparesis, Hx A Fib, GERD, Depression Surgeries: Yes (HERNIA REPAIR) Vasectomy Respiratory: Yes Pneumonia Currently Using CPAP: No Currently Using BIPAP: No Cardiac: Yes (THROMBOSIS) Atrial Fibrillation, Hypertension Neurological: Yes Stroke Genitourinary: Yes Prostate Problems Gastrointestinal: Yes Gastroesophageal Reflux Musculoskeletal: Yes Arthritis Endocrine: Yes Diabetes, Non-Insulin dep HEENT: No Cancer: No Psychosocial: No Depression Integumentary: No Family Medical History Cardiovascular disease 19 FATHER, Dementia G8 BROTHER G8 SISTER, FH: cancer 19 MOTHER, FH: cancer 19 MOTHER, No Pertinent Family Hx Physical Exam Vital Signs Vital Signs - First Documented 05/07/22 15:46 Temp 36.5 Pulse 100 Resp 20 B/P (MAP) 173/75 (107) Pulse Ox 96 O2 Delivery Room Air Capillary Refill : Height, Weight, BMI Height: 5'6.00" Weight: 177lbs. 2.0oz. [id number]; BMI Method: General Appearance: No Apparent Distress, WD/WN Eyes: Bilateral Eye Normal Inspection HEENT: PERRL/EOMI, Normal ENT Inspection, Pharynx Normal Neck: Full Range of Motion, Normal Inspection, Non Tender, Supple Respiratory: Chest Non Tender, Lungs Clear, Normal Breath Sounds, No Accessory Muscle Use, No Respiratory Distress Cardiovascular: Regular Rate, Rhythm, No Edema, Normal Peripheral Pulses Gastrointestinal: Normal Bowel Sounds, Soft; No Distended, No Guarding; Tenderness (mild suprapubic tenderness) Back: Normal Inspection, No CVA Tenderness Extremity: Normal Capillary Refill, Normal Inspection, Normal Range of Motion, Non Tender, No Calf Tenderness, No Pedal Edema Neurologic/Psychiatric: Alert, Oriented x3, Normal 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, 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 Norm as Tested, Other (L side weak at baseline) Skin: Normal Color, Warm/Dry Lymphatic: No Adenopathy Progress/Results/Core Measures Suspected Sepsis SIRS Temperature: Pulse: 100 Respiratory Rate: 20 Laboratory Tests 05/07/22 15:40: White Blood Count 6.2 Blood Pressure 173 /75 Mean: 107 Laboratory Tests 05/07/22 15:40: Creatinine 1.18, INR Comment 2.2H, Platelet Count 212, Total Bilirubin 0.2 Results/Orders Lab Results Laboratory Tests Test 05/07/22 15:26 05/07/22 15:40 Range/Units Urine Color YELLOW Urine Clarity CLEAR Urine pH 6.0 5-9 Urine Specific [place] 1.010 L 1.016-1.022 Urine Protein TRACE H NEGATIVE Urine Glucose (UA) 3+ H NEGATIVE Urine Ketones NEGATIVE NEGATIVE Urine Nitrite NEGATIVE NEGATIVE Urine Bilirubin NEGATIVE NEGATIVE Urine Urobilinogen 0.2 < = 1.0 MG/DL Urine Leukocyte Esterase NEGATIVE NEGATIVE Urine RBC (Auto) 1+ H NEGATIVE Urine RBC 2-5 H /HPF Urine WBC 10-25 H /HPF Urine Squamous Epithelial Cells 0-2 /HPF Urine Crystals NONE /LPF Urine Bacteria TRACE /HPF Urine Casts NONE /LPF Urine Mucus NEGATIVE /LPF Urine Culture Indicated YES White Blood Count 6.2 4.3-11.0 10^3/uL Red Blood Count 3.23 L 4.30-5.52 10^6/uL Hemoglobin 10.1 L 13.3-17.7 g/dL Hematocrit 32 L 40-54 % Mean Corpuscular Volume 99 80-99 fL Mean Corpuscular Hemoglobin 31 25-34 pg Mean Corpuscular Hemoglobin Concent 32 32-36 g/dL Red Cell Distribution Width 13.3 10.0-14.5 % Platelet Count 212 130-400 10^3/uL Mean Platelet Volume 9.6 9.0-12.2 fL Immature Granulocyte % (Auto) 0 % Neutrophils (%) (Auto) 38 L 42-75 % Lymphocytes (%) (Auto) 51 H 12-44 % Monocytes (%) (Auto) 9 0-12 % Eosinophils (%) (Auto) 1 0-10 % Basophils (%) (Auto) 1 0-10 % Neutrophils # (Auto) 2.4 1.8-7.8 10^3/uL Lymphocytes # (Auto) 3.1 1.0-4.0 10^3/uL Monocytes # (Auto) 0.5 0.0-1.0 10^3/uL Eosinophils # (Auto) 0.1 0.0-0.3 10^3/uL Basophils # (Auto) 0.0 0.0-0.1 10^3/uL Immature Granulocyte # (Auto) 0.0 0.0-0.1 10^3/uL Prothrombin Time 25.2 H 12.2-14.7 SEC INR Comment 2.2 H 0.8-1.4 Sodium Level 132 L 135-145 MMOL/L Potassium Level 5.4 H 3.6-5.0 MMOL/L Chloride Level 101 98-107 MMOL/L Carbon Dioxide Level 20 L 21-32 MMOL/L Anion Gap 11 5-14 MMOL/L Blood Urea Nitrogen 21 H 7-18 MG/DL Creatinine 1.18 0.60-1.30 MG/DL Estimat Glomerular Filtration Rate 60 BUN/Creatinine Ratio 18 Glucose Level 304 H 70-105 MG/DL Calcium Level 9.0 8.5-10.1 MG/DL Corrected Calcium 9.3 8.5-10.1 MG/DL Magnesium Level 1.7 1.6-2.4 MG/DL Total Bilirubin 0.2 0.1-1.0 MG/DL Aspartate Amino Transf (AST/SGOT) 16 5-34 U/L Alanine Aminotransferase (ALT/SGPT) 10 0-55 U/L Alkaline Phosphatase 85 40-136 U/L Troponin I < 0.30 <0.30 NG/ML Total Protein 7.3 6.4-8.2 GM/DL Albumin 3.6 3.2-4.5 GM/DL My Orders Orders - LALIT BARAJAS MD Cbc With Automated Diff (05/07/22 15:31) Comprehensive Metabolic Panel (05/07/22 15:31) Magnesium (05/07/22 15:31) Protime With Inr (05/07/22 15:31) Ua Culture If Indicated (05/07/22 15:31) Ed Iv/Invasive Line Start (05/07/22 15:31) Ekg Tracing (05/07/22 15:31) Urine Culture (05/07/22 15:26) Ceftriaxone 1 Gm Pre-Mix (Rocephin 1 Gm (05/07/22 16:15) Ns Iv 500 Ml (Sodium Chloride 0.9%) (05/07/22 16:07) Insulin (Regular) Human (Novolin R (Per (05/07/22 16:07) Troponin I Fs (05/07/22 16:21) Medications Given in ED Current Medications Medications Dose Ordered Sig/Mi Route Start Time Stop Time Status Last Admin Dose Admin Ceftriaxone Sodium/Dextrose 50 ml @ 100 mls/hr ONCE ONCE IV 05/07/22 16:15 05/07/22 16:44 DC 05/07/22 16:22 100 MLS/HR Vital Signs/I&O 05/07/22 05/07/22 15:46 16:42 Temp 36.5 36.5 Pulse 100 100 Resp 20 20 B/P (MAP) 173/75 (107) 173/75 Pulse Ox 96 96 O2 Delivery Room Air Room Air Capillary Refill : Blood Pressure Mean: 107 Progress Note : Progress Note 86-year-old male with above history coming in after feeling shaky and just not right. ABCs were intact and vitals were stable on presentation. Physical exam shows that he is at his mental and physical baseline. EKG appears similar to multiple prior EKGs in the past several months. An IV was placed and basic labs obtained, sodium 132 improved from prior, potassium slightly elevated but also improved from prior in the 5 range, INR 2.2 which is therapeutic for him, normal creatinine. Urinalysis with bacteria and blood. He does have some urinary symptoms such as frequency and he has some suprapubic tenderness so we will treat him. Prior history shows that he is grown out Klebsiella which is sensitive to cephalosporins. We will give him a dose of ceftriaxone here followed by cefdinir. I am unclear the exact cause of the shakiness earlier. When he was feeling that way, his gave him a bunch of orange juice, and here his glucose is around 300. It is possible he was having a low blood sugar that she treated prior to arrival. Most importantly, he is back to his baseline and I believe stable for discharge with outpatient follow-up. He was sent home with strict return precautions. ECG Initial ECG Impression Date: May 07, 2022 Initial ECG Impression Time: 15:42 Initial ECG Rate: 98 Initial ECG Rhythm: Normal Sinus Comment Narrow QRS, left axis deviation, signs of LVH, no significant ST changes, T wave inversion in lead III and aVF, appears similar to prior EKG Departure Impression Primary Impression: Acute cystitis with hematuria Additional Impressions: Shakiness Diabetes Qualified Codes: E11.65 - Type 2 diabetes mellitus with hyperglycemia Disposition: 01 HOME, SELF-CARE Condition: Improved Departure-Patient Inst. Decision time for Depature: 16:45 Referrals: GREGG DOYLE MD (PCP/Family) Primary Care Physician Patient Instructions: Urinary Tract Infection, Adult ED Add. Discharge Instructions: I am unclear the exact cause of your symptoms, it is possible you had a low blood sugar that was self treated with the orange juice. If you feel this way again I would immediately take your blood sugar. Follow-up with your regular doctor especially if symptoms are not improving or come back. You will be on an antibiotic for the bacteria in your urine. Your first dose will be due tomorrow since you already received an IV antibiotic in the ER. Scripts Cefdinir (Cefdinir) 300 Mg Capsule 300 MG PO BID for 5 Days, #10 CAP 0 Refills Prov: LALIT BARAJAS MD 05/07/22 LALTI BARAJAS MD May 07, 2022 15:53
[2022-05-07 16:00] LABS: BILIRUBIN,URINE NEGATIVE (NEGATIVE); CLARITY,URINE CLEAR; COLOR,URINE YELLOW; GLUCOSE, URINE (UA) 3+ (NEGATIVE); KETONES,URINE NEGATIVE (NEGATIVE); LEUKOCYTE ESTERASE ,URINE NEGATIVE (NEGATIVE); NITRITE,URINE NEGATIVE (NEGATIVE); PROTEIN,URINE TRACE (NEGATIVE)
[2022-05-07 16:03] LABS: CREATININE SERUM 1.18 MG/DL (0.60-1.30); POTASSIUM 5.4 MMOL/L (3.6-5.0)
[2022-05-07 16:04] LABS: ALBUMIN 3.6 GM/DL (3.2-4.5); BILIRUBIN,TOTAL 0.2 MG/DL (0.1-1.0); TOTAL PROTEIN 7.3 GM/DL (6.4-8.2)
[2022-05-07 16:05] LABS: BACTERIA,URINE TRACE /HPF; SQUAMOUS EPITHELIAL CELL,UR 0-2 /HPF
[2022-05-07] MEDS ORDERED: inSUlin (REGULAR) HUMAN 1 UNIT/0.01 ML (CHARGE PER UNIT) SC STA (16:07)
[2022-05-07] MEDS ORDERED: NS IV 500 ML 500 ML IV STA (16:07)
[2022-05-07 16:11] LABS: MAGNESIUM 1.7 MG/DL (1.6-2.4)
[2022-05-07] MEDS ORDERED: cefTRIAXone 1 GM PRE-MIX 50 ML IV ONE (16:15)
[2022-05-07] MEDS ORDERED: CEFD300C3 PO ×2 (16:20→16:45)
[2022-05-07 16:42] VITALS: BP 173/75
== END 2022-05-07 16:50 | disposition home or self-care (01) ==
LOC: EDUNIT# 15:25 → ER FS 15:26
DX: E11.65 Type 2 diabetes mellitus with hyperglycemia (principal); N30.01 Acute cystitis with hematuria; R25.9 Unspecified abnormal involuntary movements; E87.5 Hyperkalemia; Z28.310 Unvaccinated for COVID-19; Z87.891 Personal history of nicotine dependence
CPT/HCPCS: 36415; 80053; 81000; 83735; 84484; 85025; 85610; 87088; 93005

== ENCOUNTER 2022-05-21 13:13 | Inpatient (IN) | payer MEDICARE, OTHER ==
[~2022-05-21] VITALS: Ht 167.7 cm; Wt 67.8 kg
[2022-05-21] MEDS ORDERED: dilTIAZem DRIP PRE-MIX 125 ML IV STA (13:26)
[2022-05-21 13:30] LABS: BASOPHILS # (AUTO) 0.1 10^3/uL (0.0-0.1); BASOPHILS % (AUTO) 0 % (0-10); EOSINOPHILS # (AUTO) 0.3 10^3/uL (0.0-0.3); EOSINOPHILS % (AUTO) 2 % (0-10); HEMATOCRIT 33 % (40-54); HEMOGLOBIN 10.2 g/dL (13.3-17.7); LYMPHOCYTES # (AUTO) 6.8 10^3/uL (1.0-4.0); LYMPHOCYTES % (AUTO) 56 % (12-44); MEAN CORPUSCULAR HEMOGLOBIN 31 pg (25-34); MEAN CORPUSCULAR HGB CONC 31 g/dL (32-36); MEAN CORPUSCULAR VOLUME 99 fL (80-99); MONOCYTES # (AUTO) 0.9 10^3/uL (0.0-1.0); MONOCYTES % (AUTO) 8 % (0-12); NEUTROPHILS # (AUTO) 4.2 10^3/uL (1.8-7.8); NEUTROPHILS % (AUTO) 34 % (42-75); PLATELET COUNT 291 10^3/uL (130-400); WHITE BLOOD COUNT 12.2 10^3/uL (4.3-11.0)
[2022-05-21] MEDS ORDERED: NS IV 1000 ML 1,000 ML IV SCH (13:30)
[2022-05-21] MEDS ORDERED: CEFEPIME INJECTION 1,000 MG in NS (IVPB) 50 ML IV ONE (13:30)
--- NOTE | 2022-05-21 13:35 | ED General ---
General Chief Complaint: Respiratory Problems Stated Complaint: SOB Source of Information: Patient, Caregiver, EMS Exam Limitations: No Limitations History of Present Illness Date Seen by Provider: May 21, 2022 Time Seen by Provider: 13:15 Initial Comments 86-year-old male with past medical history of previous stroke with residual left -sided weakness, pAfib on Warfarin, HTN, DM coming in due to shortness of breath. The patient saw his PCP recently was started on antibiotics. Has been worsening and so they called EMS. On their arrival he was satting 93% on room air so they placed him on oxygen. They gave him a DuoNeb treatment as well as 125 mg of IV Solu-Medrol. The patient is essentially nonverbal since having a stroke, and his does most of the talking for him. Has not had any recent fever, vomiting, diarrhea, rash, chest pain, new weakness or numbness, or any other concerns. Allergies and Home Medications Allergies Coded Allergies: aspirin (Verified Allergy, Severe, 11/22/18) butalbital (Verified Allergy, Severe, 11/22/18) atropine (Verified Allergy, Unknown, 11/22/18) celecoxib (Verified Allergy, Unknown, 11/22/18) diphenoxylate (Verified Allergy, Unknown, 11/22/18) levofloxacin (Verified Allergy, Unknown, 11/22/18) strawberry (Verified Allergy, Unknown, 11/22/18) Uncoded Allergies: BEE STING (Allergy, Severe, 11/22/18) Patient Home Medication List Home Medication List Reviewed: Yes Acetaminophen (Tylenol Extra Strength) 500 Mg Tablet, 1,000 MG PO TID, (Reported) Entered as Reported by: OANH SALDAÑA on 11/22/18 1609 Ascorbate Calcium (Vitamin C) 500 Mg Tablet, 500 MG PO DAILY, (Reported) Entered as Reported by: OANH SALDAÑA on 11/22/18 1609 Atorvastatin Calcium (Atorvastatin Calcium) 10 Mg Tablet, 5 MG PO HS, (Reported) Entered as Reported by: OANH SALDAÑA on 11/22/18 1549 Cefdinir (Cefdinir) 300 Mg Capsule, 300 MG PO BID Prescribed by: OZIEL POE on 03/30/22 2218 Cefdinir (Cefdinir) 300 Mg Capsule, 300 MG PO BID Prescribed by: LLAIT BARAJAS on 05/07/22 1645 Cholecalciferol (Vitamin D3) (Vitamin D) 2,000 Unit Capsule, 2,000 UNIT PO DAILY, (Reported) Entered as Reported by: OANH SALDAÑA on 11/22/18 160 Doxycycline Hyclate (Doxycycline Hyclate) 100 Mg Tablet, 100 MG PO BID Prescribed by: OZIEL POE on 03/30/22 2218 Famotidine (Pepcid) 20 Mg Tablet, 20 MG PO BID, (Reported) Entered as Reported by: OANH SALDAÑA on 11/22/18 160 Finasteride (Finasteride) 5 Mg Tablet, 5 MG PO DAILY, (Reported) Entered as Reported by: OANH SALDAÑA on 11/22/18 154 Flaxseed Oil (Flax Seed Oil) 1,000 Mg Capsule, 1,000 MG PO DAILY, (Reported) Entered as Reported by: OANH SALDAÑA on 11/22/18 160 Iron Polysaccharide Complex (Ferrex 150) 150 Mg Capsule, 150 MG PO BID, (Reported) Entered as Reported by: OANH SALDAÑA on 11/22/18 160 L.acidoph & Paracasei,B.lactis (Probiotic) 1 Each Capsule, 1 EACH PO TIDWM Prescribed by: LUIS SHELLEY on 11/24/18 1120 Lisinopril (Lisinopril) 5 Mg Tablet, 5 MG PO DAILY, (Reported) Entered as Reported by: OANH SALDAÑA on 11/22/18 154 Magnesium Oxide (Magnesium Oxide) 400 Mg Tablet, 400 MG PO DAILY Prescribed by: OZIEL POE on 03/30/22 2224 Metformin HCl (Metformin HCl) 850 Mg Tablet, 850 MG PO BID, (Reported) Entered as Reported by: OANH SALDAÑA on 11/22/18 154 Montelukast Sodium (Montelukast Sodium) 10 Mg Tablet, 10 MG PO HS, (Reported) Entered as Reported by: OANH SALDAÑA on 11/22/18 154 Multivitamin (Daily Multiple Vitamin) 1 Each Tablet, 1 TAB PO DAILY, (Reported) Entered as Reported by: OANH SALDAÑA on 11/22/18 160 Niacinamide (Niacin) 500 Mg Tablet, 500 MG PO DAILY, (Reported) Entered as Reported by: OANH SALDAÑA on 11/22/18 160 Omeprazole (Omeprazole) 20 Mg Capsule.dr, 20 MG PO DAILY, (Reported) Entered as Reported by: OANH SALDAÑA on 11/22/18 154 Sitagliptin Phosphate (Januvia) 100 Mg Tablet, 100 MG PO DAILY, (Reported) Entered as Reported by: OANH SALDAÑA on 11/22/181548 Tamsulosin HCl (Tamsulosin HCl) 0.4 Mg Cap.er.24h, 0.4 MG PO 1730, (Reported) Entered as Reported by: OANH SALDAÑA on 11/22/18 154 Trimethoprim (Trimethoprim) 100 Mg Tablet, 100 MG PO HS, (Reported) Entered as Reported by: OANH SALDAÑA on 11/22/181548 Warfarin Sodium (Warfarin Sodium) 1 Mg Tablet, 2 MG PO Q48H, (Reported) Entered as Reported by: OANH SALDAÑA on 11/22/181548 Warfarin Sodium (Warfarin Sodium) 3 Mg Tablet, 1.5 MG PO Q48H, (Reported) Entered as Reported by: OANH SALDAÑA on 11/22/181548 Review of Systems Review of Systems Constitutional: No fever Respiratory: cough, short of breath Cardiovascular: other (afib) Gastrointestinal: no symptoms reported Genitourinary: no symptoms reported Musculoskeletal: no symptoms reported Skin: no symptoms reported Psychiatric/Neurological: No Symptoms Reported Hematologic/Lymphatic: No Symptoms Reported Immunological/Allergic: no symptoms reported All Other Systems Reviewed Negative Unless Noted: Yes Past Xtagdti-[place]-Ypynrr Hx Patient Social History Tobacco Use?: No Immunizations Up To Date First/Initial COVID19 Vaccinat: unvaccinated Second COVID19 Vaccination Gregorio: unvaccinated Third COVID19 Vaccination Date: unvaccinated Seasonal Allergies Seasonal Allergies: Yes Past Medical History Surgery/Hospitalization HX: Essential HTN, DM Type II, CVA with Left hemiparesis, Hx A Fib, GERD, Depression Surgeries: Yes (HERNIA REPAIR) Vasectomy Respiratory: Yes Pneumonia Currently Using CPAP: No Currently Using BIPAP: No Cardiac: Yes (THROMBOSIS) Atrial Fibrillation, Hypertension Neurological: Yes Stroke Genitourinary: Yes Prostate Problems Gastrointestinal: Yes Gastroesophageal Reflux Musculoskeletal: Yes Arthritis Endocrine: Yes Diabetes, Non-Insulin dep HEENT: No Cancer: No Psychosocial: No Depression Integumentary: No Family Medical History Cardiovascular disease 19 FATHER, Dementia G8 BROTHER G8 SISTER, FH: cancer 19 MOTHER, FH: cancer 19 MOTHER, No Pertinent Family Hx Physical Exam Vital Signs Vital Signs - First Documented 05/21/22 13:20 Temp 36.2 Pulse 149 Resp 19 B/P (MAP) 158/88 (111) Pulse Ox 98 O2 Delivery Nasal Cannula O2 Flow Rate 2.00 Capillary Refill : Height, Weight, BMI Height: 5'6.00" Weight: 177lbs. 2.0oz. 80.274722gj; BMI Method: General Appearance: No Apparent Distress, Chronically ill Eyes: Bilateral Eye Normal Inspection HEENT: PERRL/EOMI, Normal ENT Inspection, Pharynx Normal Neck: Full Range of Motion, Normal Inspection, Non Tender, Supple Respiratory: Chest Non Tender, Lungs Clear, Normal Breath Sounds, No Accessory Muscle Use, No Respiratory Distress Cardiovascular: Irregularly Irregular, Tachycardia, Other (lower extremity edema) Gastrointestinal: Normal Bowel Sounds, Non Tender, Soft; No Distended, No Guarding Back: Normal Inspection, No CVA Tenderness, No Vertebral Tenderness Extremity: Normal Capillary Refill, Normal Inspection, Normal Range of Motion, Non Tender, No Calf Tenderness, No Pedal Edema Neurologic/Psychiatric: Alert, Normal Mood/Affect, Other (residual left sided weakness) Skin: Normal Color, Warm/Dry Lymphatic: No Adenopathy Focused Exam Lactate Level 05/21/22 13:24: Lactic Acid Level 1.18 Lactic Acid Level Laboratory Tests Test 05/21/22 13:24 Lactic Acid Level 1.18 MMOL/L (0.50-2.00) Progress/Results/Core Measures Suspected Sepsis SIRS Temperature: Pulse: Respiratory Rate: Laboratory Tests 05/21/22 13:24: White Blood Count 12.2H Blood Pressure / Mean: 05/21/22 13:24: Lactic Acid Level 1.18 Laboratory Tests 05/21/22 13:24: Creatinine 1.29, INR Comment 2.4H, Platelet Count 291, Total Bilirubin 0.3 Results/Orders Lab Results Laboratory Tests Test 05/21/22 13:24 05/21/22 13:30 Range/Units White Blood Count 12.2 H 4.3-11.0 10^3/uL Red Blood Count 3.31 L 4.30-5.52 10^6/uL Hemoglobin 10.2 L 13.3-17.7 g/dL Hematocrit 33 L 40-54 % Mean Corpuscular Volume 99 80-99 fL Mean Corpuscular Hemoglobin 31 25-34 pg Mean Corpuscular Hemoglobin Concent 31 L 32-36 g/dL Red Cell Distribution Width 13.2 10.0-14.5 % Platelet Count 291 130-400 10^3/uL Mean Platelet Volume 10.0 9.0-12.2 fL Immature Granulocyte % (Auto) 0 % Neutrophils (%) (Auto) 34 L 42-75 % Lymphocytes (%) (Auto) 56 H 12-44 % Monocytes (%) (Auto) 8 0-12 % Eosinophils (%) (Auto) 2 0-10 % Basophils (%) (Auto) 0 0-10 % Neutrophils # (Auto) 4.2 1.8-7.8 10^3/uL Lymphocytes # (Auto) 6.8 H 1.0-4.0 10^3/uL Monocytes # (Auto) 0.9 0.0-1.0 10^3/uL Eosinophils # (Auto) 0.3 0.0-0.3 10^3/uL Basophils # (Auto) 0.1 0.0-0.1 10^3/uL Immature Granulocyte # (Auto) 0.0 0.0-0.1 10^3/uL Prothrombin Time 27.0 H 12.2-14.7 SEC INR Comment 2.4 H 0.8-1.4 Activated Partial Thromboplast Time 63 H 24-35 SEC Sodium Level 132 L 135-145 MMOL/L Potassium Level 5.2 H 3.6-5.0 MMOL/L Chloride Level 102 98-107 MMOL/L Carbon Dioxide Level 18 L 21-32 MMOL/L Anion Gap 12 5-14 MMOL/L Blood Urea Nitrogen 23 H 7-18 MG/DL Creatinine 1.29 0.60-1.30 MG/DL Estimat Glomerular Filtration Rate 54 BUN/Creatinine Ratio 18 Glucose Level 185 H 70-105 MG/DL Lactic Acid Level 1.18 0.50-2.00 MMOL/L Calcium Level 9.0 8.5-10.1 MG/DL Corrected Calcium 9.5 8.5-10.1 MG/DL Total Bilirubin 0.3 0.1-1.0 MG/DL Aspartate Amino Transf (AST/SGOT) 13 5-34 U/L Alanine Aminotransferase (ALT/SGPT) 8 0-55 U/L Alkaline Phosphatase 78 40-136 U/L Troponin I < 0.30 <0.30 NG/ML C-Reactive Protein 3.09 H <0.50 MG/DL Pro-B-Type Natriuretic Peptide 8054.0 H <75.0 PG/ML Total Protein 7.4 6.4-8.2 GM/DL Albumin 3.4 3.2-4.5 GM/DL Influenza Type A (RT-PCR) Not Detected Not Detecte Influenza Type B (RT-PCR) Not Detected Not Detecte SARS-CoV-2 RNA (RT-PCR) Not Detected Not Detecte My Orders Orders - LALIT BARAJAS MD Crp Fs (05/21/22 13:22) Troponin I Fs (05/21/22 13:22) Covid 19 Inhouse Test (05/21/22 13:22) Cbc With Automated Diff (05/21/22 13:22) Comprehensive Metabolic Panel (05/21/22 13:22) Blood Culture (05/21/22 13:22) Sputum Culture (05/21/22 13:22) Urinalysis (05/21/22 13:22) Urine Culture (05/21/22 13:22) Protime With Inr (05/21/22 13:22) Partial Thromboplastin Time (05/21/22 13:22) Chest 1 View Ap/Pa Only (05/21/22 13:22) Ed Iv/Invasive Line Start (05/21/22 13:22) Ed Iv/Invasive Line Start (05/21/22 13:22) Ekg Tracing (05/21/22 13:22) Vital Signs Adult Sepsis Patie Q15M (05/21/22 13:22) O2 (05/21/22 13:22) Remove Rings In Anticipation O (05/21/22 13:22) Lactic Acid Analyzer (05/21/22 13:22) Influenza A And B By Pcr (05/21/22 13:22) Ns Iv 1000 Ml (Sodium Chloride 0.9%) (05/21/22 13:30) Cefepime Injection (Maxipime Injection) (05/21/22 13:30) Diltiazem Drip Pre-Mix (Cardizem Drip Pr (05/21/22 13:26) Probnp Fs (05/21/22 13:24) Ondansetron Injection (Zofran Injectio (05/21/22 14:00) Ondansetron Injection (Zofran Injectio (05/21/22 14:01) Medications Given in ED Current Medications Medications Dose Ordered Sig/Mi Route Start Time Stop Time Status Last Admin Dose Admin Cefepime HCl 1000 mg/Sodium Chloride 50 ml @ 100 mls/hr ONCE ONCE IV 05/21/22 13:30 05/21/22 13:59 DC 05/21/22 13:35 100 MLS/HR Ondansetron HCl 4 mg ONCE ONCE IVP 05/21/22 14:00 05/21/22 14:01 DC 05/21/22 14:04 4 MG Vital Signs/I&O 05/21/22 05/21/22 05/21/22 13:20 13:20 13:20 Temp 36.2 Pulse 149 Resp 19 B/P (MAP) 158/88 (111) Pulse Ox 98 O2 Delivery Nasal Cannula Nasal Cannula Room Air O2 Flow Rate 2.00 2.00 Capillary Refill : Progress Note : Progress Note 86-year-old male with above history coming in due to feeling short of breath. The patient was in A. fib with RVR with a rate 140s 150s on arrival. Blood pressure is actually hypertensive. He is close to his baseline mental status, he does not really talk much at all given his prior stroke. His is at the bedside and does majority of the interview as she has taken care of him quite extensively for years. He has not missed any medications, has been taking in adequate p.o., no recent diarrhea or vomiting that would be concerning for dehydration. She says he has a chronic cough which is unchanged and is not bringing anything up. Has not had any fever for her. Due to feeling short of breath on , she took him to the clinic and was started on cefdinir. Went to try to get him up at 11 AM today he was feeling worse so she called an ambulance. On arrival here an IV was placed and he was given a bolus of IV fluids, cefepime for potential infection, he received a DuoNeb and steroids from EMS. He did smoke for many years, but no history of COPD that the knows of. Given he is hypertensive with A. fib with RVR, he has room to start a diltiazem drip. Chest x-ray concerning for pulmonary edema versus pneumonia. I contacted Dr. Buchanan who will admit the patient to the intensive care unit under inpatient status. I also contacted the station mechanic Dr. Roque and discussed the case with him. Given that the patient's BNP was 8000, I lean towards this being more pulmonary edema causing the A. fib with RVR and the patient being volume overloaded. I think it is less likely this is infectious in etiology. I will hold off on giving more IV fluids as I believe it could be harmful to the patient. ECG Initial ECG Impression Date: May 21, 2022 Initial ECG Impression Time: 13:25 Initial ECG Rate: 143 Initial ECG Rhythm: A Fib/Flutter Comment Narrow QRS, borderline left axis deviation, subtle ST depression in the high lateral leads and flattening in the lateral leads V5 and V6, otherwise no significant ST elevation. Compared to prior EKG is much faster and is now in A. fib Diagnostic Imaging Diagonstic Imaging: Xray (chest) Comments NAME: MARIA L CORREA [facility] REC#: [id number] PT STATUS: REG ER : 1935 PHYSICIAN: LALIT BARAJAS MD ADMIT DATE: 05/21/22/ER FS Draft Date of Exam:05/21/22 CHEST 1 VIEW AP/PA ONLY Indication: Dyspnea and tachypnea. Comparison: 03/30/2022. Discussion: Single portable upright view of the chest was obtained. Cardiomegaly is again noted. Hiatal hernia is present. There is severe mixed interstitial and alveolar infiltrates now present, increased from the prior exam. This could represent severe edema or pneumonia. Small right effusion. No pneumothorax or osseous abnormality. Impression: 1. Stable cardiomegaly. New severe pulmonary infiltrates, likely severe edema or pneumonia. Dictated on workstation # [id number] Dict: 05/21/22 1409 Trans: 05/21/22 1411 CVB [id number] Interpreted by: KRISTEL ABBOTT MD Electronically signed by: Departure Impression Primary Impression: Atrial fibrillation with rapid ventricular response Additional Impressions: Pulmonary edema Qualified Codes: J81.0 - Acute pulmonary edema Respiratory failure Qualified Codes: J96.01 - Acute respiratory failure with hypoxia Disposition: 30 STILL A PATIENT Condition: Stable Admissions Decision to Admit Reason: Admit from ER (General) Decision to Admit/Date: May 21, 2022 Time/Decision to Admit Time: 14:10 Transfer Method of Transfer: EMS Departure-Patient Inst. Referrals: GREGG DOYLE MD (PCP/Family) Primary Care Physician LALIT BARAJAS MD May 21, 2022 13:34
[2022-05-21 13:40] LABS: INR 2.4 (0.8-1.4)
[2022-05-21 13:51] LABS: ALANINE AMINOTRANSFERASE 8 U/L (0-55); ALKALINE PHOSPHATASE 78 U/L (40-136); BILIRUBIN,TOTAL 0.3 MG/DL (0.1-1.0); BUN/CREATININE RATIO 18; CARBON DIOXIDE 18 MMOL/L (21-32); CHLORIDE 102 MMOL/L (98-107); CREATININE SERUM 1.29 MG/DL (0.60-1.30); GFR ESTIMATED 54; GLUCOSE 185 MG/DL (70-105); SODIUM 132 MMOL/L (135-145)
[2022-05-21 13:52] LABS: ALBUMIN 3.4 GM/DL (3.2-4.5); POTASSIUM 5.2 MMOL/L (3.6-5.0); TOTAL PROTEIN 7.4 GM/DL (6.4-8.2)
[2022-05-21] MEDS ORDERED: ONDANSETRON 4 MG/2 ML (SDV) Z0FRAN IVP ONE (14:00)
[2022-05-21] MEDS ORDERED: ONDANSETRON 4 MG/2 ML (SDV) Z0FRAN ONE (14:01)
--- NOTE | 2022-05-21 14:12 | Diagnostic Imaging Report ---
Indication: Dyspnea and tachypnea. Comparison: 03/30/2022. Discussion: Single portable upright view of the chest was obtained. Cardiomegaly is again noted. Hiatal hernia is present. There is severe mixed interstitial and alveolar infiltrates now present, increased from the prior exam. This could represent severe edema or pneumonia. Small right effusion. No pneumothorax or osseous abnormality. Impression: 1. Stable cardiomegaly. New severe pulmonary infiltrates, likely severe edema or pneumonia. Dictated by: Dictated on workstation # [id number]
[2022-05-21] MEDS ORDERED: polyethylene glycoL POWDER 17 GM (MIRALAX) PACK PO PRN (15:00)
[2022-05-21] MEDS ORDERED: ONDANSETRON 4 MG (ZOFRAN) ORAL DISSOLVE TAB PO PRN (15:00)
[2022-05-21] MEDS ORDERED: BISACODYL 10 MG SUPP (DULCOLAX) PR PRN (15:00)
[2022-05-21] MEDS ORDERED: morphine INJ 4 MG/ML 1 ML (VIAL/SYRINGE) IV PRN (15:00)
[2022-05-21] MEDS ORDERED: ANTACID SUSP 30 ML UDC (MYLANTA) PO PRN (15:00)
[2022-05-21] MEDS ORDERED: ACETAMINOPHEN 325 MG TABLET PO PRN (15:00)
[2022-05-21] MEDS ORDERED: diphenhydrAMINE 50 MG/ML INJ (BENADRYL) IVP PRN (15:00)
[2022-05-21] MEDS ORDERED: MELATONIN 3 MG TABLET PO PRN (15:00)
[2022-05-21] MEDS ORDERED: ALPRAZolam 0.25 MG (XANAX) TAB PO PRN (15:00)
[2022-05-21] MEDS ORDERED: dilTIAZem DRIP PRE-MIX 125 ML IV SCH (15:00)
[2022-05-21] MEDS ORDERED: diphenhydrAMINE 25 MG TAB (BENADRYL) PO PRN (15:00)
[2022-05-21] MEDS ORDERED: LIDOCAINE UROJET 2% GEL 10 ML PKG TOP NR (16:00)
[2022-05-21] MEDS ORDERED: LIDOCAINE UROJET 2% GEL 10 ML PKG ONE (16:06)
--- NOTE | 2022-05-21 16:13 | Tele-ICU Progress Note ---
Subjective Date Seen by a Provider: May 21, 2022 Time Seen by a Provider: 15:50 Subjective/Events-last exam This virtual visit was conducted using real time audio/video. Thank you for asking us to see this patient for respiratory insufficiency due to CHF, afib with RVR. Also possible undiagnosed COPD PMH: CVA w residula L hp, non-verbal. PAF on Coum. DM2, HTN, HL, GERD, Dep., BPH. SH: smoking history: formerly heavy. FH: Non-contributory ROS: limited by patient's clinical conditio. PE: Appears chronically ill, pale. VSS. HR 120 afib. O2 sat 96% on 2 LPM NC. HEENT: No obvious masses, adenopathy or JVD. Chest: clear to auscultation. CV: Irreg S1 S2 No murmur or added sounds. Abd: Non-tender. Bowel sounds Y. : Unremarkable. Hair Y. GENERAL SUPERVISOR/psychiatric: Non verbal, L hp. Extremities: 1-2+ edema. Capillary refill < 3 seconds. Skin: unremarkable. Results: Elevated BNP 8054, WCC 12.2, BUN 23. Decreased Hb 10.2. CXR: B infilts c/w pulmonary edema, hyperinflated. Available chart/ vitals / labs / images reviewed. Video assessment done using teleICU camera, rest of exam as per RN. A/P: Respiratory insufficiency: Continue present management with O2. Will add Duonebs with possible undiagnosed COPD Monitor for increasing oxygenation needs and/or need for intubation. Critical Care: critically ill patient. Cont. Dilt., abx, coumadin, SSI Discussed with DEENA Garcia. Asked RN to reach out to eICU if any questions or concerns later. Time spent with patient/coordination of care with other health professionals (mins): 35 Sepsis Event Evaluation Height, Weight, BMI Height: 5'6.00" Weight: 177lbs. 2.0oz. 80.245671gj; 34.00 BMI Method: Focused Exam Lactate Level 05/21/22 13:24: Lactic Acid Level 1.18 Lactic Acid Level Laboratory Tests Test 05/21/22 13:24 Lactic Acid Level 1.18 MMOL/L (0.50-2.00) Exam Exam Patient acknowledged, consented, and participated in this virtual visit which was conducted using real time audio/video Vital Signs Date Time Temp Pulse Resp B/P (MAP) Pulse Ox O2 Delivery O2 Flow Rate FiO2 05/21/22 14:49 139 18 155/85 99 Nasal Cannula 2.00 05/21/22 13:20 36.2 149 19 158/88 (111) Room Air 05/21/22 13:20 98 Nasal Cannula 2.00 05/21/22 13:20 Nasal Cannula 2.00 Height & Weight Height: 5'6.00" Weight: 177lbs. 2.0oz. 80.643611av; 34.00 BMI Method: General Appearance: No Apparent Distress, Chronically ill HEENT: PERRL/EOMI, Normal ENT Inspection, Pharynx Normal Neck: Full Range of Motion, Normal Inspection, Non Tender, Supple Respiratory: Chest Non Tender, Lungs Clear, Normal Breath Sounds, No Accessory Muscle Use, No Respiratory Distress Cardiovascular: Irregularly Irregular, Tachycardia, Other (lower extremity amna ma) Capillary Refill: Less Than 3 Seconds Extremity: Normal Capillary Refill, Normal Inspection, Normal Range of Motion, Non Tender, No Calf Tenderness, No Pedal Edema Neurologic/Psychiatric: Alert, Normal Mood/Affect, Other (residual left sided weakness) Skin: Normal Color, Warm/Dry Lymphatic: No Adenopathy Results Lab Laboratory Tests 05/21/22 13:24 Assessment/Plan Assessment/Plan See free text. Critical Care: Critically Ill Patient FATOUMATA MELENDEZ MD May 21, 2022 16:13
[2022-05-21] MEDS ORDERED: RT-ALBUTEROL/IPRATROPIUM 3 ML (DUONEB) VIAL INH PRN (16:30)
[2022-05-21 16:49] LABS: BILIRUBIN,URINE NEGATIVE (NEGATIVE); CLARITY,URINE CLEAR; COLOR,URINE YELLOW; GLUCOSE, URINE (UA) NEGATIVE (NEGATIVE); KETONES,URINE TRACE (NEGATIVE); NITRITE,URINE NEGATIVE (NEGATIVE); PH,URINE 5.5 (5-9); PROTEIN,URINE 1+ (NEGATIVE)
[2022-05-21 16:50] LABS: BACTERIA,URINE NEGATIVE /HPF; GRANULAR CASTS,URINE RARE /LPF; LEUKOCYTE ESTERASE ,URINE TRACE (NEGATIVE)
[2022-05-21] MEDS ORDERED: FUROSEMIDE 40 MG/4 ML INJ (LASIX) IVP NR (17:00)
[2022-05-21] MEDS: inSUlin ASPART (NovoLOG) 1 UNIT/0.01 ML (CHARGE PER UNIT) SC SCH ×2 (18:13→21:51)
[2022-05-21] MEDS: warFARin 2 MG (COUMADIN) TAB PO SCH (18:14)
[2022-05-21] MEDS: DOCUSATE SODIUM 100 MG (COLACE) CAP PO SCH (21:50)
[2022-05-21] MEDS: DOXYCYCLINE INJECTION 100 MG in NS (IVPB) 100 ML IV SCH (21:51)
[2022-05-22] MEDS: CEFEPIME INJECTION 1,000 MG in NS (IVPB) 50 ML IV SCH ×2 (02:46→12:48)
[2022-05-22 05:01] LABS: BASOPHILS % (AUTO) 0 % (0-10); EOSINOPHILS % (AUTO) 0 % (0-10); HEMATOCRIT 33 % (40-54); LYMPHOCYTES # (AUTO) 1.6 10^3/uL (1.0-4.0); LYMPHOCYTES % (AUTO) 26 % (12-44); MEAN CORPUSCULAR HEMOGLOBIN 31 pg (25-34); MEAN CORPUSCULAR HGB CONC 31 g/dL (32-36); MEAN CORPUSCULAR VOLUME 101 fL (80-99); MEAN PLATELET VOLUME 10.1 fL (9.0-12.2); MONOCYTES # (AUTO) 0.5 10^3/uL (0.0-1.0); MONOCYTES % (AUTO) 8 % (0-12); NEUTROPHILS # (AUTO) 3.9 10^3/uL (1.8-7.8); NEUTROPHILS % (AUTO) 66 % (42-75); PLATELET COUNT 270 10^3/uL (130-400); WHITE BLOOD COUNT 5.9 10^3/uL (4.3-11.0)
[2022-05-22 05:11] LABS: ALBUMIN 3.3 GM/DL (3.2-4.5); POTASSIUM 5.5 MMOL/L (3.6-5.0)
[2022-05-22 05:12] LABS: CALCIUM 8.7 MG/DL (8.5-10.1); INR 3.4 (0.8-1.4); PROTHROMBIN TIME PATIENT 34.7 SEC (12.2-14.7)
[2022-05-22 05:14] LABS: TOTAL PROTEIN 6.9 GM/DL (6.4-8.2)
[2022-05-22 05:15] LABS: BILIRUBIN,TOTAL 0.3 MG/DL (0.1-1.0)
[2022-05-22 05:17] LABS: CREATININE SERUM 1.26 MG/DL (0.60-1.30)
--- NOTE | 2022-05-22 05:19 | History & Physical-Hospitalist ---
History of Present Illness HPI/Chief Complaint Chief complaint: Kareem coelho with RVR with pneumonia History of present illness: This is an 86-year-old male with history of atrial fibrillation who presented to the ER with complaints of palpitations was found to have atrial fibrillation with rapid response in addition he had evidence of pneumonia and pulmonary edema. He was given 1 L of fluid in the ER but due to volume overload concerns we did not use any additional fluid. Cefepime was initiated for pneumonia. Cardiology assessment patient to have normal sinus rh ythm shortly after he arrived. Shortly after I assessed him this morning he went into respiratory distress and was placed on BiPAP after metabolic acidosis evaluated on ABG. To note he has been debilitated over 10 years and fully dependent on his for caregiving and all ADLs because of the stroke with subsequent severe disability. I had a long conversation with her about plan and ventilator management and what his living will said about it Being dependent on a Ventilator but she seemed to be overwhelmed so I recommended discussing all of this with her son. He remains full code at this point. Source: family, RN/MD, caregiver Exam Limitations: clinical condition Date Seen 05/22/22 Time Seen by a Provider: 05:30 Attending Physician Sumeet Sears MD PCP Admitting Physician: Elsie Buchanan DO Attending Physician: Elsie Buchanan DO Referring Physician Date of Admission May 21, 2022 at 15:46 Home Medications & Allergies Home Medications Reviewed patient Home Medication Reconciliation performed by pharmacy medication reconciliations wildlife technician and/or nursing. Patients Allergies have been reviewed. Allergies Allergies Coded Allergies aspirin (Verified Allergy, Severe, 11/22/18) butalbital (Verified Allergy, Severe, 11/22/18) atropine (Verified Allergy, Unknown, 11/22/18) celecoxib (Verified Allergy, Unknown, 11/22/18) diphenoxylate (Verified Allergy, Unknown, 11/22/18) levofloxacin (Verified Allergy, Unknown, 11/22/18) strawberry (Verified Allergy, Unknown, 11/22/18) Uncoded Allergies BEE STING ( Allergy, Severe, 11/22/18) Past Bupihst-Lwacqi-Npwlue Hx Patient Social History Marrital Status: Employed/Student: retired Tobacco Use?: No Smoking Status: Former Smoker Smokeless Tobacco Frequency: Never a User Use of E-Cig and/or Vaping dev: No Use of E-Cig and/or Vaping Franky: Never a User Substance use?: No Alcohol Use?: No Pt feels they are or have been: No Immunizations Up To Date First/Initial COVID19 Vaccinat: unvaccinated Second COVID19 Vaccination Gregorio: unvaccinated Tetanus Booster (TDap): Unknown Seasonal Allergies Seasonal Allergies: Yes Current Status Advance Directives: Yes Advance Directive Location: Home Communicates: Verbally Primary Language: [place] Preferred Spoken Language: [place] Is interpretation needed?: No Sensory deficits: Vision impairment, Speech impairment Implanted or Applied Medical D: None Past Medical History Surgeries: Vasectomy Pneumonia, COPD Currently Using CPAP: No Currently Using BIPAP: No Atrial Fibrillation, Hypertension Stroke Prostate Problems Gastroesophageal Reflux Arthritis Diabetes, Non-Insulin dep Depression Family Medical History Cardiovascular disease 19 FATHER, Dementia G8 BROTHER G8 SISTER, FH: cancer 19 MOTHER, FH: cancer 19 MOTHER, No Pertinent Family Hx Review of Systems Constitutional: see HPI, malaise, weakness EENTM: no symptoms reported Respiratory: dyspnea on exertion, short of breath Cardiovascular: chest pain, palpitations Gastrointestinal: no symptoms reported Genitourinary: no symptoms reported Musculoskeletal: no symptoms reported Skin: no symptoms reported Psychiatric/Neurological: No Symptoms Reported All Other Systems Reviewed Negative Unless Noted: Yes Physical Exam Physical Exam Vital Signs Vital Signs - First Documented 05/21/22 05/22/22 13:20 07:45 Temp 36.2 Pulse 149 Resp 19 B/P (MAP) 158/88 (111) Pulse Ox 98 O2 Delivery Nasal Cannula O2 Flow Rate 2.00 FiO2 40 Capillary Refill : Less Than 3 Seconds Height, Weight, BMI Height: 5'6.00" Weight: 177lbs. 2.0oz. 80.564625by; 54.24 BMI Method: General Appearance: No Apparent Distress Eyes: Right Eye Normal Inspection, Right Eye PERRL HEENT: PERRL/EOMI, Normal ENT Inspection, Pharynx Normal, Moist Mucous Membranes Neck: Full Range of Motion, Normal Inspection, Non Tender Respiratory: Chest Non Tender, Lungs Clear, Normal Breath Sounds, No Accessory Muscle Use, No Respiratory Distress Cardiovascular: Regular Rate, Rhythm, No Edema, No Gallop, No JVD, No Murmur, Normal Peripheral Pulses Gastrointestinal: Normal Bowel Sounds, No Organomegaly, No Pulsatile Mass, Non Tender, Soft Back: Normal Inspection, No CVA Tenderness, No Vertebral Tenderness Extremity: Normal Capillary Refill, Normal Inspection, Normal Range of Motion, Non Tender, No Calf Tenderness, No Pedal Edema Neurologic/Psychiatric: Alert, Oriented x3, No Motor/Sensory Deficits, Normal Mood/Affect, Aphasia (Partial type), Facial Droop, Motor Weakness Skin: Normal Color, Warm/Dry Lymphatic: No Adenopathy Results Results/Procedures Labs Laboratory Tests 05/21/22 13:24 05/22/22 04:47 Patient resulted labs reviewed. Assessment/Plan Admission Diagnosis Assessment: Atrial fibrillation with ventricular response converted to NSR after Cardizem drip Pneumonia Acute respiratory distress requiring BiPAP today on 05/22/2022 and 0545 Prior stroke 10 years ago significant disability with expressive aphasia COPD Former smoker History of recurrent pneumonia Hypertension BPH Diabetes Plan: Oral anticoagulation Monitor heart rate and blood pressure BiPAP Admission Status: Inpatient Order (span 2 midnights) Reason for Inpatient Admission: A. fib with RVR with pneumonia and respiratory distress Diagnosis/Problems Diagnosis/Problems (1) Atrial fibrillation with rapid ventricular response (2) Respiratory failure Status: Acute Qualifiers: Chronicity: acute Respiratory failure complication: hypoxia Qualified Codes: J96.01 - Acute respiratory failure with hypoxia (3) CVA, old, hemiparesis ELSIE BUCHANAN DO May 22, 2022 05:19
[2022-05-22 05:20] LABS: MAGNESIUM 1.6 MG/DL (1.6-2.4)
[2022-05-22] MEDS ORDERED: POTASSIUM CL 10MEQ/50ML IVPB 50 ML IV SCH (06:00)
[2022-05-22] MEDS ORDERED: KCL 20 MEQ TAB (K-DUR) PO SCH (06:00)
[2022-05-22] MEDS ORDERED: MAGNESIUM 1 GM/100 ML IVPB 100 ML IV SCH (06:00)
[2022-05-22] MEDS ORDERED: FUROSEMIDE 40 MG/4 ML INJ (LASIX) ONE (06:29)
[2022-05-22] MEDS ORDERED: RT-ALBUTEROL/IPRATROPIUM 3 ML (DUONEB) VIAL INH ONE (06:30)
[2022-05-22] MEDS: inSUlin ASPART (NovoLOG) 1 UNIT/0.01 ML (CHARGE PER UNIT) SC SCH ×4 (06:32→22:10)
[2022-05-22 06:35] VITALS: BP 161/88
--- NOTE | 2022-05-22 06:44 | Diagnostic Imaging Report ---
Indication: Dyspnea, follow-up pneumonia. Comparison: 05/21/2022. Discussion: Single portable upright view of the chest was obtained. Mild cardiomegaly stable. Bilateral mixed interstitial and alveolar infiltrates are increased, severe. This could be seen with edema or pneumonia. Small effusions are present bilaterally. No pneumothorax or osseous abnormality. Impression: 1. Cardiomegaly and small effusions appear stable. 2. Severe diffuse pulmonary infiltrates, increased. Dictated by: Dictated on workstation # [id number]
[2022-05-22] MEDS ORDERED: RT-ALBUTEROL/IPRATROPIUM 3 ML (DUONEB) VIAL ONE (06:52)
[2022-05-22] MEDS ORDERED: RT-ALBUTEROL/IPRATROPIUM 3 ML (DUONEB) VIAL INH PRN (07:00)
[2022-05-22] MEDS: RT-BUDESONIDE NEBS 0.5 MG/2ML (PULMICORT) AMP INH SCH ×2 (07:09→18:40)
[2022-05-22] MEDS: RT-ALBUTEROL/IPRATROPIUM 3 ML (DUONEB) VIAL INH SCH ×5 (07:09→22:33)
[2022-05-22 07:11] LABS: ABG BASE EXCESS -8.9 MMOL/L (-2.5-2.5); ABG OXYGEN SATURATION 94 % (94-100); ABG PCO2 39 MMHG (35-45); ABG PO2 76 MMHG (79-93); ABG TCO2 18.3 MMOL/L (21.0-31.0)
[2022-05-22 07:14] LABS: ABG PH 7.25 (7.37-7.43)
[2022-05-22 07:15] LABS: ALLENS TEST YES-POS; INSPIRED O2 30%; PATIENT TEMP 36.4; VENTILATOR NO
[2022-05-22 07:44] LABS: TRIGLYCERIDES 72 MG/DL (<150); VLDL CHOLESTEROL 14 MG/DL (5-40)
[2022-05-22 07:49] LABS: CHOLESTEROL 112 MG/DL (< 200)
[2022-05-22 07:50] LABS: HDL CHOLESTEROL 41 MG/DL (40-60)
[2022-05-22] MEDS ORDERED: FUROSEMIDE 40 MG/4 ML INJ (LASIX) IVP SCH ×2 (09:00)
--- NOTE | 2022-05-22 09:37 | Tele-ICU Progress Note ---
Subjective Date Seen by a Provider: May 22, 2022 Time Seen by a Provider: 08:15 Subjective/Events-last exam This virtual visit was conducted using real time audio/video. Thank you for asking us to see this patient for respiratory insufficiency due to CHF, afib with RVR. Also possible undiagnosed COPD PMH: CVA w residual L hp, non-verbal. PAF on Coum., DM2, HTN, HL, GERD, Dep., BPH. SH: smoking history: formerly heavy. FH: Non-contributory ROS: limited by patient's clinical condition. PE: Appears chronically ill, pale. VSS. HR 110-120 afib. O2 sat 95% on 2 LPM NC. HEENT: No obvious masses, adenopathy or JVD. Chest: clear to auscultation. CV: Irreg S1 S2 No murmur or added sounds. Abd: Non-tender. Bowel sounds Y. : Unremarkable. Hair Y. CHIEF DATA OFFICER/psychiatric: Non verbal, L hp. Extremities: 1-2+ edema. Capillary refill < 3 seconds. Skin: unremarkable. Results: Elevated BNP 8054, BUN 23, BG 162. Decreased Hb 10.0. AB.25/39/76 on 30%. CXR: B infilts c/w pulmonary edema, hyperinflated. Available chart/ vitals / labs / images reviewed. Video assessment done using teleICU camera, rest of exam as per RN. A/P: Respiratory insufficiency: Continue present management with O2, Pulmicort, Prednisone. Duonebs added with possible undiagnosed COPD Monitor for increasing oxygenation needs and/or need for intubation. Critical Care: critically ill patient. Cont. Dilt., abx, coumadin, SSI , lasix. Discussed with DEENA Garcia. Asked RN to reach out to eICU if any questions or concerns later. Time spent with patient/coordination of care with other health professionals (mins): 36. Sepsis Event Evaluation Height, Weight, BMI Height: 5'6.00" Weight: 177lbs. 2.0oz. 80.462840xl; 54.24 BMI Method: Focused Exam Lactate Level 05/21/22 13:24: Lactic Acid Level 1.18 Exam Exam Patient acknowledged, consented, and participated in this virtual visit which was conducted using real time audio/video Vital Signs Date Time Temp Pulse Resp B/P (MAP) Pulse Ox O2 Delivery O2 Flow Rate FiO2 05/22/22 08:03 35.8 NIV Bilevel 40.00 05/22/22 08:00 116 9 141/58 97 NIV Bilevel 40.00 05/22/22 07:45 NIV Bilevel 40 05/22/22 07:14 114 20 96 30.00 05/22/22 07:08 115 26 96 30.00 05/22/22 07:00 115 05/22/22 07:00 115 19 147/81 95 NIV Bilevel 40.00 05/22/22 06:35 140 35 95 100.00 05/22/22 06:00 134 28 186/105 96 Nasal Cannula 2.00 05/22/22 05:00 116 31 176/117 97 Nasal Cannula 2.00 05/22/22 04:00 107 19 139/89 97 Nasal Cannula 2.00 05/22/22 03:00 101 17 139/83 98 Nasal Cannula 2.00 05/22/22 02:00 100 27 137/84 97 Nasal Cannula 2.00 05/22/22 01:00 105 19 135/80 97 Nasal Cannula 2.00 05/22/22 01:00 104 05/22/22 00:00 104 17 133/80 97 Nasal Cannula 2.00 05/21/22 23:00 105 17 138/79 97 Nasal Cannula 2.00 05/21/22 22:00 112 17 135/86 98 Nasal Cannula 2.00 05/21/22 21:00 109 19 139/90 98 Nasal Cannula 2.00 05/21/22 20:00 36.4 05/21/22 20:00 112 18 135/83 98 Nasal Cannula 2.00 05/21/22 19:00 103 05/21/22 19:00 103 25 134/76 95 Nasal Cannula 2.00 05/21/22 18:00 109 19 135/90 96 Nasal Cannula 2.00 05/21/22 17:00 111 18 136/72 96 Nasal Cannula 2.00 05/21/22 16:16 118 05/21/22 16:00 122 19 137/78 96 Nasal Cannula 2.00 05/21/22 15:45 Nasal Cannula 3.00 05/21/22 14:49 139 18 155/85 99 Nasal Cannula 2.00 05/21/22 13:20 36.2 149 19 158/88 (111) Room Air 05/21/22 13:20 98 Nasal Cannula 2.00 05/21/22 13:20 Nasal Cannula 2.00 I & O 05/22/22 07:00 Intake Total 1350 ml Output Total 500 ml Balance 850 ml Height & Weight Height: 5'6.00" Weight: 177lbs. 2.0oz. 80.209310ok; 54.24 BMI Method: General Appearance: No Apparent Distress, Chronically ill HEENT: PERRL/EOMI, Normal ENT Inspection, Pharynx Normal Neck: Full Range of Motion, Normal Inspection, Non Tender, Supple Respiratory: Chest Non Tender, Lungs Clear, Normal Breath Sounds, No Accessory Muscle Use, No Respiratory Distress Cardiovascular: Irregularly Irregular, Tachycardia, Other (lower extremity edema) Capillary Refill: Less Than 3 Seconds Extremity: Normal Capillary Refill, Normal Inspection, Normal Range of Motion, Non Tender, No Calf Tenderness, No Pedal Edema Neurologic/Psychiatric: Alert, Normal Mood/Affect, Other (residual left sided weakness) Skin: Normal Color, Warm/Dry Lymphatic: No Adenopathy Results Lab Laboratory Tests 05/21/22 13:24 05/22/22 04:47 Assessment/Plan Assessment/Plan See free text. Critical Care: Critically Ill Patient FATOUMATA MELENDEZ MD May 22, 2022 09:37
--- NOTE | 2022-05-22 09:41 | Consultation-Cardiology ---
HPI-Cardiology Cardiology Consultation: Date of Consultation 05/22/22 Date of Admission 05/21/22 Attending Physician Sumeet Sears MD Admitting Physician Admitting Physician: Elsie Buchanan DO Attending Physician: Elsie Buchanan DO Consulting Physician KRISTEL PEREZ JR, MD HPI: Time Seen by a Provider: 09:30 Chief Complaint: REASON FOR CONSULTATION: Atrial fibrillation and heart failure. I had the pleasure of seeing Andrey in the intensive care unit at [facility] in [place], [place] today. When I saw the patient, he was on BiPAP. He also has expressive aphasia ever since his stroke in 2011. As such, I obtained the majority of the history from the patient's as well as his nurse. His tells me that earlier in the week he had a low-grade fever. They did not seek medical attention at that time. He does have a chronic, intermittent cough which was unchanged earlier in the week. However, later in the week he developed worsening shortness of breath. They had an appointment to have blood drawn for an INR and also got an urgent visit with their primary provider. Due to the worsening shortness of breath coupled with his cough and low-grade fever earlier in the week, he was placed on oral antibiotics. However, his shortness of breath became progressively worse and yesterday his called rescue and he was taken to [facility] emergency room. During his evaluation, he was found to be in atrial fibrillation with a rapid ventricular rate and also with probable pulmonary edema and pneumonia. He was then transferred to our intensive care unit. He was placed on diltiazem infusion at the outside emergency room but overnight he converted to sinus rhythm and the diltiazem was discontinued. He had a history of hypertension in the past but became normotensive and has not currently been on any antihypertensive medication. His does not know of any history of atrial fibrillation but states he has been on warfarin ever since his stroke in 2011. She denies any history of heart failure or other specific cardiac conditions. He has been sleeping upright in a bed for many years due to a hiatal hernia and gastroesophageal reflux disease. He has not reported any chest discomfort, paroxysmal nocturnal dyspnea, palpitations, lightheadedness, or syncope. He has had mild left lower extremity edema ever since his stroke that resulted in left hemiparesis. Because of the atrial fibrillation and pulmonary edema, a cardiology consultation was requested. Certain portions of this document may have been dictated utilizing voice recognition technology. Inherent to this technology, typographical and grammatical errors may exist. As much as I am diligent to identify and correct these mistakes, some errors may remain in the document. Review of Systems-Cardiology Review of Systems Other comments Unable to obtain due to the patient's expressive aphasia. However, I did review these questions with his who was at the bedside. All Other Systems Reviewed Negative Unless Noted: Yes CFL-[id number]-Ugozxm Hx Patient Social History Marrital Status: Smoking Status: Former Smoker Have you traveled recently?: No Alcohol Use?: No Pt feels they are or have been: No Past Medical History PMH As described under Assessment. Family Medical History Family History: Cardiovascular disease 19 FATHER, Dementia G8 BROTHER G8 SISTER, FH: cancer 19 MOTHER, FH: cancer 19 MOTHER, Allergies and Home Medications Allergies Coded Allergies: aspirin (Verified Allergy, Severe, 11/22/18) butalbital (Verified Allergy, Severe, 11/22/18) atropine (Verified Allergy, Unknown, 11/22/18) celecoxib (Verified Allergy, Unknown, 11/22/18) diphenoxylate (Verified Allergy, Unknown, 11/22/18) levofloxacin (Verified Allergy, Unknown, 11/22/18) strawberry (Verified Allergy, Unknown, 11/22/18) Uncoded Allergies: BEE STING (Allergy, Severe, 11/22/18) Patient Home Medication List Home Medication List Reviewed: Yes Acetaminophen (Tylenol Extra Strength) 500 Mg Tablet, 1,000 MG PO TID, (Reported) Entered as Reported by: OANH SALDAÑA on 11/22/18 1609 Last Action: Last Taken Edited Ascorbate Calcium (Vitamin C) 500 Mg Tablet, 500 MG PO DAILY, (Reported) Entered as Reported by: OANH SALDAÑA on 11/22/18 1609 Atorvastatin Calcium (Atorvastatin Calcium) 10 Mg Tablet, 5 MG PO HS, (Reported) Entered as Reported by: OANH SALDAÑA on 11/22/18 1549 Last Action: Continued Cefdinir (Cefdinir) 300 Mg Capsule, 300 MG PO BID Prescribed by: LALIT BARAJAS on 05/07/22 1645 Last Action: Last Taken Edited Cholecalciferol (Vitamin D3) (Vitamin D) 2,000 Unit Capsule, 2,000 UNIT PO DAILY, (Reported) Entered as Reported by: OANH SALDAÑA on 11/22/181608 Last Action: Last Taken Edited Finasteride (Finasteride) 5 Mg Tablet, 5 MG PO DAILY, (Reported) Entered as Reported by: OANH SALDAÑA on 11/22/181548 Last Action: Last Taken Edited Flaxseed Oil (Flax Seed Oil) 1,000 Mg Capsule, 1,000 MG PO DAILY, (Reported) Entered as Reported by: OANH SALDAÑA on 11/22/181608 Last Action: Last Taken Edited Iron Polysaccharide Complex (Ferrex 150) 150 Mg Capsule, 150 MG PO BID, (Reported) Entered as Reported by: OANH SALDAÑA on 11/22/181608 Last Action: Last Taken Edited Metformin HCl (Metformin HCl) 850 Mg Tablet, 850 MG PO BID, (Reported) Entered as Reported by: OANH SALDAÑA on 11/22/181548 Last Action: Last Taken Edited Montelukast Sodium (Montelukast Sodium) 10 Mg Tablet, 10 MG PO HS, (Reported) Entered as Reported by: OANH SALDAÑA on 11/22/181548 Last Action: Last Taken Edited Multivitamin (Daily Multiple Vitamin) 1 Each Tablet, 1 TAB PO DAILY, (Reported) Entered as Reported by: OANH SALDAÑA on 11/22/181608 Last Action: Last Taken Edited Niacinamide (Niacin) 500 Mg Tablet, 500 MG PO DAILY, (Reported) Entered as Reported by: OANH SALDAÑA on 11/22/181608 Last Action: Last Taken Edited Omeprazole (Omeprazole) 20 Mg Capsule.dr, 20 MG PO DAILY, (Reported) Entered as Reported by: OANH SALDAÑA on 11/22/181548 Last Action: Last Taken Edited Sitagliptin Phosphate (Januvia) 100 Mg Tablet, 100 MG PO DAILY, (Reported) Entered as Reported by: OANH SALDAÑA on 11/22/181548 Last Action: Last Taken Edited Tamsulosin HCl (Tamsulosin HCl) 0.4 Mg Cap.er.24h, 0.4 MG PO 1730, (Reported) Entered as Reported by: OANH SALDAÑA on 11/22/181548 Last Action: Last Taken Edited Trimethoprim (Trimethoprim) 100 Mg Tablet, 100 MG PO HS, (Reported) Entered as Reported by: OANH SALDAÑA on 11/22/181548 Last Action: Last Taken Edited Warfarin Sodium (Warfarin Sodium) 1 Mg Tablet, 2 MG PO Q48H, (Reported) Entered as Reported by: OANH Aamir PIPER on 11/22/181548 Last Action: Last Taken Edited Exam Vital Signs Vital Signs Date Time Temp Pulse Resp B/P (MAP) Pulse Ox O2 Delivery O2 Flow Rate FiO2 05/22/22 11:00 101 10 129/85 94 NIV Bilevel 40.00 05/22/22 08:03 35.8 05/22/22 07:45 40 Physical Exam General: Alert. No acute distress on BiPAP. Well nourished and appears stated age. Eye: Extraocular movements are intact. Conjunctivae are clear. There are no xanthelasma. HENT: Normocephalic. Atraumatic. Carotid pulsations 2/2 without bruits. Neck: Jugular venous pressure does not appear elevated. No thyromegaly appreciated. Respiratory: Lungs have coarse upper airway sounds due to the BiPAP. Breath sounds are equal. Symmetrical chest wall expansion. Cardiovascular: Normal rate. Regular rhythm. Distant S1/S2. No murmur. No gallop. Point of maximal impulse is not appear displaced. Good pulses equal in all extremities. Trace left lower extremity edema. Gastrointestinal: Soft. Normal bowel sounds. Skin: Skin turgor is normal. There is no pallor. Musculoskeletal: No kyphosis or scoliosis appreciated. Neurologic: Alert on BiPAP. Unable to assess orientation due to the BiPAP and his expressive aphasia. Cranial nerves 3-12 appear grossly intact. The patient has left hemiparesis. Psychiatric: Cooperative. Labs Laboratory Tests Test 05/21/22 13:24 05/21/22 13:30 05/21/22 16:15 05/21/22 17:14 Range/Units White Blood Count 12.2 H 4.3-11.0 10^3/uL Red Blood Count 3.31 L 4.30-5.52 10^6/uL Hemoglobin 10.2 L 13.3-17.7 g/dL Hematocrit 33 L 40-54 % Mean Corpuscular Volume 99 80-99 fL Mean Corpuscular Hemoglobin 31 25-34 pg Mean Corpuscular Hemoglobin Concent 31 L 32-36 g/dL Red Cell Distribution Width 13.2 10.0-14.5 % Platelet Count 291 130-400 10^3/uL Mean Platelet Volume 10.0 9.0-12.2 fL Immature Granulocyte % (Auto) 0 % Neutrophils (%) (Auto) 34 L 42-75 % Lymphocytes (%) (Auto) 56 H 12-44 % Monocytes (%) (Auto) 8 0-12 % Eosinophils (%) (Auto) 2 0-10 % Basophils (%) (Auto) 0 0-10 % Neutrophils # (Auto) 4.2 1.8-7.8 10^3/uL Lymphocytes # (Auto) 6.8 H 1.0-4.0 10^3/uL Monocytes # (Auto) 0.9 0.0-1.0 10^3/uL Eosinophils # (Auto) 0.3 0.0-0.3 10^3/uL Basophils # (Auto) 0.1 0.0-0.1 10^3/uL Immature Granulocyte # (Auto) 0.0 0.0-0.1 10^3/uL Prothrombin Time 27.0 H 12.2-14.7 SEC INR Comment 2.4 H 0.8-1.4 Activated Partial Thromboplast Time 63 H 24-35 SEC Sodium Level 132 L 135-145 MMOL/L Potassium Level 5.2 H 3.6-5.0 MMOL/L Chloride Level 102 98-107 MMOL/L Carbon Dioxide Level 18 L 21-32 MMOL/L Anion Gap 12 5-14 MMOL/L Blood Urea Nitrogen 23 H 7-18 MG/DL Creatinine 1.29 0.60-1.30 MG/DL Estimat Glomerular Filtration Rate 54 BUN/Creatinine Ratio 18 Glucose Level 185 H 70-105 MG/DL Lactic Acid Level 1.18 0.50-2.00 MMOL/L Calcium Level 9.0 8.5-10.1 MG/DL Corrected Calcium 9.5 8.5-10.1 MG/DL Total Bilirubin 0.3 0.1-1.0 MG/DL Aspartate Amino Transf (AST/SGOT) 13 5-34 U/L Alanine Aminotransferase (ALT/SGPT) 8 0-55 U/L Alkaline Phosphatase 78 40-136 U/L Troponin I < 0.30 <0.30 NG/ML C-Reactive Protein 3.09 H <0.50 MG/DL Pro-B-Type Natriuretic Peptide 8054.0 H <75.0 PG/ML Total Protein 7.4 6.4-8.2 GM/DL Albumin 3.4 3.2-4.5 GM/DL Influenza Type A (RT-PCR) Not Detected Not Detecte Influenza Type B (RT-PCR) Not Detected Not Detecte SARS-CoV-2 RNA (RT-PCR) Not Detected Not Detecte Urine Color YELLOW Urine Clarity CLEAR Urine pH 5.5 5-9 Urine Specific [place] 1.010 L 1.016-1.022 Urine Protein 1+ H NEGATIVE Urine Glucose (UA) NEGATIVE NEGATIVE Urine Ketones TRACE H NEGATIVE Urine Nitrite NEGATIVE NEGATIVE Urine Bilirubin NEGATIVE NEGATIVE Urine Urobilinogen 0.2 < = 1.0 MG/DL Urine Leukocyte Esterase TRACE H NEGATIVE Urine RBC (Auto) 1+ H NEGATIVE Urine RBC 2-5 H /HPF Urine WBC 2-5 /HPF Urine Squamous Epithelial Cells NONE /HPF Urine Crystals NONE /LPF Urine Bacteria NEGATIVE /HPF Urine Casts PRESENT /LPF Urine Granular Casts RARE /LPF Urine Mucus NEGATIVE /LPF Urine Culture Indicated CULTURE PENDING Glucometer 221 H 70-110 MG/DL Test 05/21/22 21:39 05/22/22 04:47 05/22/22 04:49 05/22/22 07:03 Range/Units Glucometer 234 H 70-110 MG/DL White Blood Count 5.9 4.3-11.0 10^3/uL Red Blood Count 3.25 L 4.30-5.52 10^6/uL Hemoglobin 10.0 L 13.3-17.7 g/dL Hematocrit 33 L 40-54 % Mean Corpuscular Volume 101 H 80-99 fL Mean Corpuscular Hemoglobin 31 25-34 pg Mean Corpuscular Hemoglobin Concent 31 L 32-36 g/dL Red Cell Distribution Width 13.2 10.0-14.5 % Platelet Count 270 130-400 10^3/uL Mean Platelet Volume 10.1 9.0-12.2 fL Immature Granulocyte % (Auto) 0 % Neutrophils (%) (Auto) 66 42-75 % Lymphocytes (%) (Auto) 26 12-44 % Monocytes (%) (Auto) 8 0-12 % Eosinophils (%) (Auto) 0 0-10 % Basophils (%) (Auto) 0 0-10 % Neutrophils # (Auto) 3.9 1.8-7.8 10^3/uL Lymphocytes # (Auto) 1.6 1.0-4.0 10^3/uL Monocytes # (Auto) 0.5 0.0-1.0 10^3/uL Eosinophils # (Auto) 0.0 0.0-0.3 10^3/uL Basophils # (Auto) 0.0 0.0-0.1 10^3/uL Immature Granulocyte # (Auto) 0.0 0.0-0.1 10^3/uL Prothrombin Time 34.7 H 12.2-14.7 SEC INR Comment 3.4 H 0.8-1.4 Sodium Level 135 135-145 MMOL/L Potassium Level 5.5 H 3.6-5.0 MMOL/L Chloride Level 108 H 98-107 MMOL/L Carbon Dioxide Level 16 L 21-32 MMOL/L Anion Gap 11 5-14 MMOL/L Blood Urea Nitrogen 25 H 7-18 MG/DL Creatinine 1.26 0.60-1.30 MG/DL Estimat Glomerular Filtration Rate 56 BUN/Creatinine Ratio 20 Glucose Level 162 H 70-105 MG/DL Calcium Level 8.7 8.5-10.1 MG/DL Corrected Calcium 9.3 8.5-10.1 MG/DL Phosphorus Level 4.0 2.3-4.7 MG/DL Magnesium Level 1.6 1.6-2.4 MG/DL Total Bilirubin 0.3 0.1-1.0 MG/DL Aspartate Amino Transf (AST/SGOT) 14 5-34 U/L Alanine Aminotransferase (ALT/SGPT) 8 0-55 U/L Alkaline Phosphatase 62 40-136 U/L Total Protein 6.9 6.4-8.2 GM/DL Albumin 3.3 3.2-4.5 GM/DL Triglycerides Level 72 <150 MG/DL Cholesterol Level 112 < 200 MG/DL LDL Cholesterol Direct 54 1-129 MG/DL VLDL Cholesterol 14 5-40 MG/DL HDL Cholesterol 41 40-60 MG/DL Blood Gas Puncture Site L RAD Blood Gas Patient Temperature 36.4 Arterial Blood pH 7.25 *L 7.37-7.43 Arterial Blood Partial Pressure CO2 39 35-45 MMHG Arterial Blood Partial Pressure O2 76 L 79-93 MMHG Arterial Blood HCO3 17 *L 23-27 MMOL/L Arterial Blood Total CO2 18.3 L 21.0-31.0 MMOL/L Arterial Blood Oxygen Saturation 94 94-100 % Arterial Blood Base Excess -8.9 L -2.5-2.5 MMOL/L Av Test YES-POS Blood Gas Ventilator Setting NO Blood Gas Inspired Oxygen 30% Radiology ECHOCARDIOGRAM (05/22/2022): 1. Left ventricle: The cavity size is normal. There is mild concentric hypertrophy. Systolic function is moderately reduced. The estimated ejection fraction is 35-40%. Moderate diffuse hypokinesis with minor regional variation. Doppler parameters are consistent with abnormal left ventricular relaxation (grade 1 diastolic dysfunction). 2. Left atrium: The left atrium is moderately dilated with a volume index ranging from 30-56 mL/m. 3. Mitral valve: There is moderate mitral regurgitation. 4. Aortic valve: There is mild aortic valve sclerosis. There is trivial aortic r egurgitation. 5. Tricuspid valve: There is mild tricuspid regurgitation. 6. Pulmonary arteries: The estimated pulmonary artery systolic pressure is 31 mmHg assuming a right atrial pressure of 5 mmHg. ECG Impression ECG Comment Electrocardiogram from [facility] at 1325 showed atrial fibrillation with a rapid ventricular rate of 143 bpm with poor R wave progression and nonspecific ST-T wave changes. Electrocardiogram from our ICU at 1945 showed sinus tachycardia 102 bpm with poor R wave progression. Diagnosis/Problems Diagnosis/Problems (1) Paroxysmal atrial fibrillation Assessment & Plan: His does not recall him ever being told he had atrial fibrillation although the fact that he has been on warfarin and had a previous stroke is suspicious for previous history of atrial fibrillation. He has had some recent difficulty controlling his INRs although he has been on antibiotics several times over the past few months. For the time being, I will continue his warfarin. I will start him on low-dose beta-don for rate control in the event he has recurrent atrial fibrillation. (2) Acute heart failure with reduced ejection fraction and diastolic dysfunction Assessment & Plan: He has moderate left ventricular systolic dysfunction with evidence of grade 1 diastolic dysfunction. His family does not know of any previous history of heart failure. He has been ordered for intravenous furosemide. I will also attempt to get him on the appropriate guideline directed medical therapy. We may be somewhat limited by low blood pressures. (3) Cardiomyopathy Assessment & Plan: This is also a new finding in the patient. Exact etiology unclear. We will attempt to initiate guideline directed medical therapy as above. Given his advanced age and history of stroke with chronic expressive aphasia and left-sided hemiparesis, he has not been ideal candidate for an ischemic evaluation. His ejection fraction is just above the cutoff for recommending a LifeVest. (4) Primary hypertension Assessment & Plan: He has a history of hypertension but has not been on antihypertensive medication in the recent past. We will monitor his blood pressures closely while we attempt to get him on the guideline directed medical therapy for heart failure. (5) Mitral regurgitation Assessment & Plan: His echocardiogram shows moderate mitral regurgitation. This could also be contributing to the heart failure. (6) Mixed hyperlipidemia Assessment & Plan: He is on low-dose statin medication at home which has been ordered. (7) Acute on chronic respiratory failure with hypoxemia Assessment & Plan: Most likely multifactorial due to pneumonia with superimposed heart failure. (8) Normocytic anemia Assessment & Plan: He appears to have a chronic normocytic anemia of unknown etiology. (9) History of cerebrovascular accident with residual deficit Assessment & Plan: He has chronic left-sided hemiparesis and expressive aphasia ever since his stroke in 2011. He does not appear to have any new neurologic deficits. (10) Type 2 diabetes mellitus with complication Assessment & Plan: This is being managed by the hospitalist. KRISTEL PEREZ JR, MD May 22, 2022 09:41
[2022-05-22] MEDS: methylPREDNISolone 40 MG/ML (Solu-MEDROL) VIAL IV SCH ×2 (10:22→22:10)
[2022-05-22] MEDS: FUROSEMIDE 40 MG/4 ML INJ (LASIX) IVP SCH (10:23)
[2022-05-22] MEDS: DOXYCYCLINE INJECTION 100 MG in NS (IVPB) 100 ML IV SCH ×2 (10:23→22:10)
[2022-05-22] MEDS: DOCUSATE SODIUM 100 MG (COLACE) CAP PO SCH ×2 (10:23→22:10)
[2022-05-22 14:43] VITALS: BP 125/69
[2022-05-22] MEDS: warFARin 2 MG (COUMADIN) TAB PO SCH (16:33)
[2022-05-22] MEDS ORDERED: warFARin 1 MG (COUMADIN) TAB PO NR (18:00)
[2022-05-22 20:29] VITALS: BP 125/78
[2022-05-22] MEDS: AtorvaSTATin TABLET 10 MG TABLET PO SCH (22:10)
[2022-05-22 22:34] VITALS: BP 120/74
[2022-05-23] MEDS: CEFEPIME INJECTION 1,000 MG in NS (IVPB) 50 ML IV SCH ×2 (02:12→14:43)
[2022-05-23] MEDS: RT-ALBUTEROL/IPRATROPIUM 3 ML (DUONEB) VIAL INH SCH ×6 (02:29→22:27)
[2022-05-23 02:30] VITALS: BP 129/77
[2022-05-23] MEDS: meTOprolol 5 MG/5 ML (LOPRESSOR) VIAL IV PRN (04:53)
--- NOTE | 2022-05-23 05:11 | Progress Note - Hospitalist ---
Subjective HPI/CC On Admission Date Seen by Provider: May 23, 2022 Time Seen by Provider: 05:15 Chief complaint: A. fib with RVR with pneumonia History of present illness: This is an 86-year-old male with history of atrial fibrillation who presented to the ER with complaints of palpitations was found to have atrial fibrillation with rapid response in addition he had evidence of pneumonia and pulmonary edema. He was given 1 L of fluid in the ER but due to volume overload concerns we did not use any additional fluid. Cefepime was initiated for pneumonia. Cardiology assessment patient to have normal sinus rhythm shortly after he arrived. Shortly after I assessed him this morning he went into respiratory distress and was placed on BiPAP after metabolic acidosis evaluated on ABG. To note he has been debilitated over 10 years and fully dependent on his for caregiving and all ADLs because of the stroke with subsequent severe disability. I had a long conversation with her about plan and ventilator management and what his living will said about it Being dependent on a Ventilator but she seemed to be overwhelmed so I recommended discussing all of this with her son. He remains full code at this point. Subjective/Events-last exam Patient doing a little better Still maintained on BiPAP A. fib with RVR returned and remains tachycardic at the bedside Had in-depth conversation regarding end-of-life and living will and the decision to make him DNR was made so I did sign the out of hospital DNR form and ordered that on our EMR Patient denies any new issues otherwise Review of Systems General: Fatigue, Malaise Pulmonary: Dyspnea, Cough Focused Exam Lactate Level 05/21/22 13:24: Lactic Acid Level 1.18 Objective Exam Vital Signs Vital Signs Date Time Temp Pulse Resp B/P (MAP) Pulse Ox O2 Delivery O2 Flow Rate FiO2 05/23/22 14:00 126 28 125/96 95 NIV Bilevel 30.00 05/23/22 11:43 40 05/23/22 04:00 36.4 Capillary Refill : Less Than 3 Seconds General Appearance: Anxious, Chronically ill, Mild Distress, Other (BiPAP intact) Respiratory: No Respiratory Distress, Accessory Muscle Use, Decreased Breath Sounds Cardiovascular: Irregularly Irregular, Tachycardia Neurologic/Psychiatric: Alert, Oriented x3 Results/Procedures Lab Laboratory Tests 05/23/22 05:00 Patient resulted labs reviewed. Assessment/Plan Assessment and Plan Assess & Plan/Chief Complaint Assessment: Atrial fibrillation with ventricular response converted to NSR after Cardizem drip Pneumonia Acute respiratory distress requiring BiPAP on 05/22/2022 at 0545 and is dependent currently Prior stroke 10 years ago significant disability with expressive aphasia COPD Former smoker History of recurrent pneumonia Hypertension BPH Diabetes Plan: Oral anticoagulation Monitor heart rate and blood pressure BiPAP Supportive care DNR Critical Care Critically Ill Patient Diagnosis/Problems Diagnosis/Problems (1) Atrial fibrillation with rapid ventricular response (2) Respiratory failure Status: Acute Qualifiers: Chronicity: acute Respiratory failure complication: hypoxia Qualified Codes: J96.01 - Acute respiratory failure with hypoxia (3) CVA, old, hemiparesis MADI JORDAN DO May 23, 2022 05:11
[2022-05-23 05:38] LABS: BASOPHILS % (AUTO) 0 % (0-10); EOSINOPHILS % (AUTO) 0 % (0-10); HEMATOCRIT 34 % (40-54); HEMOGLOBIN 10.3 g/dL (13.3-17.7); LYMPHOCYTES # (AUTO) 0.5 10^3/uL (1.0-4.0); LYMPHOCYTES % (AUTO) 9 % (12-44); MEAN CORPUSCULAR HEMOGLOBIN 31 pg (25-34); MEAN CORPUSCULAR HGB CONC 31 g/dL (32-36); MEAN CORPUSCULAR VOLUME 100 fL (80-99); MEAN PLATELET VOLUME 10.5 fL (9.0-12.2); MONOCYTES # (AUTO) 0.3 10^3/uL (0.0-1.0); MONOCYTES % (AUTO) 5 % (0-12); NEUTROPHILS # (AUTO) 5.1 10^3/uL (1.8-7.8); NEUTROPHILS % (AUTO) 86 % (42-75); PLATELET COUNT 279 10^3/uL (130-400); WHITE BLOOD COUNT 5.9 10^3/uL (4.3-11.0)
[2022-05-23 05:43] LABS: INR 4.7 (0.8-1.4); PROTHROMBIN TIME PATIENT 44.7 SEC (12.2-14.7)
[2022-05-23 05:44] LABS: ALBUMIN 3.4 GM/DL (3.2-4.5); POTASSIUM 4.7 MMOL/L (3.6-5.0)
[2022-05-23 05:46] LABS: CALCIUM 8.8 MG/DL (8.5-10.1)
[2022-05-23 05:49] LABS: BILIRUBIN,TOTAL 0.3 MG/DL (0.1-1.0)
[2022-05-23 05:50] LABS: CREATININE SERUM 1.44 MG/DL (0.60-1.30)
[2022-05-23 05:53] LABS: MAGNESIUM 1.7 MG/DL (1.6-2.4)
[2022-05-23 06:20] LABS: ATYPICAL LYMPHOCYTES 1 %; LYMPHOCYTES % (MANUAL) 9 %; MONOCYTES % (MANUAL) 4 %; NEUTROPHILS % (MANUAL) 86 %
[2022-05-23 06:21] LABS: MICROCYTOSIS SLIGHT; POLYCHROMASIA SLIGHT
[2022-05-23] MEDS: inSUlin ASPART (NovoLOG) 1 UNIT/0.01 ML (CHARGE PER UNIT) SC SCH ×4 (06:28→20:36)
[2022-05-23 07:33] LABS: ABG BASE EXCESS -5.9 MMOL/L (-2.5-2.5); ABG OXYGEN SATURATION 95 % (94-100); ABG PCO2 34 MMHG (35-45); ABG PH 7.36 (7.37-7.43); ABG PO2 68 MMHG (79-93); ABG TCO2 19.8 MMOL/L (21.0-31.0); INSPIRED O2 30%; VENTILATOR NO
[2022-05-23 07:34] LABS: PATIENT TEMP 36.4
[2022-05-23] MEDS: RT-BUDESONIDE NEBS 0.5 MG/2ML (PULMICORT) AMP INH SCH ×2 (07:36→22:28)
[2022-05-23] MEDS: DOCUSATE SODIUM 100 MG (COLACE) CAP PO SCH ×2 (08:02→20:36)
[2022-05-23] MEDS: methylPREDNISolone 40 MG/ML (Solu-MEDROL) VIAL IV SCH ×2 (08:02→20:36)
[2022-05-23] MEDS: DOXYCYCLINE INJECTION 100 MG in NS (IVPB) 100 ML IV SCH ×2 (08:02→20:36)
[2022-05-23] MEDS: FUROSEMIDE 40 MG/4 ML INJ (LASIX) IVP SCH (08:03)
--- NOTE | 2022-05-23 08:28 | Diagnostic Imaging Report ---
INDICATION: Followup pneumonia. EXAMINATION: Chest on 05/23/2022. COMPARISON: 05/22/2022. FINDINGS: There is cardiomegaly and pulmonary vascular congestion with findings of pulmonary edema, slightly improved from previous imaging. Infiltrates at the bases are suspected. There is a likely small right effusion. No pneumothorax is seen. IMPRESSION: 1. Slight improvement in the diffuse pulmonary edema. 2. Bibasilar atelectasis versus infiltrates with a likely small right effusion. Dictated by: Dictated on workstation # [id number]
--- NOTE | 2022-05-23 09:10 | Tele-ICU Progress Note ---
Subjective Date Seen by a Provider: May 23, 2022 Time Seen by a Provider: 09:10 Subjective/Events-last exam Available chart/vitals/labs/images reviewed. Video assessment done using telemetry ICU camera, rest of exam as per RN. Discussion with the RN, exam as per RN. Hospital course This patient with history of hypertension and right CVA with left TMA paresis and expressive aphasia with the paroxysmal atrial fibrillation admitted with shortness of breath and found to have a acute congestive heart failure which is a new with reduced ejection fraction and possible pneumonia. He required initially BiPAP and subsequently Vapotherm however he continues to have a tachycardia which is sinus currently. Intermittent respiratory distress requiring BiPAP ventilation but he is not tolerating well. Patient is a DNR status per family. The possibility of palliative care reportedly discussed to patient's but she is upset and she does not know what to do. His INR is elevated and warfarin is on hold since 05/22/2022. He will be tried on apixaban starting tomorrow per cardiology. He is afebrile at this time. Review of Systems ROS PER RN Sepsis Event Evaluation Height, Weight, BMI Height: 5'6.00" Weight: 177lbs. 2.0oz. 80.035453ph; 24.78 BMI Method: Focused Exam Lactate Level 05/21/22 13:24: Lactic Acid Level 1.18 Exam Exam Patient acknowledged, consented, and participated in this virtual visit which was conducted using real time audio/video Vital Signs Date Time Temp Pulse Resp B/P (MAP) Pulse Ox O2 Delivery O2 Flow Rate FiO2 05/23/22 08:00 125 13 144/83 97 Vapotherm 40.00 40.00 05/23/22 07:50 Vapotherm 40.00 40.00 05/23/22 07:38 98 Vapotherm 5.00 40 05/23/22 07:00 111 05/23/22 07:00 111 21 129/77 100 Nasal Cannula 5.00 05/23/22 06:00 140 14 108/91 98 Nasal Cannula 5.00 05/23/22 05:00 129 10 104/87 98 Nasal Cannula 5.00 05/23/22 04:00 NIV Bilevel 40 05/23/22 04:00 135 14 113/69 97 Nasal Cannula 5.00 05/23/22 04:00 36.4 05/23/22 03:00 114 28 127/78 98 Nasal Cannula 5.00 05/23/22 02:30 111 17 99 30.00 05/23/22 02:00 109 22 129/77 97 Nasal Cannula 5.00 05/23/22 01:01 113 05/23/22 01:00 112 13 127/73 97 Nasal Cannula 5.00 05/23/22 00:16 36.3 05/23/22 00:00 117 20 133/75 98 Nasal Cannula 5.00 05/22/22 23:59 NIV Bilevel 40 05/22/22 23:00 115 17 118/63 98 Nasal Cannula 5.00 05/22/22 22:34 114 23 99 30.00 05/22/22 22:00 121 13 120/74 98 Nasal Cannula 5.00 05/22/22 21:00 129 17 100/65 98 Nasal Cannula 5.00 05/22/22 20:29 129 15 97 30.00 05/22/22 20:00 36.4 05/22/22 20:00 140 17 125/78 96 Nasal Cannula 5.00 05/22/22 20:00 NIV Bilevel 40 05/22/22 19:01 127 05/22/22 19:00 117 17 117/65 98 Nasal Cannula 5.00 05/22/22 18:37 97 5.00 05/22/22 18:00 121 17 128/78 91 Nasal Cannula 5.00 05/22/22 17:11 36.2 05/22/22 16:57 Nasal Cannula 5.00 05/22/22 16:13 NIV Bilevel 40 05/22/22 16:00 112 21 135/70 97 NIV Bilevel 40.00 05/22/22 15:00 103 27 125/75 97 NIV Bilevel 40.00 05/22/22 14:43 104 15 98 30.00 05/22/22 14:00 101 11 125/69 97 NIV Bilevel 40.00 05/22/22 13:00 99 9 127/85 97 NIV Bilevel 40.00 05/22/22 12:34 112 05/22/22 12:33 NIV Bilevel 40 05/22/22 12:00 105 15 112/76 94 NIV Bilevel 40.00 05/22/22 12:00 36.5 05/22/22 11:00 101 10 129/85 94 NIV Bilevel 40.00 05/22/22 10:45 111 20 95 30.00 05/22/22 10:00 112 143/85 94 NIV Bilevel 40.00 I & O 05/23/22 07:00 Intake Total 555 ml Output Total 2325 ml Balance -1770 ml Height & Weight Height: 5'6.00" Weight: 177lbs. 2.0oz. 80.625005bg; 24.78 BMI Method: General Appearance: No Apparent Distress HEENT: PERRL/EOMI, Normal ENT Inspection, Pharynx Normal, Moist Mucous Membranes Neck: Full Range of Motion, Normal Inspection, Non Tender Respiratory: Chest Non Tender, Lungs Clear, Normal Breath Sounds, No Accessory Muscle Use, No Respiratory Distress Cardiovascular: Regular Rate, Rhythm, No Edema, No Gallop, No JVD, No Murmur, Normal Peripheral Pulses Capillary Refill: Less Than 3 Seconds Extremity: Normal Capillary Refill, Normal Inspection, Normal Range of Motion, Non Tender, No Calf Tenderness, No Pedal Edema Neurologic/Psychiatric: Alert, Oriented x3, No Motor/Sensory Deficits, Normal Mood/Affect, Aphasia (Partial type), Facial Droop, Motor Weakness Skin: Normal Color, Warm/Dry Lymphatic: No Adenopathy Other comments PE PER RN Results Lab Laboratory Tests 05/21/22 13:24 05/22/22 04:47 05/23/22 05:00 Assessment/Plan Assessment/Plan 1. Paroxysmal atrial fibrillation with intermittent rapid ventricular rate b eing addressed by the cardiology service Possible pneumonia with acute hypoxic respiratory failure 3. Cardiomyopathy etiology not clear but he is not an ideal candidate to do a ischemic work-up. 4. Acute kidney injury superimposed on chronic kidney disease. 5. Acute on chronic respiratory failure with hypoxemia due to combination of heart failure and possibly pneumonia. 6. History of CVA with expressive aphasia. 7. DNR status. Recommendations 1. Control of the heart rate and congestive heart failure treatment per cardiology 2. Continue IV antibiotic therapy 3. Oxygenation fernandes we will continue intermittent BiPAP and Vapotherm and he is a DNR/DNI status per family. 4. DVT prophylaxis with apixaban per cardiology. 5. Prognosis is poor 6. Video visit made and discussed with the patient's . Critical Care: Critically Ill Patient Time spent with patient (mins): 25 CHRIS ESPINO MD May 23, 2022 09:10
--- NOTE | 2022-05-23 09:36 | Cardiology Progress Note ---
Progress Note-Cardiology Events since last exam Date Seen by Provider: May 23, 2022 Time Seen by Provider: 09:33 Events since last exam I am following him due to atrial fibrillation and heart failure. He remains in the intensive care unit on BiPAP. His has made him DNR. I did speak with his who was at the bedside. I am not able to obtain any history from the patient due to his chronic expressive aphasia as well as being on BiPAP. His nurse tells me that he has been having intermittent issues with tachycardia. Certain portions of this document may have been dictated utilizing voice recognition technology. Inherent to this technology, typographical and grammatical errors may exist. As much as I am diligent to identify and correct these mistakes, some errors may remain in the document. Vitals Last set of Vitals Signs Vital Signs 05/23/22 05/23/22 05/23/22 04:00 08:00 09:13 Temp 36.4 Resp 13 O2 Delivery NIV Bilevel O2 Flow Rate 30.00 FiO2 40 Labs Labs Laboratory Tests 05/23/22 05:00 Exam Vital Signs Vital Signs Date Time Temp Pulse Resp B/P (MAP) Pulse Ox O2 Delivery O2 Flow Rate FiO2 05/23/22 09:13 NIV Bilevel 30.00 05/23/22 09:00 140 144/83 92 05/23/22 08:00 13 05/23/22 08:00 40 05/23/22 04:00 36.4 Physical Exam General: Awake on BiPAP. Following commands. Eye: No xanthelasma. HENT: Normocephalic. Neck: Jugular venous pressure does not appear elevated. Respiratory: Lungs have coarse upper airway sounds due to BiPAP. Respirations are non-labored. Breath sounds are equal. Symmetrical chest wall expansion. Cardiovascular: Tachycardia with a regular rhythm. Distant S1/S2. No murmur. No gallop. No edema. Gastrointestinal: Soft. Normal bowel sounds. Skin: Warm. Dry. Neurologic: Difficult to assess orientation due to expressive aphasia. Cranial nerves 3-11 grossly intact. Chronic left hemiparesis. Psychiatric: He appears anxious at times on the BiPAP. Labs Laboratory Tests Test 05/22/22 12:14 05/22/22 16:05 05/22/22 22:00 05/23/22 05:00 Range/Units Glucometer 210 H 198 H 321 H 70-110 MG/DL White Blood Count 5.9 4.3-11.0 10^3/uL Red Blood Count 3.37 L 4.30-5.52 10^6/uL Hemoglobin 10.3 L 13.3-17.7 g/dL Hematocrit 34 L 40-54 % Mean Corpuscular Volume 100 H 80-99 fL Mean Corpuscular Hemoglobin 31 25-34 pg Mean Corpuscular Hemoglobin Concent 31 L 32-36 g/dL Red Cell Distribution Width 13.2 10.0-14.5 % Platelet Count 279 130-400 10^3/uL Mean Platelet Volume 10.5 9.0-12.2 fL Immature Granulocyte % (Auto) 0 % Neutrophils (%) (Auto) 86 H 42-75 % Lymphocytes (%) (Auto) 9 L 12-44 % Monocytes (%) (Auto) 5 0-12 % Eosinophils (%) (Auto) 0 0-10 % Basophils (%) (Auto) 0 0-10 % Neutrophils # (Auto) 5.1 1.8-7.8 10^3/uL Lymphocytes # (Auto) 0.5 L 1.0-4.0 10^3/uL Monocytes # (Auto) 0.3 0.0-1.0 10^3/uL Eosinophils # (Auto) 0.0 0.0-0.3 10^3/uL Basophils # (Auto) 0.0 0.0-0.1 10^3/uL Immature Granulocyte # (Auto) 0.0 0.0-0.1 10^3/uL Neutrophils % (Manual) 86 % Lymphocytes % (Manual) 9 % Monocytes % (Manual) 4 % Atypical Lymphocytes 1 % Polychromasia SLIGHT Microcytosis SLIGHT Prothrombin Time 44.7 H 12.2-14.7 SEC INR Comment 4.7 H 0.8-1.4 Sodium Level 138 135-145 MMOL/L Potassium Level 4.7 3.6-5.0 MMOL/L Chloride Level 107 98-107 MMOL/L Carbon Dioxide Level 17 L 21-32 MMOL/L Anion Gap 14 5-14 MMOL/L Blood Urea Nitrogen 33 H 7-18 MG/DL Creatinine 1.44 H 0.60-1.30 MG/DL Estimat Glomerular Filtration Rate 47 BUN/Creatinine Ratio 23 Glucose Level 269 H 70-105 MG/DL Calcium Level 8.8 8.5-10.1 MG/DL Corrected Calcium 9.3 8.5-10.1 MG/DL Magnesium Level 1.7 1.6-2.4 MG/DL Total Bilirubin 0.3 0.1-1.0 MG/DL Aspartate Amino Transf (AST/SGOT) 13 5-34 U/L Alanine Aminotransferase (ALT/SGPT) 9 0-55 U/L Alkaline Phosphatase 59 40-136 U/L Total Protein 7.0 6.4-8.2 GM/DL Albumin 3.4 3.2-4.5 GM/DL Test 05/23/22 05:30 Range/Units Blood Gas Puncture Site NA Blood Gas Patient Temperature 36.4 Arterial Blood pH 7.36 L 7.37-7.43 Arterial Blood Partial Pressure CO2 34 L 35-45 MMHG Arterial Blood Partial Pressure O2 68 L 79-93 MMHG Arterial Blood HCO3 19 L 23-27 MMOL/L Arterial Blood Total CO2 19.8 L 21.0-31.0 MMOL/L Arterial Blood Oxygen Saturation 95 94-100 % Arterial Blood Base Excess -5.9 L -2.5-2.5 MMOL/L Av Test NA Blood Gas Ventilator Setting NO Blood Gas Inspired Oxygen 30% Diagnosis/Problems Diagnosis/Problems (1) Paroxysmal atrial fibrillation Assessment & Plan: His does not recall him ever being told he had atrial fibrillation although the fact that he has been on warfarin and had a previous stroke is suspicious for previous history of atrial fibrillation. He has had some recent difficulty controlling his INRs although he has been on antibiotics several times over the past few months. I gave him a reduced dose of warfarin on 05/22 due to elevated INR. His INR is even higher today. I would suggest that we change his warfarin over to apixaban. I have ordered this to start on 05/24. He will need to be on the lower dose due to age over 80 and GFR that hovers around 50. The guidelines for reduced dosing go by creatinine clearance but this is typically similar to the GFR. (2) Acute heart failure with reduced ejection fraction and diastolic dysfunction Assessment & Plan: He has moderate left ventricular systolic dysfunction with evidence of grade 1 diastolic dysfunction. His family does not know of any previous history of heart failure. He has been ordered for intravenous furosemide. We will need to watch his renal function closely. I will also attempt to get him on the appropriate guideline directed medical therapy. We may be somewhat limited by low blood pressures. (3) Cardiomyopathy Assessment & Plan: This is also a new finding in the patient. Exact etiology unclear. We will attempt to initiate guideline directed medical therapy as above. Given his advanced age and history of stroke with chronic expressive aphasia and left-sided hemiparesis, he is not an ideal candidate for an ischemic evaluation. His ejection fraction is just above the cutoff for recommending a LifeVest. (4) Primary hypertension Assessment & Plan: He has a history of hypertension but has not been on antihypertensive medication in the recent past. We will monitor his blood pres sures closely while we attempt to get him on the guideline directed medical therapy for heart failure. (5) Acute kidney injury superimposed on chronic kidney disease Assessment & Plan: His creatinine has gone up slightly since starting the intravenous furosemide. We will need to watch this closely. If the creatinine continues to rise, we may need to stop the intravenous furosemide. (6) Mitral regurgitation Assessment & Plan: His echocardiogram shows moderate mitral regurgitation. This could also be contributing to the heart failure. (7) Mixed hyperlipidemia Assessment & Plan: He is on low-dose statin medication at home which has been ordered. (8) Acute on chronic respiratory failure with hypoxemia Assessment & Plan: Most likely multifactorial due to pneumonia with superimposed heart failure. (9) Normocytic anemia Assessment & Plan: He appears to have a chronic normocytic anemia of unknown etiology. (10) History of cerebrovascular accident with residual deficit Assessment & Plan: He has chronic left-sided hemiparesis and expressive aphasia ever since his stroke in 2011. He does not appear to have any new neurologic deficits. (11) Type 2 diabetes mellitus with complication Assessment & Plan: This is being managed by the hospitalist. KRISTEL PEREZ JR, MD May 23, 2022 09:36
[2022-05-23 11:09] VITALS: BP 142/80
--- NOTE | 2022-05-23 13:56 | Occupational Therapy Eval ---
OT Evaluation-General/PLF Medical Diagnosis Admission Date May 21, 2022 at 15:46 Medical Diagnosis: Afib with RVR Onset Date: May 21, 2022 Therapy Diagnosis Therapy Diagnosis: dependent adls Height/Weight Height (Feet): 5 Height (Inches): 6.00 Weight (Pounds): 177 Weight (Ounces): 2.0 Precautions Precautions/Isolations: Fall Prevention, Standard Precautions Medical History Pertinent Medical History: Atrial Fib, Arthritis, COPD, CVA, DM, GERD Additional Medical History expressive aphasia Current History Pt presented to hospital with c/o palpitations. Found to be in A-fib w/RVR, pneumonia and pulmonary edema. Due to Bipap and expressive aphasia, provides all PLOF. Pt lives in a single story home with his . His has been his caregiver (he is dependent for all adls) for the last 10 years. She reports that he uses either a urinal or bed arndt. She is able to transfer him to the side of the bed and into a wheelchair where he resides until the end of the day. At bedtime, his son helps transfer pt back to bed. Reviewed History: Yes Social History Home: Single Level Current Living Status: Spouse ADL-Prior Level of Function SCALE: Activities may be completed with or without assistive devices. 3-Vcjnzkluyv-pfbiqkl completes the activity by him/herself with no assistance from a helper. 5-Set-up or Clean-up Assistance-helper sets up or cleans up; patient completes activity. [place] assists only prior to or following the activity. 4-Supervision or Touching Assistance-helper provides verbal cues and/or touching/steadying and/or contact guard assistance as patient completes activ ity. Assistance may be provided throughout the activity or intermittently. 3-Partial/Moderate Assistance-helper does LESS THAN HALF the effort. [place] lifts, holds or supports trunk or limbs, but provides less than half the effort. 2-Substantial/Maximal Assistance-helper does MORE THAN HALF the effort. [place] lifts or holds trunk or limbs and provides more than half the effort. 8-Qaknszdov-nquxnz does ALL the effort. Patient does none of the effort to complete the activity. Or, the assistance of 2 or more helpers is required for the patient to complete the activity. If activity was not attempted, code reason: 7-Patient Refused. 9-Not Applicable-not attempted and the patient did not perform the activity before the current illness, exacerbation or injury. 10-Not Attempted due to Environmental Limitations-(lack of equipment, weather restraints, etc.). 88-Not Attempted due to Medical Conditions or Safety Concerns. Self Care: Dependent Functional Cognition: Dependent Drive Self: No OT Current Status Subjective Pt points to L shoulder when asked about pain. Appearance Pt returned to supine in bed, all needs within reach, and son in room. Mental Status/Objective Patient Orientation: Person Attachments: Hair Catheter, IV, Oxygen (Bipap), Telemetry Current Hand Dominance: Right Upper Extremity ROM RUE WNL no functional use of LUE (baseline for >5 years), atrophy notable throughout entire limb. Upper Extremity Strength RUE: 3+/5 ADL-Treatment On/Off Footwear (QC): 1 Toileting Hygiene (QC): 1 Pt reclined in bed at therapy arrival. Pt's spouse is very apprehensive about moving patient. With encouragement and education, both patient and agreeable to sit EOB. Max a required as pt needed assist with transferring BLE's and elevating torso. Poor sitting balance at edge of bed needing mod a to maintain upright posture. He fatigues very quickly and only able to tolerate unsupported sitting for very brief moments. Dependent to return to supine. His reports that he has been dependent for adls the last 10 years. Education provided on positioning in effort to prevent pressure wounds. No further OT services warranted at this time as pt is at baseline for self cares. Education OT Patient Education: Correct positioning, Modified ADL techniques, Purpose of tx/functional activities, Safety issues, Transfer techniques Teaching Recipient: Patient, Family Teaching Methods: Demonstration, Discussion Response to Teaching: Verbalize Understanding, Return Demonstration, Reinforcement Needed OT Mcfp Goals Entertainment Director Goals 1=Demonstrate adherence to instructed precautions during ADL tasks. 2=Patient will verbalize/demonstrate understanding of assistive devices/modifications for ADL. 3=Patient will improve strength/tolerance for activity to enable patient to perform ADL's. OT Education/Plan Problem List/Assessment Assessment: No Skilled OT Needs ID'd Discharge Recommendations Plan/Recommendations: Discontinue OT Therapy Discharge Recommendati: Scheduled Assistance, Home & Family Comment return home with support. Pt/ could benefit from scheduled assistance throughout the day in effort to reduce burden of care on spouse. Treatment Plan/Plan of Care Treatment,Training & Education: Yes Patient would benefit from OT for education, treatment and training to promote independence in ADL's, mobility, safety and/or upper extremity function for ADL's. Plan of Care: Caregiver Training, Functional Mobility Treatment Duration: May 23, 2022 Frequency: 1 time per week Estimated Hrs Per Day: .25 hour per day Agreement: Yes Rehab Potential: Poor Time/GCodes Start Time: 13:25 Stop Time: 13:39 Total Time Billed (hr/min): 14 Billed Treatment Time 1 visit Shelby White OT May 23, 2022 13:56
--- NOTE | 2022-05-23 13:58 | Physical Therapy Evaluation ---
PT Evaluation-General Medical Diagnosis Admission Date May 21, 2022 at 15:46 Medical Diagnosis: acute resp distress, Afib Onset Date: May 21, 2022 Therapy Diagnosis Therapy Diagnosis: impaired mobility Height/Weight Height (Feet): 5 Height (Inches): 6.00 Weight (Pounds): 177 Weight (Ounces): 2.0 Precautions Precautions/Isolations: Fall Prevention, Standard Precautions Referral Physician: Elsie Buchanan DO Reason for Referral: Evaluation/Treatment Medical History Pertinent Medical History: CVA Additional Medical History Past Medical History Surgeries: Vasectomy Pneumonia, COPD Currently Using CPAP: No Currently Using BIPAP: No Atrial Fibrillation, Hypertension Stroke Prostate Problems Gastroesophageal Reflux Arthritis Diabetes, Non-Insulin dep Depression Reviewed History: Yes Social History Current Living Status: Spouse Prior Prior Level of Function SCALE: Activities may be completed with or without assistive devices. 5-Gpxkmriibh-pituror completes the activity by him/herself with no assistance from a helper. 5-Set-up or Clean-up Assistance-helper sets up or cleans up; patient completes activity. Call assists only prior to or following the activity. 4-Supervision or Touching Assistance-helper provides verbal cues and/or touching/steadying and/or contact guard assistance as patient completes activity. Assistance may be provided throughout the activity or intermittently. 3-Partial/Moderate Assistance-helper does LESS THAN HALF the effort. Call lifts, holds or supports trunk or limbs, but provides less than half the effort. 2-Substantial/Maximal Assistance-helper does MORE THAN HALF the effort. Call l ifts or holds trunk or limbs and provides more than half the effort. 9-Xrigcbvcb-yyiswc does ALL the effort. Patient does none of the effort to complete the activity. Or, the assistance of 2 or more helpers is required for the patient to complete the activity. If activity was not attempted, code reason: 7-Patient Refused. 9-Not Applicable-not attempted and the patient did not perform the activity before the current illness, exacerbation or injury. 10-Not Attempted due to Environmental Limitations-(lack of equipment, weather restraints, etc.). 88-Not Attempted due to Medical Conditions or Safety Concerns. Bed Mobility: 1 Transfers (B,C,W/C): 1 Patient is dependent on care from spouse. She says he can bear some weight on his legs when transferring from bed to but any other transfer has to be performed by their son. Patient doesn't ambulate. PT Evaluation-Current Subjective Patient in bed pre tx, agrees to PT with encouragement, has no complaints of pain. Patient has a bipap on but can nod yes or shake head no. Pt/Family Goals none stated Objective Patient Orientation: Person, Unable to Assess, Non-Verbal/Aphasic Attachments: SCD's, Oxygen (bipap), Hair Catheter ROM/Strength ROM Lower Extremities limited Strength Lower Extremities grossly 0/5 in LLE, 3/5 RLE Sensory Hearing: Functional Transfers Roll Left to Right (QC): 1 Sit to Lying (QC): 1 Lying to Sitting/Side of Bed(Q: 1 Assist of 2 to sit to the side of the bed, once there patient could maintain sitting balance with min assist, was able to sit for a few minutes before patient indicates that he needs to lay back down, O2 remained in mid to upper 90's and HR stayed in 120's. Balance Sitting Static: Poor Sitting Dynamic: Poor Treatment RLE LAQ x10 Assessment/Needs Patient in bed post tx with nurse call, phone, tray, family in room. Patient has impaired mobility, strength, endurance, balance. He is dependent for mobility. Rehab Potential: Poor PT Custodial Goals Yield Clerk Goals PT Yield Clerk Goals Time Frame: May 30, 2022 Roll Left & Right (QC): 2 Sit to Lying (QC): 2 Lying-Sitting on Side/Bed(QC): 2 Sit to Stand (QC): 2 Chair/Hkh-nq-Zszhg Xfer(QC): 2 PT Plan Problem List Problem List: Activity Tolerance, Functional Strength, Safety, Balance, Gait, Transfer, Bed Mobility, ROM Treatment/Plan Treatment Plan: Continue Plan of Care Treatment Plan: Bed Mobility, Education, Functional Activity Don, Functional Strength, Gait, Safety, Therapeutic Exercise, Transfers Treatment Duration: May 30, 2022 Frequency: 6 times per week Estimated Hrs Per Day: .25 hour per day Patient and/or Family Agrees t: Yes Safety Risks/Education Patient Education: Correct Positioning, Safety Issues Teaching Recipient: Patient Teaching Methods: Demonstration, Discussion Response to Teaching: Reinforcement Needed Discharge Recommendations Plan Patient will perform bed mobility and transfer training, balance and endurance training functional strengthening, and education, to improve functional mobility and independence at home. Therapy Discharge Recommendati: Scheduled Assistance, Home & Family, Post Acute PT Time/GCodes Time In: 1325 Time Out: 1340 Total Billed Treatment Time: 15 Total Billed Treatment 1 visit SMITHA Charles' DELFINO RODRÍGUEZ PT May 23, 2022 13:58
[2022-05-23 15:04] VITALS: BP 126/111
[2022-05-23] MEDS ORDERED: warFARin 2 MG (COUMADIN) TAB PO SCH (18:00)
[2022-05-23 18:30] VITALS: BP 113/95
[2022-05-23] MEDS: AtorvaSTATin TABLET 10 MG TABLET PO SCH (20:36)
[2022-05-23 22:27] VITALS: BP 138/120
[2022-05-23 22:31] VITALS: BP 138/120
[2022-05-24] MEDS: CEFEPIME INJECTION 1,000 MG in NS (IVPB) 50 ML IV SCH (00:51)
[2022-05-24] MEDS: RT-ALBUTEROL/IPRATROPIUM 3 ML (DUONEB) VIAL INH SCH ×4 (01:46→15:34)
[2022-05-24 01:47] VITALS: BP 142/80
[2022-05-24] MEDS: meTOprolol 5 MG/5 ML (LOPRESSOR) VIAL IV PRN (01:50)
[2022-05-24 05:56] LABS: BASOPHILS % (AUTO) 0 % (0-10); EOSINOPHILS % (AUTO) 0 % (0-10); HEMATOCRIT 37 % (40-54); HEMOGLOBIN 11.1 g/dL (13.3-17.7); LYMPHOCYTES # (AUTO) 1.4 10^3/uL (1.0-4.0); LYMPHOCYTES % (AUTO) 15 % (12-44); MEAN CORPUSCULAR HEMOGLOBIN 30 pg (25-34); MEAN CORPUSCULAR HGB CONC 30 g/dL (32-36); MEAN CORPUSCULAR VOLUME 101 fL (80-99); MEAN PLATELET VOLUME 10.4 fL (9.0-12.2); MONOCYTES # (AUTO) 0.8 10^3/uL (0.0-1.0); MONOCYTES % (AUTO) 9 % (0-12); NEUTROPHILS # (AUTO) 7.6 10^3/uL (1.8-7.8); NEUTROPHILS % (AUTO) 76 % (42-75); PLATELET COUNT 296 10^3/uL (130-400); WHITE BLOOD COUNT 9.9 10^3/uL (4.3-11.0)
[2022-05-24 06:10] LABS: ALBUMIN 3.4 GM/DL (3.2-4.5); POTASSIUM 4.4 MMOL/L (3.6-5.0)
[2022-05-24 06:14] LABS: BILIRUBIN,TOTAL 0.3 MG/DL (0.1-1.0)
[2022-05-24 06:15] LABS: PHOSPHORUS 3.7 MG/DL (2.3-4.7)
[2022-05-24 06:16] LABS: CREATININE SERUM 1.42 MG/DL (0.60-1.30)
[2022-05-24 06:19] LABS: MAGNESIUM 1.7 MG/DL (1.6-2.4)
[2022-05-24] MEDS: inSUlin ASPART (NovoLOG) 1 UNIT/0.01 ML (CHARGE PER UNIT) SC SCH (06:38)
[2022-05-24] MEDS: ONDANSETRON 4 MG/2 ML (SDV) Z0FRAN IV PRN (06:39)
[2022-05-24] MEDS: RT-BUDESONIDE NEBS 0.5 MG/2ML (PULMICORT) AMP INH SCH (06:55)
[2022-05-24] MEDS: methylPREDNISolone 40 MG/ML (Solu-MEDROL) VIAL IV SCH (08:12)
[2022-05-24] MEDS: FUROSEMIDE 40 MG/4 ML INJ (LASIX) IVP SCH (08:12)
[2022-05-24] MEDS: DOCUSATE SODIUM 100 MG (COLACE) CAP PO SCH (08:12)
[2022-05-24] MEDS: DOXYCYCLINE INJECTION 100 MG in NS (IVPB) 100 ML IV SCH (08:21)
--- NOTE | 2022-05-24 08:56 | Cardiology Progress Note ---
Progress Note-Cardiology Events since last exam Date Seen by Provider: May 24, 2022 Time Seen by Provider: 08:55 Events since last exam I am following him due to atrial fibrillation and heart failure. He remains in the intensive care unit. This morning he vomited in his BiPAP mask and the device was removed. When I saw him, he was laying in bed on nasal cannula oxygen. His is at the bedside. He denied chest pain, dyspnea at rest, palpitations, syncope, or ankle edema. Certain portions of this document may have been dictated utilizing voice recognition technology. Inherent to this technology, typographical and grammatical errors may exist. As much as I am diligent to identify and correct these mistakes, some errors may remain in the document. Vitals Last set of Vitals Signs Vital Signs 05/24/22 05/24/22 05/24/22 05/24/22 04:00 08:00 09:00 11:21 Temp 36.2 Pulse 109 Resp 20 B/P (MAP) 129/83 Pulse Ox 95 O2 Delivery Nasal Cannula O2 Flow Rate 6.00 FiO2 40 Labs Labs Laboratory Tests 05/24/22 05:17 Exam Vital Signs Vital Signs Date Time Temp Pulse Resp B/P (MAP) Pulse Ox O2 Delivery O2 Flow Rate FiO2 05/24/22 11:21 95 Nasal Cannula 6.00 05/24/22 09:00 109 20 129/83 05/24/22 08:00 36.2 05/24/22 04:00 40 Physical Exam General: Awake and alert. Following commands. Eye: No xanthelasma. HENT: Normocephalic. Neck: Jugular venous pressure does not appear elevated. Respiratory: Lungs have scattered rhonchi. Respirations are non-labored. Breath sounds are equal. Symmetrical chest wall expansion. Cardiovascular: Normal rate with irregular rhythm. Distant S1/S2. No murmur. No gallop. No edema. Gastrointestinal: Soft. Normal bowel sounds. Skin: Warm. Dry. Neurologic: Oriented to person only but he does know yesterday was May 23. Cranial nerves 3-11 grossly intact. Chronic left hemiparesis. Psychiatric: Cooperative. Pleasant affect. Labs Laboratory Tests Test 05/23/22 15:42 05/23/22 20:23 05/24/22 05:17 Range/Units Glucometer 252 H 179 H 70-110 MG/DL White Blood Count 9.9 4.3-11.0 10^3/uL Red Blood Count 3.67 L 4.30-5.52 10^6/uL Hemoglobin 11.1 L 13.3-17.7 g/dL Hematocrit 37 L 40-54 % Mean Corpuscular Volume 101 H 80-99 fL Mean Corpuscular Hemoglobin 30 25-34 pg Mean Corpuscular Hemoglobin Concent 30 L 32-36 g/dL Red Cell Distribution Width 13.3 10.0-14.5 % Platelet Count 296 130-400 10^3/uL Mean Platelet Volume 10.4 9.0-12.2 fL Immature Granulocyte % (Auto) 0 % Neutrophils (%) (Auto) 76 H 42-75 % Lymphocytes (%) (Auto) 15 12-44 % Monocytes (%) (Auto) 9 0-12 % Eosinophils (%) (Auto) 0 0-10 % Basophils (%) (Auto) 0 0-10 % Neutrophils # (Auto) 7.6 1.8-7.8 10^3/uL Lymphocytes # (Auto) 1.4 1.0-4.0 10^3/uL Monocytes # (Auto) 0.8 0.0-1.0 10^3/uL Eosinophils # (Auto) 0.0 0.0-0.3 10^3/uL Basophils # (Auto) 0.0 0.0-0.1 10^3/uL Immature Granulocyte # (Auto) 0.0 0.0-0.1 10^3/uL Sodium Level 139 135-145 MMOL/L Potassium Level 4.4 3.6-5.0 MMOL/L Chloride Level 106 98-107 MMOL/L Carbon Dioxide Level 19 L 21-32 MMOL/L Anion Gap 14 5-14 MMOL/L Blood Urea Nitrogen 38 H 7-18 MG/DL Creatinine 1.42 H 0.60-1.30 MG/DL Estimat Glomerular Filtration Rate 48 BUN/Creatinine Ratio 27 Glucose Level 266 H 70-105 MG/DL Calcium Level 9.0 8.5-10.1 MG/DL Corrected Calcium 9.5 8.5-10.1 MG/DL Phosphorus Level 3.7 2.3-4.7 MG/DL Magnesium Level 1.7 1.6-2.4 MG/DL Total Bilirubin 0.3 0.1-1.0 MG/DL Aspartate Amino Transf (AST/SGOT) 16 5-34 U/L Alanine Aminotransferase (ALT/SGPT) 12 0-55 U/L Alkaline Phosphatase 56 40-136 U/L Total Protein 7.0 6.4-8.2 GM/DL Albumin 3.4 3.2-4.5 GM/DL Diagnosis/Problems Diagnosis/Problems (1) Paroxysmal atrial fibrillation Assessment & Plan: His does not recall him ever being told he had atrial fibrillation although the fact that he has been on warfarin and had a previous stroke is suspicious for previous history of atrial fibrillation. He has had some recent difficulty controlling his INRs although he has been on antibiotics several times over the past few months. I gave him a reduced dose of warfarin on 05/22 due to elevated INR. His INR was even higher on 05/23. I changed his warfarin over to apixaban. I ordered this to start on 05/24. He will need to be on the lower dose due to age over 80 and creatinine just around 1.5. (2) Acute heart failure with reduced ejection fraction and diastolic dysfunction Assessment & Plan: He has moderate left ventricular systolic dysfunction with evidence of grade 1 diastolic dysfunction. His family does not know of any previous history of heart failure. He has been ordered for intravenous furosemide. We will need to watch his renal function closely. I will also attempt to get him on the appropriate guideline directed medical therapy. We may be somewhat limited by low blood pressures and marginal renal function. (3) Cardiomyopathy Assessment & Plan: This is also a new finding in the patient. Exact etiology unclear. We will attempt to initiate guideline directed medical therapy as above. Given his advanced age and history of stroke with chronic expressive aphasia and left-sided hemiparesis, he is not an ideal candidate for an ischemic evaluation. His ejection fraction is just above the cutoff for recommending a LifeVest. (4) Primary hypertension Assessment & Plan: He has a history of hypertension but has not been on antihy pertensive medication in the recent past. We will monitor his blood pressures closely while we attempt to get him on the guideline directed medical therapy for heart failure. (5) Acute kidney injury superimposed on chronic kidney disease Assessment & Plan: His creatinine has gone up slightly since starting the intravenous furosemide. We will need to watch this closely. If the creatinine continues to rise, we may need to stop the intravenous furosemide. (6) Mitral regurgitation Assessment & Plan: His echocardiogram shows moderate mitral regurgitation. This could also be contributing to the heart failure. (7) Mixed hyperlipidemia Assessment & Plan: He is on low-dose statin medication at home which has been ordered. (8) Acute on chronic respiratory failure with hypoxemia Assessment & Plan: Most likely multifactorial due to pneumonia with superimposed heart failure. (9) Normocytic anemia Assessment & Plan: He appears to have a chronic normocytic anemia of unknown et iology. (10) History of cerebrovascular accident with residual deficit Assessment & Plan: He has chronic left-sided hemiparesis and expressive aphasia ever since his stroke in 2011. He does not appear to have any new neurologic deficits. (11) Type 2 diabetes mellitus with complication Assessment & Plan: This is being managed by the hospitalist. (12) Frailty Assessment & Plan: And clinical status and age, I would consider him moderately frail. This needs to be kept in mind in regards to long-term treatment and goals. KRISTEL PEREZ JR, MD May 24, 2022 08:56
[2022-05-24] MEDS ORDERED: APIXABAN 2.5 MG (ELIQUIS) TABLET PO SCH (09:00)
--- NOTE | 2022-05-24 09:39 | Physical Therapy Progress Note ---
Therapy Progress Note Patient on Hold per RN due to decline in status. Will recheck tomorrow. MARLON BROWER PT May 24, 2022 09:39
--- NOTE | 2022-05-24 09:47 | Progress Note ---
Subjective Subjective/Events-last exam and son at bedside and provide history. Pt was started on cefdinir last week by primary for concern of pneumonia after he went in due to shortness of breath, family had brought him in due to concern about his heart. Overnight he was not tolerating bipap and vomited this morning. A swallow eval is pending. His states he normally speaks at baseline and is coherent, but very difficult to understand, especially for others. Focused Exam Lactate Level 05/21/22 13:24: Lactic Acid Level 1.18 Objective Exam Last Set of Vital Signs Vital Signs Date Time Temp Pulse Resp B/P (MAP) Pulse Ox O2 Delivery O2 Flow Rate FiO2 05/24/22 09:00 109 20 129/83 98 NIV Bilevel 30.00 05/24/22 08:00 36.2 05/24/22 04:00 40 Capillary Refill : Less Than 3 Seconds I&O Intake and Output 05/24/22 00:00 Intake Total 425 ml Output Total 1200 ml Balance -775 ml Intake Oral 275 ml IV Total 150 ml Output Urine Total 1200 ml General: Other (somnolent, awakens to voice) Lungs: Other (rales bilaterally) Heart: Other (irregularly irregular) Abdomen: Normal Bowel Sounds, Other (moderately distended, appears to be ttp diffusely) Extremities: Other (trace peripheral edema) Neuro: Other (opens eyes and turns toward voice, no other interactivity at this time) Results/Procedures Lab Laboratory Tests 05/23/22 11:00: Glucometer 243H 05/23/22 15:42: Glucometer 252H 05/23/22 20:23: Glucometer 179H 05/24/22 05:17: White Blood Count 9.9, Red Blood Count 3.67L, Hemoglobin 11.1L, Hematocrit 37L, Mean Corpuscular Volume 101H, Mean Corpuscular Hemoglobin 30, Mean Corpuscular Hemoglobin Concent 30L, Red Cell Distribution Width 13.3, Platelet Count 296, Mean Platelet Volume 10.4, Immature Granulocyte % (Auto) 0, Neutrophils (%) (Auto) 76H, Lymphocytes (%) (Auto) 15, Monocytes (%) (Auto) 9, Eosinophils (%) (Auto) 0, Basophils (%) (Auto) 0, Neutrophils # (Auto) 7.6, Lymphocytes # (Auto) 1.4, Monocytes # (Auto) 0.8, Eosinophils # (Auto) 0.0, Basophils # (Auto) 0.0, Immature Granulocyte # (Auto) 0.0, Sodium Level 139, Potassium Level 4.4, Ch loride Level 106, Carbon Dioxide Level 19L, Anion Gap 14, Blood Urea Nitrogen 38H, Creatinine 1.42H, Estimat Glomerular Filtration Rate 48, BUN/Creatinine Ratio 27, Glucose Level 266H, Calcium Level 9.0, Corrected Calcium 9.5, Phosphorus Level 3.7, Magnesium Level 1.7, Total Bilirubin 0.3, Aspartate Amino Transf (AST/SGOT) 16, Alanine Aminotransferase (ALT/SGPT) 12, Alkaline Phosphatase 56, Total Protein 7.0, Albumin 3.4 Microbiology 05/21/22 MRSA Screen - Final, Complete MRSA not isolated 05/21/22 Urine Culture - Final, Complete NO GROWTH 05/21/22 Blood Culture - Preliminary, Resulted No growth Assessment/Plan Assessment/Plan (1) Respiratory failure Status: Acute Assessment & Plan: Suspect secondary to pulmonary edema/acute CHF. Lasix being given, appreciate Cardiology recommendations. Also treating with cefepime for possible underlying pneumonia. 05/24- not tolerating bipap, discussed difficulty in managing at this time with family Qualifiers: Qualified Codes: J96.01 - Acute respiratory failure with hypoxia (2) Atrial fibrillation with rapid ventricular response Status: Acute Assessment & Plan: Cardiology consulted, appreciate recommendations. (3) Pulmonary edema Status: Acute Assessment & Plan: Suspect secondary to acute CHF. IV lasix started, but limited by renal function. Appreciate Cardiology recommendations. Qualifiers: Qualified Codes: J81.0 - Acute pulmonary edema (4) Acute heart failure with reduced ejection fraction and diastolic dysfunction Status: Acute Assessment & Plan: EF 35-40% and grade 1 diastolic dysfunction on echo this stay. Attempting guideline directed medical therapy as blood pressure and renal function will allow, appreciate Cardiology recommendations. (5) Acute kidney injury superimposed on chronic kidney disease Status: Acute Assessment & Plan: CKD3b noted on clinic chart with baseline creatinine appearing to be around 1.2 to 1.4. Slight worsening inpatient with lasix administration, monitor closely. (6) Hyponatremia Status: Resolved (7) Hyperkalemia Status: Resolved (8) Paroxysmal atrial fibrillation Status: Chronic (9) Primary hypertension Status: Chronic (10) Type 2 diabetes mellitus with complication Status: Chronic (11) History of cerebrovascular accident with residual deficit Status: Chronic Assessment & Plan: Left hemiparesis, with essentially no function in left arm and only able to hold weight briefly with left leg, no functional use. (12) Mixed hyperlipidemia Status: Chronic (13) DVT prophylaxis Status: Acute Assessment & Plan: On coumadin at home, difficult to manage INR, changed to apixaban. (14) Goals of care, counseling/discussion Status: Acute Assessment & Plan: 05/24- followed up in the afternoon with family- discussed with and son, his worsening condition in spite of treatment and his difficulty tolerating bipap and now without safe swallow as well. does note that she is confident he would not want intubation or code attempt. Wants to discuss with family further if they feel he would want to transition to comfort care now or at some point later should he continue to worsen in spite of treatment. TALI WELLS MD May 24, 2022 09:47
[2022-05-24] MEDS ORDERED: CEFEPIME INJECTION 1,000 MG in NS (IVPB) 50 ML IV SCH (10:00)
[2022-05-24] MEDS ORDERED: CEFD300C3 PO (10:28)
[2022-05-24] MEDS ORDERED: METF-397 PO (10:28)
[2022-05-24] MEDS ORDERED: LORA10TA7 PO (10:28)
[2022-05-24] MEDS ORDERED: FAMO20TA5 PO (10:28)
[2022-05-24] MEDS ORDERED: FLAX100032 PO (10:28)
[2022-05-24] MEDS ORDERED: WRF1T PO (10:28)
[2022-05-24] MEDS ORDERED: ACET-2267 PO (10:28)
[2022-05-24] MEDS ORDERED: ASCO-262 PO (10:28)
[2022-05-24] MEDS ORDERED: GABA-486 PO (10:28)
[2022-05-24] MEDS ORDERED: NIAC1CAP PO (10:28)
[2022-05-24] MEDS ORDERED: MULT-1136 PO (10:28)
[2022-05-24] MEDS ORDERED: VIT-10 PO (10:28)
[2022-05-24] MEDS ORDERED: CHOL20003 PO (10:28)
[2022-05-24] MEDS ORDERED: TMSL.4C PO (10:28)
[2022-05-24] MEDS ORDERED: GUAI120013 PO (11:09)
--- NOTE | 2022-05-24 12:41 | ST Dysphagia Evaluation ---
Speech Evaluation-General Medical Diagnosis Afib with RVR Onset Date: May 21, 2022 Therapy Diagnosis Therapy Diagnosis: Suspected Oropharyngeal Dysphagia Precautions Precautions: Fall, Aspiration Precautions/Isolations: Aspiration, Fall Prevention, Standard Precautions Referral Referring Physician: Dr. Carnes Reason for Referral: Evaluation/Treatment Medical History Pertinent Medical History: Atrial Fib, Arthritis, COPD, CVA, DM, GERD Current History The patient is an 86-year-old male with history of atrial fibrillation, HTN, and stroke, who presented to the ER with complaints of palpitations and was found to have atrial fibrillation, evidence of pneumonia, and pulmonary edema. CXR: 05/23/22: 1. Slight improvement in the diffuse pulmonary edema. 2. Bibasilar atelectasis versus infiltrates with a likely small right effusion. Reviewed History: Yes Social History Current Living Status: Spouse Speech PLF/Current-Dysphagia Prior Level of Function The patient was unable to provide history regarding his current PO intake. Per patient's , the patient consumes a regular consistency diet with thin liquids at home. Per chart review, the clinician noted the patient had received thickened liquids following a stroke ten years prior. The clinician asked the patient's for additional information regarding the thickening, however, she stated the patient has never received a thickening product. However, later in the evaluation, the patient's refers to "the honey thick liquid" the patient "was on right after his stroke." The patient's denied the presence of s/s of suspected aspiration with PO intake. Subjective The patient was lying in bed, awake upon entrance to his room by the clinician. The patient has his and his son at bedside. The patient is currently receiving 6L supplemental O2 via nasal cannula. The clinician positioned the patient upright in bed for safe swallowing. Prior to PO boluses, the patient's Spo2% was 97% and his respirations were 18 bpm. The patient displayed an aphonic vocal quality. Cognitive Status Patient Orientation: Confused, Non-Verbal/Aphasic Oral Motor Skills Dentition: Edentalous Ability to Follow Directions: Poor Oral Expression Ability: Moderate Impairment Voice Voice Phonatory-Based Quality: Breathy, Weak Voice Pitch: Mildly High Voice Loudness: Severely Soft/Quiet Face Facial Symmetry: Symmetrical (At rest.) Oral-Facial Assessment Oral-Facial Dentition: Normal Volitional Dry Swallow: No Voluntary Cough: No Can Clear Throat Volitionally: No Productive Cough: No Productive Throat Clear: No Dysphagia Evaluation Consistencies Presented: Thin Liquid, [place] Thick Liquid, Honey Thick Liquid, Pureed Oral Phase: Reduced Oral Transit The patient was able to minimally round lips around the teaspoon for removal of bolus material into the oral cavity. Anterior spillage was not present. Increased posterior transfer time was present with all consistencies tested. Oral residue was not present following the swallow. Laryngeal elevation upon palpation. The patient elicited two to three pharyngeal swallows per half teaspoon bolus amounts. An open mouth posture was present for a majority of pharyngeal swallows which will reduced oropharyngeal pressure for propulsion into the esophagus. A wet vocal quality was present throughout the evaluation. The patient respirations increased from 18 bpm to 38 bpm through PO bolus trials. Additionally, the patient's SpO2% decreased from 97% SpO2% to 93% SpO2% throughout trials. The patient's oxygen and respirations returned to baseline p rior to the clinician's exit. The patient displayed a delayed, rigorous cough following the swallow with teaspoons of thin liquid and nectar-thick liquid. Following completion of puree trials, the patient displayed a weak throat clear and an increasingly wet vocal quality. Honey-thick liquids were initiated, however, the patient deferred and requested the evaluation to end. Due to the patient's displayed fatigue and the s/s of suspected aspiration, the clinician agrees with the patient's request. Dietary Recommendations: NPO Liquid Recommendations: NPO Recommendations: - NPO. - Frequent and excellent oral care to reduce the transfer of oral bacteria to the lungs should aspiration of oral secretions occur. - Moist swab for oral comfort, as needed. - Crush necessary medication and place in puree for administration. - Speech pathology to re-assess the oropharyngeal swallowing function on 05/25/22 at bedside. The clinician suspects a modified video swallow would be appropriate and recommended prior to the onset of a PO diet if/when the patient is appropriate and medically stable. The clinician discussed the results and recommendations with the patient and the patient's family members immediately following the evaluation. The clinician thoroughly discussed the patient's high risk for aspiration with PO consistencies due to his current high respiratory needs and increased fatigue. The patient's verbalized comprehension, however, the clinician suspects additional education and follow up conversations would be beneficial. The clinician additionally visited with the patient's RN following completion of the assessment with the recommendations. Dysphagia Evaluation Summary The patient displays suspected oropharyngeal dysphagia characterized by decreased lingual coordination and strength, reduced airway protection in the presence of bolus material, increased respiratory effort, and overall high level of fatigue. The patient remains at an elevated aspiration risk with PO intake at this time. Speech Short Term Goals Short Term Goals Short Term Goals 1. The patient, family, and staff will follow safe swallowing strategies with 80% accuracy and mild clinician verbal and visual cueing. Time Frame-STG: Five Days. Speech [facility] Goals Psychologist Developmental Goals 1. The patient will tolerate the least restrictive diet without s/s of suspected aspiration. Time Frame: One Week. Speech-Plan Treatment Plan Speech Therapy Treatment Plan: Continue Plan of Care Treatment Duration: May 31, 2022 Frequency: 3 times per week (Three to four times per week.) Estimated Hrs Per Day: .25 hour per day Rehab Potential: Poor Safety Risks/Education Teaching Recipient: Patient, Significant Other Teaching Methods: Discussion Response to Teaching: Verbalize Understanding, Reinforcement Needed Education Topics Provided: Results, Recommedations, Plan of Care, Aspiration Risks Time Speech Therapy Time In: 10:00 Speech Therapy Time Out: 10:36 Total Billed Time: 36 Billed Treatment Time 1, GRETTA ZHOU [facility] ST May 24, 2022 12:41
[2022-05-24] MEDS ORDERED: inSUlin ASPART (NovoLOG) 1 UNIT/0.01 ML (CHARGE PER UNIT) ONE (13:24)
[2022-05-24] MEDS ORDERED: GLYCOPYRROLATE 0.2 MG/ML (ROBINUL) 2 ML VIAL IV PRN (16:00)
[2022-05-24] MEDS ORDERED: ACETAMINOPHEN 650 MG SUPP (TYLENOL) PR PRN (16:00)
[2022-05-24] MEDS ORDERED: PROMETHAZINE INJ 25 MG/ML (PHENERGAN) AMP IVP PRN (16:00)
[2022-05-24] MEDS ORDERED: LORazepam INJ 2 MG/ML (ATIVAN) VIAL IVP PRN (16:00)
[2022-05-24] MEDS ORDERED: ARTIFICAL TEARS 0.4 ML UNIT DOSE (REFRESH PLUS) OU PRN (16:00)
[2022-05-24] MEDS ORDERED: morphine INJ 4 MG/ML 1 ML (VIAL/SYRINGE) IV PRN (16:00)
[2022-05-24] MEDS ORDERED: inSUlin ASPART (NovoLOG) 1 UNIT/0.01 ML (CHARGE PER UNIT) SC SCH (18:00)
--- NOTE | 2022-05-24 18:14 | Tele-ICU Progress Note ---
Subjective Date Seen by a Provider: May 24, 2022 Time Seen by a Provider: 10:15 Subjective/Events-last exam (Tele-ICU Physician , Progress Note ) Available chart/ vitals / labs / Images reviewed Video assessment done using teleICU camera, rest of exam as per RN Discussed with RN , EXAM PER RN Pressors: , hemodynamically stable A/P Assessment/Plan 1. Paroxysmal atrial fibrillation with intermittent rapid ventricular rate being addressed by the cardiology service Possible pneumonia with acute hypoxic respiratory failure 3. Cardiomyopathy etiology not clear but he is not an ideal candidate to do a ischemic work-up. 4. Acute kidney injury superimposed on chronic kidney disease. 5. Acute on chronic respiratory failure with hypoxemia due to combination of heart failure and possibly pneumonia. 6. History of CVA with expressive aphasia. 7. DNR status. Recommendations 1. Control of the heart rate and congestive heart failure treatment per cardiology 2. Continue IV antibiotic therapy 3. Oxygenation fernandes we will continue intermittent BiPAP and Vapotherm and he is a DNR/DNI status per family. 4. DVT prophylaxis with apixaban per cardiology. Plans in collaboration with bedside consultants and IM MDs. Discussed with RN to reach out if any questions or concerns A total of 22 minutes of critical care time was devoted to this patient today, required to treat and/or prevent further deterioration of critical care condition ( as above) . Sepsis Event Evaluation Height, Weight, BMI Height: 5'6.00" Weight: 177lbs. 2.0oz. [id number]; 24.78 BMI Method: Exam Exam Patient acknowledged, consented, and participated in this virtual visit which was conducted using real time audio/video Vital Signs Date Time Temp Pulse Resp B/P (MAP) Pulse Ox O2 Delivery O2 Flow Rate FiO2 05/24/22 16:00 98 20 128/68 95 NIV Bilevel 30.00 05/24/22 15:35 96 Nasal Cannula 6.00 05/24/22 15:00 92 19 124/67 98 NIV Bilevel 30.00 05/24/22 14:00 101 22 132/67 97 NIV Bilevel 30.00 05/24/22 13:00 102 05/24/22 13:00 103 18 137/78 96 NIV Bilevel 30.00 05/24/22 12:00 36.1 05/24/22 12:00 95 Nasal Cannula 5.00 05/24/22 12:00 106 22 121/75 96 NIV Bilevel 30.00 05/24/22 11:21 95 Nasal Cannula 6.00 05/24/22 11:00 98 22 128/74 99 NIV Bilevel 30.00 05/24/22 10:00 107 24 137/83 98 NIV Bilevel 30.00 05/24/22 09:00 109 20 129/83 98 NIV Bilevel 30.00 05/24/22 08:00 110 18 141/85 98 NIV Bilevel 30.00 05/24/22 08:00 95 Nasal Cannula 5.00 05/24/22 08:00 36.2 05/24/22 07:00 108 05/24/22 07:00 109 18 146/81 95 NIV Bilevel 30.00 05/24/22 06:58 95 Nasal Cannula 6.00 05/24/22 06:56 95 Nasal Cannula 6.00 05/24/22 06:00 105 13 141/72 98 NIV Bilevel 30.00 05/24/22 05:00 102 17 140/81 98 NIV Bilevel 30.00 05/24/22 04:00 NIV Bilevel 40 05/24/22 04:00 108 15 136/81 99 NIV Bilevel 30.00 05/24/22 03:00 118 23 139/79 99 NIV Bilevel 30.00 05/24/22 02:00 142 21 169/90 98 NIV Bilevel 30.00 05/24/22 01:47 142 25 100 30.00 05/24/22 01:00 112 12 142/80 97 NIV Bilevel 30.00 05/24/22 00:57 110 05/24/22 00:00 116 22 147/84 97 NIV Bilevel 30.00 05/23/22 23:59 NIV Bilevel 40 05/23/22 23:00 118 24 153/88 98 NIV Bilevel 30.00 05/23/22 22:31 124 100 30.00 05/23/22 22:27 137 12 100 30.00 05/23/22 22:00 121 20 138/120 99 NIV Bilevel 30.00 05/23/22 21:00 115 13 155/82 100 NIV Bilevel 30.00 05/23/22 20:00 NIV Bilevel 40 05/23/22 20:00 118 15 144/87 100 NIV Bilevel 30.00 05/23/22 19:29 36.4 05/23/22 19:00 120 05/23/22 19:00 122 17 115/84 99 NIV Bilevel 30.00 05/23/22 18:30 117 36 100 30.00 I & O 05/24/22 07:00 Intake Total 260 ml Output Total 1195 ml Balance -935 ml Height & Weight Height: 5'6.00" Weight: 177lbs. 2.0oz. [id number]; 24.78 BMI Method: General Appearance: Anxious, Chronically ill, Mild Distress, Other (BiPAP intact) HEENT: PERRL/EOMI, Normal ENT Inspection, Pharynx Normal, Moist Mucous Membranes Neck: Full Range of Motion, Normal Inspection, Non Tender Respiratory: No Respiratory Distress, Accessory Muscle Use, Decreased Breath Sounds Cardiovascular: Irregularly Irregular, Tachycardia Capillary Refill: Less Than 3 Seconds Extremity: Normal Capillary Refill, Normal Inspection, Normal Range of Motion, Non Tender, No Calf Tenderness, No Pedal Edema Neurologic/Psychiatric: Alert, Oriented x3 Skin: Normal Color, Warm/Dry Lymphatic: No Adenopathy Results Lab Laboratory Tests 05/23/22 05:00 05/24/22 05:17 Assessment/Plan Assessment/Plan ` AVIVA PARKER MD May 24, 2022 18:14
[2022-05-24] MEDS ORDERED: RT-ALBUTEROL/IPRATROPIUM 3 ML (DUONEB) VIAL INH PRN (19:30)
[2022-05-24] MEDS: SALIVA STIMULANT MOUTH SPRAY (BIOTENE) 1.5 OZ MM PRN (20:10)
[2022-05-25] MEDS: SALIVA STIMULANT MOUTH SPRAY (BIOTENE) 1.5 OZ MM PRN (06:31)
--- NOTE | 2022-05-25 09:00 | Speech Therapy Progress Note ---
Therapy Progress Note As comfort care measures have been initiated, skilled speech pathology services will sign off at this time. If additional services are warranted, please reconsult speech pathology. Thank you for the consultation. VASU LOZANO May 25, 2022 09:00
--- NOTE | 2022-05-25 09:00 | Progress Note ---
Standard Progress Note Progress Notes/Assess & Plan Date Seen by a Provider: May 25, 2022 Time Seen by a Provider: 09:00 Progress/Assessment & Plan According to the patient's nurse of today, the family has decided to place the patient on comfort care. As such, cardiology will sign off. Please call if there are any changes in status. KRISTEL PEREZ JR, MD May 25, 2022 09:00
--- NOTE | 2022-05-25 10:02 | Physical Therapy Progress Note ---
Therapy Progress Note Patient has been placed on comfort care. Will DC from PT services at this time. DELFINO RODRÍGUEZ PT May 25, 2022 10:02
--- NOTE | 2022-05-25 21:07 | Progress Note ---
Subjective Subjective/Events-last exam Pt seen at 1055. Resting comfortably in bed, but does express in quite strained voice that he wants water. Family feels his symptoms are managed well, he is in and out of being confused. Objective Exam Last Set of Vital Signs Vital Signs Date Time Temp Pulse Resp B/P (MAP) Pulse Ox O2 Delivery O2 Flow Rate FiO2 05/25/22 20:36 95 Nasal Cannula 5.00 05/24/22 16:00 98 20 128/68 05/24/22 12:00 36.1 05/24/22 04:00 40 Capillary Refill : Less Than 3 Seconds I&O Intake and Output 05/25/22 00:00 Intake Total 0 ml Output Total 1470 ml Balance -1470 ml Intake Oral 0 ml Output Urine Total 1470 ml General: Alert, No Acute Distress Results/Procedures Lab Microbiology 05/21/22 MRSA Screen - Final, Complete MRSA not isolated 05/21/22 Urine Culture - Final, Complete NO GROWTH 05/21/22 Blood Culture - Preliminary, Resulted No growth Assessment/Plan Assessment/Plan (1) Respiratory failure Status: Acute Assessment & Plan: Suspect secondary to pulmonary edema/acute CHF. Lasix being given, appreciate Cardiology recommendations. Also treating with cefepime for possible underlying pneumonia. 05/24- not tolerating bipap, discussed difficulty in managing at this time with family 05/25- changed goals to comfort care yesterday afternoon Qualifiers: Qualified Codes: J96.01 - Acute respiratory failure with hypoxia (2) Atrial fibrillation with rapid ventricular response Status: Acute Assessment & Plan: Cardiology consulted, appreciate recommendations. (3) Pulmonary edema Status: Acute Assessment & Plan: Suspect secondary to acute CHF. IV lasix started, but limited by renal function. Appreciate Cardiology recommendations. Changed goals to comfort on 05/24 pm. Qualifiers: Qualified Codes: J81.0 - Acute pulmonary edema (4) Acute heart failure with reduced ejection fraction and diastolic dysfunction Status: Acute Assessment & Plan: EF 35-40% and grade 1 diastolic dysfunction on echo this stay. Attempting guideline directed medical therapy as blood pressure and renal function will allow, appreciate Cardiology recommendations. 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 Slight worsening inpatient with lasix administration, monitor closely. 05/25 changed to comfort goals on 05/24 afternoon and no longer following. (6) Hyponatremia Status: Resolved (7) Hyperkalemia Status: Resolved (8) Paroxysmal atrial fibrillation Status: Chronic (9) Primary hypertension Status: Chronic (10) Type 2 diabetes mellitus with complication Status: Chronic (11) History of cerebrovascular accident with residual deficit Status: Chronic Assessment & Plan: Left hemiparesis, with essentially no function in left arm and only able to hold weight briefly with left leg, no functional use. (12) Mixed hyperlipidemia Status: Chronic (13) DVT prophylaxis Status: Acute Assessment & Plan: On coumadin at home, difficult to manage INR, changed to apixaban this admission. (14) Goals of care, counseling/discussion Status: Acute Assessment & Plan: 05/24- followed up in the afternoon with family- discussed with and son, his worsening condition in spite of treatment and his difficulty tolerating bipap and now without safe swallow as well. does note that she is confident he would not want intubation or code attempt. Wants to discuss with family further if they feel he would want to transition to comfort care now or at some point later should he continue to worsen in spite of treatment. 05/25- goals changed to comfort yesterday evening per family request TALI WELLS MD May 25, 2022 21:07
[2022-05-26] MEDS: ONDANSETRON 4 MG/2 ML (SDV) Z0FRAN IV PRN (08:40)
[2022-05-26] MEDS ORDERED: APAP 325 MG/10.15 ML LIQ (TYLENOL) UDC PO PRN (12:30)
--- NOTE | 2022-05-26 17:46 | Progress Note ---
Subjective Subjective/Events-last exam Pt alert and comfortable, family denies concerns. Objective Exam Last Set of Vital Signs Vital Signs Date Time Temp Pulse Resp B/P (MAP) Pulse Ox O2 Delivery O2 Flow Rate FiO2 05/26/22 08:12 Nasal Cannula 5.00 05/25/22 20:36 95 05/24/22 16:00 98 20 128/68 05/24/22 12:00 36.1 05/24/22 04:00 40 Capillary Refill : Less Than 3 Seconds I&O Intake and Output 05/26/22 00:00 Intake Total 480 ml Output Total 751 ml Balance -271 ml Intake Oral 480 ml Output Urine Total 751 ml General: Alert, No Acute Distress Results/Procedures Lab Microbiology 05/21/22 MRSA Screen - Final, Complete MRSA not isolated 05/21/22 Urine Culture - Final, Complete NO GROWTH 05/21/22 Blood Culture - Preliminary, Resulted No growth Assessment/Plan Assessment/Plan (1) Respiratory failure Status: Acute Assessment & Plan: Suspect secondary to pulmonary edema/acute CHF. Lasix being given, appreciate Cardiology recommendations. Also treating with cefepime for possible underlying pneumonia. 05/24- not tolerating bipap, discussed difficulty in managing at this time with family 05/25- changed goals to comfort care yesterday afternoon Qualifiers: Qualified Codes: J96.01 - Acute respiratory failure with hypoxia (2) Atrial fibrillation with rapid ventricular response Status: Acute Assessment & Plan: Cardiology consulted, appreciate recommendations. (3) Pulmonary edema Status: Acute Assessment & Plan: Suspect secondary to acute CHF. IV lasix started, but limited by renal function. Appreciate Cardiology recommendations. Changed goals to comfort on 05/24 pm. Qualifiers: Qualified Codes: J81.0 - Acute pulmonary edema (4) Acute heart failure with reduced ejection fraction and diastolic dysfunction Status: Acute Assessment & Plan: EF 35-40% and grade 1 diastolic dysfunction on echo this stay. Attempting guideline directed medical therapy as blood pressure and renal function will allow, appreciate Cardiology recommendations. 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 Slight worsening inpatient with lasix administration, monitor closely. 05/25 changed to comfort goals on 05/24 afternoon and no longer following. (6) Hyponatremia Status: Resolved (7) Hyperkalemia Status: Resolved (8) Paroxysmal atrial fibrillation Status: Chronic (9) Primary hypertension Status: Chronic (10) Type 2 diabetes mellitus with complication Status: Chronic (11) History of cerebrovascular accident with residual deficit Status: Chronic Assessment & Plan: Left hemiparesis, with essentially no function in left arm and only able to hold weight briefly with left leg, no functional use. (12) Mixed hyperlipidemia Status: Chronic (13) DVT prophylaxis Status: Acute Assessment & Plan: On coumadin at home, difficult to manage INR, changed to apixaban this admission. (14) Goals of care, counseling/discussion Status: Acute Assessment & Plan: 05/24- followed up in the afternoon with family- discussed with and son, his worsening condition in spite of treatment and his difficulty tolerating bipap and now without safe swallow as well. does note that she is confident he would not want intubation or code attempt. Wants to discuss with family further if they feel he would want to transition to comfort care now or at some point later should he continue to worsen in spite of treatment. 05/25- goals changed to comfort yesterday evening per family request 05/26- plan to d/c tomorrow with hospice TALI WELLS MD May 26, 2022 17:46
[2022-05-26] MEDS ORDERED: ANTACID SUSP 30 ML UDC (MYLANTA) PO PRN (20:45)
--- NOTE | 2022-05-27 12:19 | Discharge Summary ---
Discharge Summary Hospital Course Problems/Diagnosis: (1) Respiratory failure Status: Acute Assessment & Plan: Suspect secondary to pulmonary edema/acute CHF. Lasix being given, appreciate Cardiology recommendations. Also treating with cefepime for possible underlying pneumonia. 05/24- not tolerating bipap, discussed difficulty in managing at this time with family 05/25- changed goals to comfort care and was stable, so ultimately discharged to home with hospice services Qualifiers: Qualified Codes: J96.01 - Acute respiratory failure with hypoxia (2) Atrial fibrillation with rapid ventricular response Status: Acute Assessment & Plan: Cardiology consulted, appreciate recommendations. Ultimately stopped a fib medications due to pursuing comfort care goals. (3) Pulmonary edema Status: Acute Assessment & Plan: Suspect secondary to acute CHF. IV lasix started, but limited by renal function. Appreciate Cardiology recommendations. Changed goals to comfort on 05/24 pm and was comfortable without significant shortness of breath at discharge. Qualifiers: Qualified Codes: J81.0 - Acute pulmonary edema (4) Acute heart failure with reduced ejection fraction and diastolic dysfunction Status: Acute Assessment & Plan: EF 35-40% and grade 1 diastolic dysfunction on echo this stay. Attempting guideline directed medical therapy as blood pressure and renal function will allow, appreciate Cardiology recommendations. 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 Slight worsening inpatient with lasix administration, monitor closely. 05/25 changed to comfort goals on 05/24 afternoon and no longer following. (6) Hyponatremia Status: Resolved Resolution Date/Time: 05/22/22 @ 14:44 (7) Hyperkalemia Status: Resolved Resolution Date/Time: 05/23/22 @ 14:44 (8) Paroxysmal atrial fibrillation Status: Chronic (9) Primary hypertension Status: Chronic (10) Type 2 diabetes mellitus with complication Status: Chronic (11) History of cerebrovascular accident with residual deficit Status: Chronic Assessment & Plan: Left hemiparesis, with essentially no function in left arm and only able to hold weight briefly with left leg, no functional use. (12) Mixed hyperlipidemia Status: Chronic (13) Goals of care, counseling/discussion Status: Acute Assessment & Plan: 05/24- followed up in the afternoon with family- discussed with and son, his worsening condition in spite of treatment and his difficulty tolerating bipap and now without safe swallow as well. does note that she is confident he would not want intubation or code attempt. Wants to discuss with family further if they feel he would want to transition to comfort care now or at some point later should he continue to worsen in spite of treatment. 05/25- goals changed to comfort yesterday evening per family request 05/27- discharged to home with hospice Hospital Course Date of Admission: May 21, 2022 at 15:46 Admission Diagnosis : Family Physician/Provider: Sumeet Sears MD Date of Discharge: 05/27/22 Discharge Diagnosis: See problem list Hospital Course: See problem list Labs and Pending Lab Test: Microbiology 05/21/22 MRSA Screen - Final, Complete MRSA not isolated 05/21/22 Urine Culture - Final, Complete NO GROWTH 05/21/22 Blood Culture - Preliminary, Resulted No growth Home Meds Active Reported Mucinex (Guaifenesin) 1,200 Mg Tab.er.12h 1,200 Mg PO Q12H Vision Formula Tablet (Vit A/C/E/Zinc/Selenium/Copper) 1,000-60-30 Tablet 1 Each PO DAILY Vitamin D3 (Cholecalciferol (Vitamin D3)) 50 Mcg (2000 Unit) Capsule 50 Mcg PO DAILY Vitamin C (Ascorbate Calcium) 500 Mg Tablet 500 Mg PO DAILY Flaxseed (Flaxseed Oil) 1,000 Mg Capsule 1,000 Mg PO DAILY Niacin 500 mg Capsule (Niacin (Inositol Niacinate)) 500 Mg Capsule 500 Mg PO DAILY Multivitamin 1 Each Tablet 1 Each PO DAILY Loratadine 10 Mg Tablet 10 Mg PO DAILY PRN Tylenol Extra Strength (Acetaminophen) 500 Mg Tablet 500 Mg PO 0900,1800 Famotidine 20 Mg Tablet 20 Mg PO DAILY PRN Warfarin Sodium 1 Mg Tablet 1.5 Mg PO WED @1800 TAKES 1 & (1MG) TABS Gabapentin 100 Mg Capsule 100 Mg PO HS Metformin HCl 500 Mg Tablet 500 Mg PO BID Cefdinir 300 Mg Capsule 300 Mg PO BID FILLED 05-19-2022 #14/7 DAY SUPPLY Flomax (Tamsulosin HCl) 0.4 Mg Cap 0.4 Mg PO 1800 Tylenol Extra Strength (Acetaminophen) 500 Mg Tablet 1,000 Mg PO HS TAKES 2 (500MG) TABS Ferrex 150 (Iron Polysaccharide Complex) 150 Mg Capsule 150 Mg PO BID Warfarin Sodium 1 Mg Tablet 2 Mg PO METZGER,MO,TU,TH,FR,SA @1800 TAKES 2 (1MG) TABS Montelukast Sodium 10 Mg Tablet 10 Mg PO HS Finasteride 5 Mg Tablet 5 Mg PO DAILY Atorvastatin Calcium 10 Mg Tablet 5 Mg PO HS TAKES 1/2 (10MG) TABLET Trimethoprim 100 Mg Tablet 100 Mg PO HS Januvia (Sitagliptin Phosphate) 100 Mg Tablet 100 Mg PO DAILY Omeprazole 20 Mg Capsule.dr 20 Mg PO DAILY Assessment/Pt DC Instructions Follow up via hospice Discharge Diet: No Restrictions Activity as Tolerated: Yes Discharge Physical Examination Allergies: Coded Allergies: aspirin (Verified Allergy, Severe, 11/22/18) butalbital (Verified Allergy, Severe, 11/22/18) atropine (Verified Allergy, Unknown, 11/22/18) celecoxib (Verified Allergy, Unknown, 11/22/18) diphenoxylate (Verified Allergy, Unknown, 11/22/18) levofloxacin (Verified Allergy, Unknown, 11/22/18) strawberry (Verified Allergy, Unknown, 11/22/18) Uncoded Allergies: BEE STING (Allergy, Severe, 11/22/18) General Appearance: No Apparent Distress Neurologic/Psychiatric: Alert, Normal Mood/Affect TALI WELLS MD May 27, 2022 12:19
[2022-05-27] MEDS: ONDANSETRON 4 MG/2 ML (SDV) Z0FRAN IV PRN (14:13)
[2022-05-27 15:35] VITALS: BP 142/80
== END 2022-05-27 15:00 | disposition hospice, home (50) | DRG 291 ==
LOC: EDUNIT# 13:13 → ER FS 13:14 → ICU 15:46 → 4TH 05-24 18:23
PROVIDERS: ADMIT Internal Medicine; ATTEND Family Medicine
PROC: 5A09357 Assistance with Respiratory Ventilation, Less than 24 Consecutive Hours, Continuous Positive Airway Pressure (ICD-10-PCS; principal; 2022-05-22)
DX: I13.0 Hypertensive heart and chronic kidney disease with heart failure and stage 1 through stage 4 chronic kidney disease, or unspecified chronic kidney disease (principal); I50.21 Acute systolic (congestive) heart failure; J18.9 Pneumonia, unspecified organism; J96.01 Acute respiratory failure with hypoxia; J96.21 Acute and chronic respiratory failure with hypoxia; N17.9 Acute kidney failure, unspecified; E87.1 Hypo-osmolality and hyponatremia; I69.354 Hemiplegia and hemiparesis following cerebral infarction affecting left non-dominant side; J44.0 Chronic obstructive pulmonary disease with (acute) lower respiratory infection; I42.9 Cardiomyopathy, unspecified; N18.32 Chronic kidney disease, stage 3b; E87.5 Hyperkalemia; I48.0 Paroxysmal atrial fibrillation; E11.22 Type 2 diabetes mellitus with diabetic chronic kidney disease; E78.2 Mixed hyperlipidemia; Z51.5 Encounter for palliative care; Z79.01 Long term (current) use of anticoagulants; K21.9 Gastro-esophageal reflux disease without esophagitis; M19.90 Unspecified osteoarthritis, unspecified site; F32.A Depression, unspecified; Z87.891 Personal history of nicotine dependence; Z66 Do not resuscitate; I34.0 Nonrheumatic mitral (valve) insufficiency; D64.9 Anemia, unspecified; R54 Age-related physical debility; Z20.822 Contact with and (suspected) exposure to COVID-19
CPT/HCPCS: 36415; 36600; 71045; 80053; 80061; 81000; 82805; 82947; 83605; 83735; 83880; 84100; 84484; 85007; 85025; 85027; 85610; 85730; 86141; 87040; 87081; 87088; 87636; 93005; 93306; 94640; 94660; 94664; 94760; 96365; 96367; 96375